=== PATIENT | male | born 1945 | race Caucasian/White ===

== ENCOUNTER 2022-03-27 22:01 | Emergency (ER) | payer OTHER ==
--- NOTE | 2022-03-27 23:10 | EDPHYS ---
Physician Documentation [facility] Name: David Kumar Age: 76 yrs Sex: Male : 1945 Arrival Date: 03/27/2022 Time: 22:06 Bed 3 Private MD: ED Physician Lino Rojas HPI: 03/28 03:29 This 76 yrs old Male presents to ER via Ambulatory with complaints of Urinary Problem. kdr 03:29 The patient presents with urinary symptoms, retention. Onset: The symptoms/episode kdr began/occurred gradually, today. Modifying factors: The symptoms are alleviated by nothing, the symptoms are aggravated by nothing. Associated signs and symptoms: The patient has no apparent associated signs or symptoms. Severity of symptoms: At their worst the symptoms were moderate, severe, in the emergency department the symptoms are unchanged. The patient has not experienced similar symptoms in the past. The patient has been recently seen by a physician: Patient had a bronchoscopy done earlier today and since then has not been able to urinate. He did have general anesthesia for the procedure. Historical: - Allergies: 03/27 22:17 Albuterol; tw5 - PMHx: 22:17 CAD; Ulcers; tw5 - Immunization history:: Flu vaccine is up to date. - Social history:: Smoking status: Patient/guardian denies using tobacco, the patient reports quitting approximately 12 years ago. ROS: 03/28 03:29 Constitutional: Negative for fever, chills, and weight loss, Eyes: Negative for injury, kdr pain, redness, and discharge, ENT: Negative for injury, pain, and discharge, Neck: Negative for injury, pain, and swelling, Cardiovascular: Negative for chest pain, palpitations, and edema, Respiratory: Negative for shortness of breath, cough, wheezing, and pleuritic chest pain, Abdomen/GI: Negative for abdominal pain, nausea, vomiting, diarrhea, and constipation, Back: Negative for injury and pain, MS/Extremity: Negative for injury and deformity, Skin: Negative for injury, rash, and discoloration, Neuro: Negative for headache, weakness, numbness, tingling, and seizure activity. Psych: Negative for depression, anxiety, suicide ideation, homicidal ideation, and hallucinations, Allergy/Immunology: Negative for hives, rash, and allergies, Endocrine: Negative for neck swelling, polydipsia, polyuria, polyphagia, and marked weight changes, Hematologic/Lymphatic: Negative for swollen nodes, abnormal bleeding, and unusual bruising. : Positive for urinary symptoms, difficulty urinating. Exam: 03:29 Constitutional: This is a well developed, well nourished patient who is awake, alert, kdr and in no acute distress. Head/Face: Normocephalic, atraumatic. Eyes: Pupils equal round and reactive to light, extra-ocular motions intact. Lids and lashes normal. Conjunctiva and sclera are non-icteric and not injected. Cornea within normal limits. Periorbital areas with no swelling, redness, or edema. Abdomen/GI: Soft, non-tender, with normal bowel sounds. No distension or tympany. No guarding or rebound. No evidence of tenderness throughout. Back: No spinal tenderness. No costovertebral tenderness. Full range of motion. Vital Signs: 03/27 22:13 BP 129 / 75; Pulse 62; Resp 18; Temp 98.2(O); Pulse Ox 96% on R/A; Weight 72.57 kg; tw5 Height 5 ft. 10 in. (177.80 cm); Pain 2/10; 23:16 BP 116 / 78; Pulse 54; Resp 18; Pulse Ox 97% on R/A; sm5 22:13 Body Mass Index 22.96 (72.57 kg, 177.80 cm) tw5 22:13 "It okeefe if I try and pee." tw5 MDM: 23:09 Patient medically screened. kdr 03/28 03:29 Data reviewed: vital signs, nurses notes, radiologic studies. Counseling: I had a kdr detailed discussion with the patient and/or guardian regarding: the historical points, exam findings, and any diagnostic results supporting the discharge/admit diagnosis, radiology results, the need for outpatient follow up. ED course: Bladder scanner revealed 350 cc of urine. Subsequently the patient was catheterized and returned approximately 850 mL of urine. He felt much better. Hall catheter was removed and the patient was discharged home in good condition. He was happy with the care provided the plan for discharge and follow-up. 03/27 22:47 Order name: Bladder Scanner; Complete Time: 23:05 kdr Administered Medications: No medications were administered Disposition Summary: 03/27/22 23:09 Discharge Ordered Location: Home kdr Problem: new kdr Symptoms: are resolved kdr Condition: Stable kdr Diagnosis - Urinary Retention kdr Followup: kdr - With: Private Physician - When: 1 - 2 days - Reason: If symptoms return, Further diagnostic work-up, Recheck today's complaints, Continuance of care, Re-evaluation by your physician Discharge Instructions: - Discharge Summary Sheet kdr - Acute Urinary Retention, Male, [id number] kdr Forms: - Medication Reconciliation Form kdr - Thank You Letter kdr Signatures: Lino Rojas MD MD kdr Johana Phillips tw5
--- NOTE | 2022-03-27 23:10 | ER ---
Nurse's Notes [facility] Name: David Kumar Age: 76 yrs Sex: Male : 1945 Arrival Date: 03/27/2022 Time: 22:06 Bed 3 Private MD: Diagnosis: Urinary Retention Presentation: 03/27 22:13 Chief complaint: Patient states: "I had a test done today and I have not been able to tw5 pee since." Patient handed nursing staff Pulmonary discharge instructions for bronchocospy. "They recommended taylor with a valve on it.". Coronavirus screen: Vaccine status: Patient reports receiving the 2nd dose of the covid vaccine. Umbrella Here. Ebola Screen: Patient negative for fever greater than or equal to 101.5 degrees Fahrenheit, and additional compatible Ebola Virus Disease symptoms Patient denies exposure to infectious person. Patient denies travel to an Ebola-affected area in the 21 days before illness onset. Initial Sepsis Screen: Does the patient meet any 2 criteria? No. Patient's initial sepsis screen is negative. Does the patient have a suspected source of infection? Yes: Dysuria/Frequency/Urgency/UTI. Risk Assessment: Do you want to hurt yourself or someone else? Patient reports no desire to harm self or others. Onset of symptoms was March 27, 2022. 22:13 Acuity: CHRISTIANO 3 tw5 22:13 Method Of Arrival: Ambulatory tw5 Triage Assessment: 22:17 General: Appears in no apparent distress. Behavior is calm, cooperative, appropriate tw5 for age. Pain: Pain currently is 3 out of 10 on a pain scale. Historical: - Allergies: 22:17 Albuterol; tw5 - PMHx: 22:17 CAD; Ulcers; tw5 - Immunization history:: Flu vaccine is up to date. - Social history:: Smoking status: Patient/guardian denies using tobacco, the patient reports quitting approximately 12 years ago. Screenin:15 Abuse screen: Denies threats or abuse. Denies injuries from another. Nutritional sm5 screening: No deficits noted. Tuberculosis screening: No symptoms or risk factors identified. Fall Risk Ambulatory Aid- Crutches/Cane/Walker (15 pts). Total Norton Fall Scale indicates No Risk (0-24 pts). Assessment: 23:14 General: Appears in no apparent distress. Behavior is cooperative. Pain: Denies pain. sm5 Neuro: No deficits noted. Level of Consciousness is awake, alert, obeys commands, Oriented to person, place, time, situation. Cardiovascular: No deficits noted. Capillary refill < 3 seconds Patient's skin is warm and dry. Respiratory: No deficits noted. Airway is patent Trachea midline Respiratory effort is even, unlabored. GI: No deficits noted. Abdomen is flat, non-distended. : Reports inability to void. Vital Signs: 22:13 BP 129 / 75; Pulse 62; Resp 18; Temp 98.2(O); Pulse Ox 96% on R/A; Weight 72.57 kg; tw5 Height 5 ft. 10 in. (177.80 cm); Pain 2/10; 23:16 BP 116 / 78; Pulse 54; Resp 18; Pulse Ox 97% on R/A; sm5 22:13 Body Mass Index 22.96 (72.57 kg, 177.80 cm) tw5 22:13 "It okeefe if I try and pee." tw5 ED Course: 22:06 Patient arrived in ED. kz 22:15 Lino Rojas MD is Attending Physician. kdr 22:17 Triage completed. tw5 22:17 Arm band placed on right wrist. tw5 22:36 Alyce Shrestha, YUNIER is Primary Nurse. sm5 23:05 Bladder scan completed. 324ml. sm5 23:15 Patient has correct armband on for positive identification. Bed in low position. Call sm5 light in reach. Side rails up X2. 23:15 No provider procedures requiring assistance completed. Patient did not have IV access sm5 during this emergency room visit. 23:15 Straight cath inserted, using sterile technique, 16 Fr. Returned 800ml. sm5 Administered Medications: No medications were administered Medication: 23:15 VIS not applicable for this client. sm5 Outcome: 23:09 Discharge ordered by . kdr 23:24 Discharged to home ambulatory. tw5 23:24 Condition: stable 23:24 Discharge instructions given to patient, Instructed on discharge instructions, follow up and referral plans. Demonstrated understanding of instructions, follow-up care. 23:24 Patient left the ED. tw5 Signatures: Lino Rojas MD MD kdr Wood, Tiffany tw Alyce Shrestha, YUNIER RN sm5 Shaffer, Mally kz
[2022-03-27 23:28] VITALS: TEMP 98.2
[2022-03-27 23:30] VITALS: BP 116/78; O2SAT 97
== END 2022-03-27 23:24 | disposition home or self-care (01) ==
LOC: ER 22:01
DX: R33.9 Retention of urine, unspecified (principal); I25.10 Atherosclerotic heart disease of native coronary artery without angina pectoris; Z88.8 Allergy status to other drugs, medicaments and biological substances
CPT/HCPCS: 51702; 99281

== ENCOUNTER 2022-12-11 08:48 | Inpatient (IN) | payer OTHER ==
[2022-12-11 09:25] LABS: Absolute Lymphocytes (CBC) 0.8 K/uL (0.7-4.9); Hematocrit 47.5 % (39.6-49.0); Lymphocytes % 4.8 % (15.3-44.8); MCV 92.3 fL (80-100); MPV 8.2 fL (7.6-11.3); RBC Red Blood Cell Count 5.15 M/uL (4.33-5.43)
[2022-12-11] MEDS ORDERED: NA CHLORIDE 0.9% 2,000 ML ONE (09:27)
[2022-12-11 09:44] LABS: Albumin 2.6 g/dL (3.4-5.0); Bilirubin Total 2.6 mg/dL (0.2-1.0); Potassium 4.6 mmol/L (3.5-5.1); Protein, Total 6.8 g/dL (6.4-8.2)
[2022-12-11] MEDS ORDERED: CEFEPIME 2 GM VIAL ONE (09:47)
[2022-12-11] MEDS ORDERED: NA CHLORIDE 0.9% 100 ML ONE (09:47)
[2022-12-11 10:10] LABS: Protime INR 1.44
[2022-12-11] MEDS ORDERED: NOREPINEPHRINE BITARTRATE/D5W 4 MG/250 ML BAG IV ONE ×2 (10:49→16:26)
[2022-12-11 10:59] LABS: Blood Morphology Comment NOT SEEN (NOT SEEN); Platelet Estimate ADEQ
--- NOTE | 2022-12-11 11:33 | RAD REPORT ---
EXAM DESCRIPTION: RAD - Chest Single View - 12/11/2022 11:05 am CLINICAL HISTORY: sob, ams Chest pain. COMPARISON: No comparisons FINDINGS: Portable technique limits examination quality. The lungs are emphysematous but grossly clear. The heart is normal in size. No displaced fractures.St ernotomy wires. IMPRESSION: COPD.
[2022-12-11 12:41] LABS: SARS-COV-2 RT PCR NEGATIVE (NEGATIVE)
[2022-12-11] MEDS ORDERED: AMIODARONE HCL 900 MG in Dextrose 5%-Water 482 ML IV SCH (13:00)
[2022-12-11 13:03] LABS: Urine Blood 3+ (Negative); Urine Glucose Negative (Negative); Urine Protein 2+ (Negative); Urine Specific Gravity 1.025 (1.005-1.030)
[2022-12-11 13:23] LABS: Urine Bacteria <20 /HPF (<20); Urine Mucus 2+ /HPF (None Seen); Urine RBC >50 /HPF (None Seen); Urine WBC Clump Moderate /HPF (None Seen)
[2022-12-11] MEDS ORDERED: HEPARIN/D5W 25,000 UNIT/500 ML BAG IV ONE (13:25)
--- NOTE | 2022-12-11 13:46 | RAD REPORT ---
EXAM DESCRIPTION: CT - Head Brain Wo Cont - 12/11/2022 1:33 pm CLINICAL HISTORY: ams Headache, drowsiness COMPARISON: No comparisons TECHNIQUE: All CT scans are performed using dose optimization technique as appropriate and may inclu de automated exposure control or mA/KV adjustment according to patient size. FINDINGS: No intracranial hemorrhage, hydrocephalus or extra-axial fluid collection.Mild generalized brain atrophy is present with mild periventricular and deep white matter chronic microvascular ische jesus changes.No areas of brain edema or evidence of midline shift. Small amount of fluid in both maxillary antra. The calvarium is intact. IMPRESSION: No acute intracranial abnormality.
[2022-12-11] MEDS ORDERED: D5W 100 ML IV ONE (13:47)
[2022-12-11] MEDS ORDERED: AMIODARONE HCL 150 MG/3 ML INJ IV ONE (13:47)
--- NOTE | 2022-12-11 13:52 | RAD REPORT ---
EXAM DESCRIPTION: CT - Chest Abd Pelvis Wo Con - 12/11/2022 1:33 pm CLINICAL HISTORY: Chest and abdomen pain. ams, sob COMPARISON: No comparisons TECHNIQUE: A limited noncontrast study was performed. All CT scans are performed using dose optimization technique as appropriate and may include automated exposure control or mA/KV adjustment according to patient size. FINDINGS: Significant emphysema is present.There is a moderate sized area of consolidation in the me dial left lung base.Trace right pleural effusion.No intrathoracic adenopathy. The liver, spleen, pancreas, adrenal glands and left kidney are within normal limits. 6 cm cyst right kidney. No bowel obstruction, free air, free fluid or abscess. Moderate retained stool in the rectum. No pat hologic lymphadenopathy in the abdomen or pelvis. No worrisome osseous finding. IMPRESSION: Moderate consolidation medial left lung base may represent pneumonia. Recommend follow-u p imaging until clearance. Fecal retention in the rectum.
[2022-12-11] MEDS ORDERED: ACETAMINOPHEN 650MG/RECT SUPP PR ONE (14:18)
--- NOTE | 2022-12-11 14:27 | ER ---
Nurse's Notes [facility] Name: David Kumar Age: 77 yrs Sex: Male : 1945 Arrival Date: 12/11/2022 Time: 08:54 Bed 2 Private MD: Diagnosis: Community-acquired pneumonia;Severe sepsis with septic shock;Atrial fibrillation with RVR Presentation: 12/11 08:37 Chief complaint: EMS states: reports difficulty breathing and altered mental kc6 status. client was in the low 80's o RA and came back up to the low 90's on NRB. client is in afib RVR en route. 5mg of metoprolol IVP given en route. 08:37 Coronavirus screen: At this time, the client does not indicate any symptoms associated kc6 with coronavirus-19. Ebola Screen: No symptoms or risks identified at this time. Initial Sepsis Screen: Does the patient meet any 2 criteria? RR > 20 per min. Temp <36.0*C (96.8*F)) or > 38.3*C (100.9*F). Systolic BP < 90 mmHg. Mean Arterial Pressure (MAP) < 65. Altered Mental Status. HR > 90 bpm. Yes Does the patient have a suspected source of infection? No. Patient's initial sepsis screen is negative. Risk Assessment: Do you want to hurt yourself or someone else? Patient reports no desire to harm self or others. Onset of symptoms was December 11, 2022. 08:37 Method Of Arrival: EMS: [facility] 08:37 Acuity: CHRISTIANO 2 kc6 Triage Assessment: 08:37 General: Appears distressed, uncomfortable, unkempt, Behavior is quiet. Pain: Unable to kc6 use pain scale. Patient is disoriented. EENT: No signs and/or symptoms were reported regarding the EENT system. Neuro: Gamino Agitation-Sedation Scale (RASS): 0 - Alert and Calm Level of Consciousness is awake, alert, Oriented to none. Cardiovascular: Heart tones S1 S2 present Capillary refill < 3 seconds. Respiratory: Airway is patent Trachea midline Respiratory effort is even, with retractions, Respiratory pattern is regular, tachypnea. GI: No signs and/or symptoms were reported involving the gastrointestinal system. : No signs and/or symptoms were reported regarding the genitourinary system. Derm: Skin is intact. Derm: No signs and/or symptoms reported regarding the dermatologic system. Skin with poor turgor Skin is pink, warm \T\ dry. Wound noted sacrum, right buttocks Bruising that is dark purple, on right shoulder. Musculoskeletal: No signs and/or symptoms reported regarding the musculoskeletal system. Circulation, motion, and sensation intact. Capillary refill < 3 seconds, Range of motion: intact in all extremities. Historical: - Allergies: 09:34 Albuterol; kc6 09:34 gabapentin; kc6 - Home Meds: 14:58 aspirin 81 mg oral tab [Active]; atorvastatin 20 mg oral tab [Active]; kc6 carboxymethylcellulose-citric acid oral [Active]; cyanocobalamin (vitamin B-12) oral [Active]; folic acid 1 mg oral tab [Active]; galantamine 16 mg oral C24P [Active]; ketoconazole 2 % topical sham [Active]; montelukast 10 mg oral tab [Active]; nitroglycerin 0.4 mg sublingual subl [Active]; omeprazole 20 mg oral TbEC [Active]; tamsulosin 0.4 mg oral cap [Active]; terbinafine hcl 1% cream [Active]; - PMHx: 09:34 CAD; Ulcers; kc6 13:53 COPD; jl7 14:58 stage 1 lung cancer; kc6 - Immunization history:: Adult Immunizations unknown. - Social history:: Smoking status: unknown. Screenin:49 [facility] ED Fall Risk Assessment (Adult) History of falling in the last 3 months, kc6 including since admission No falls in past 3 months (0 pts) Confusion or Disorientation Yes (5 pts) Intoxicated or Sedated No (0 pts) Impaired Gait No (0 pts) Mobility Assist Device Used No (0 pt) Altered Elimination Yes (1 pt) Score/Fall Risk Level 3 or more points = High Risk Oriented to surroundings, Maintained a safe environment, Educated pt \T\ family on fall prevention, incl call for assistance when getting out of bed, Assessed \T\ reinforced patient's understanding of fall precautions, Hourly rounding (assess needs \T\ fall precautionary measures) done. Abuse screen: Denies threats or abuse. Denies injuries from another. Nutritional screening: No deficits noted. Tuberculosis screening: No symptoms or risk factors identified. Assessment: 08:34 Reassessment: Code sepsis called. jl7 09:30 Reassessment: Attempted to contact phlebotomy for assistance with obtaining blood jl7 cultures, no response. 09:35 Reassessment: Attempted to contact phlebotomy for assistance with obtaining blood jl7 cultures, no response. 09:37 Reassessment: No changes from previously documented assessment. Patient and/or family kc6 updated on plan of care and expected duration. Pain level reassessed. 09:40 Reassessment: Phlebotomy notified via text message on phlebotomy pager of need for jl7 assistance with obtaining blood cultures. 10:10 Reassessment: Multiple attempts to contact phlebotomy for assistance with obtaining jl7 blood cultures, no answer on lab extension [id number]. Phlebotomy notified via text message on phlebotomy pager of need for assistance with obtaining blood cultures. No response from phlebotomy. First set of blood cultures obtained after several missed attempts. HARSHAL Godinez at bedside to place central line. 10:37 Reassessment: No changes from previously documented assessment. Patient and/or family kc6 updated on plan of care and expected duration. Pain level reassessed. 11:37 Reassessment: No changes from previously documented assessment. Patient and/or family kc6 updated on plan of care and expected duration. Pain level reassessed. 11:45 Reassessment: notified HARSHAL Godinez of BP. stated to keep SBP > 90 and MAP 65 or >. no [facility] change to current rate at this time. 12:25 Reassessment: notified HARSHAL Godinez of afib RVR rate 130's-150's. no new orders received at [facility] this time. 12:37 Reassessment: Patient appears in no apparent distress at this time. No changes from [facility] previously documented assessment. Patient and/or family updated on plan of care and expected duration. Pain level reassessed. 13:04 Reassessment: Nikhil Kumar (son) [phone]. [facility] 13:37 Reassessment: Patient appears in no apparent distress at this time. No changes from [facility] previously documented assessment. Patient and/or family updated on plan of care and expected duration. Pain level reassessed. 14:22 Reassessment: Provider notified of urine leaking around Hall catheter, stated d/c vg1 catheter and place condom cath. Pt linen, gown and brief changed. 14:33 Reassessment: Patient appears in no apparent distress at this time. No changes from 6 previously documented assessment. Patient and/or family updated on plan of care and expected duration. Pain level reassessed. 15:17 Reassessment: Laurel Kumar () [phone]. [facility] 15:33 Reassessment: Patient appears in no apparent distress at this time. No changes from kc6 previously documented assessment. Patient and/or family updated on plan of care and expected duration. Pain level reassessed. 16:33 Reassessment: Patient appears in no apparent distress at this time. No changes from 6 previously documented assessment. Patient and/or family updated on plan of care and expected duration. Pain level reassessed. 16:42 Reassessment: please see [facility] for further charting. [facility] Vital Signs: 08:37 BP 85 / 65; Pulse 131; Resp 34 S; Temp 93.3(R); Pulse Ox 94% on Non-rebreather mask; kc6 09:00 BP 95 / 61; Pulse 127; Resp 28 S; Pulse Ox 87% on BiPAP; kc6 09:15 BP 88 / 58; Pulse 131; Resp 39 S; kc6 09:22 Weight 66.5 kg (M); Height 5 ft. 9 in. (175.26 cm) (R); kc6 09:30 BP 98 / 60; Pulse 125; Resp 29 S; Pulse Ox 95% on BiPAP; kc6 09:45 BP 107 / 72; Pulse 120; Pulse Ox 97% on BiPAP; kc6 10:00 BP 88 / 66; Pulse 120; Resp 27 S; Pulse Ox 95% on BiPAP; kc6 10:15 BP 84 / 65; Pulse 117; Resp 32 S; Pulse Ox 94% on BiPAP; kc6 10:30 BP 89 / 59; Pulse 122; Resp 29 S; Pulse Ox 95% on BiPAP; kc6 10:45 BP 73 / 58; Pulse 122; Resp 35 S; Pulse Ox 93% on BiPAP; kc6 10:47 BP 87 / 70; Pulse 123; Resp 33 S; kc6 11:08 BP 91 / 64; Pulse 122; Resp 38 S; Pulse Ox 88% on BiPAP; kc6 11:15 BP 82 / 64; Pulse 126; Resp 37 S; Pulse Ox 88% on BiPAP; kc6 11:30 BP 94 / 71; Pulse 124; Resp 39 S; Pulse Ox 94% on BiPAP; kc6 11:45 BP 103 / 68; Pulse 134; Resp 30 S; Pulse Ox 91% on BiPAP; kc6 12:00 BP 96 / 79; Pulse 141; Resp 39 S; Pulse Ox 94% on BiPAP; kc6 12:15 BP 103 / 80; Pulse 137; Resp 26; Pulse Ox 92% on BiPAP; vg1 12:30 BP 106 / 82; Pulse 147; Resp 34; Pulse Ox 94% on BiPAP; vg1 12:45 BP 107 / 62; Pulse 135; Resp 38; Pulse Ox 94% on BiPAP; vg1 13:00 BP 101 / 76; Pulse 141; Resp 38; Pulse Ox 94% on BiPAP; vg1 13:30 BP 87 / 61; Pulse 127; Resp 38; Pulse Ox 93% on BiPAP; vg1 13:30 BP 87 / 61; jl7 13:35 BP 88 / 60; Pulse 128; Resp 44; Pulse Ox 91% on BiPAP; vg1 13:37 BP 88 / 60; Pulse 128; jl7 13:45 BP 97 / 70; Pulse 126; Resp 33; Pulse Ox 92% on BiPAP; vg1 14:00 BP 103 / 77; Pulse 113; Resp 34; Pulse Ox 92% on BiPAP; vg1 14:12 Temp 100.3(R); vg1 14:30 BP 102 / 68; Pulse 110; Resp 36; Pulse Ox 97% on BiPAP; vg1 14:45 BP 105 / 70; Pulse 115; Resp 37 S; Pulse Ox 99% on BiPAP; kc6 15:00 BP 121 / 76; Pulse 115; Resp 37 S; Pulse Ox 99% on BiPAP; kc6 15:15 BP 92 / 65; Pulse 110; Resp 32 S; Pulse Ox 98% on BiPAP; kc6 15:30 BP 100 / 67; Pulse 112; Resp 30 S; Pulse Ox 100% on BiPAP; kc6 15:45 BP 92 / 65; Pulse 113; Resp 40 S; Pulse Ox 99% on BiPAP; kc6 16:00 BP 102 / 74; Pulse 115; Resp 38 S; Pulse Ox 100% on BiPAP; kc6 16:15 BP 90 / 73; Pulse 109; Resp 33 S; Pulse Ox 99% on BiPAP; kc6 16:15 BP 108 / 86; Pulse 112; Resp 32 S; Pulse Ox 96% on BiPAP; kc6 12/12 23:00 Temp 97.6(O); mw1 12/11 09:22 Body Mass Index 21.65 (66.50 kg, 175.26 cm) kc6 ED Course: 12/11 08:37 Arm band placed on. kc6 08:54 Patient arrived in ED. kc6 08:54 Hossein Rowe DO is Attending Physician. ms3 08:54 Missed attempt(s): 22 gauge in left forearm. unable to obain. vg1 08:55 [facility] 08:58 Missed attempt(s): 22 gauge in left forearm. unable to obtain . vg1 09:00 First set of blood cultures drawn missed attempt, unable to obtain. jl7 09:10 First set of blood cultures drawn Missed attempt, unable to obtain. jl7 09:15 Farida Griffin, RN is Primary Nurse. kc6 09:25 First set of blood cultures drawn missed attempt, unable to obtain. jl7 09:34 Triage completed. kc6 09:36 Patient has correct armband on for positive identification. Placed in gown. Bed in low kc6 position. Call light in reach. Side rails up X2. 09:36 Maintain EMS IV. Dressing intact. Good blood return noted. Site clean \T\ dry. Gauge \T\ terence 6 site: 18G RFA. 09:57 First set of blood cultures drawn by me. jl7 10:25 Assisted provider with central line placement. Set up central line tray. Triple lumen kc6 line placed in right femoral. Line placed by Herbert CAPUTO Placement verified by blood return, Dressed with Tegaderm, Blood was collected. Patient tolerated well. Patient \T\ family education about procedure, CLABSI prevention and S/S of infection? Yes. Was handwashing/sanitizing done immediately prior to procedure? Yes. Was patient positioned to in a way to prevent air embolism? Yes. Was procedure site sterilized? Yes, with chlorhexidine. Was the site allowed to dry? Yes. Was local anesthetic and/or sedation utilized? Yes. During the procedure, did the Practitioner(s) maintain a sterile field? Yes. Was blood aspirated from each lumen? Yes. After the procedure, did the Practitioner(s) clean the site and apply a sterile dressing? Yes. 11:07 Chest Single View XRAY In Process Unspecified. EDMS 11:56 COVID-19/FLU A+B Sent. kc6 13:07 Urine Microscopic Only Sent. kc6 13:07 Urine Culture Sent. kc6 13:35 CT Head Brain wo Cont In Process Unspecified. EDMS 13:35 CT Chest Abdomen Pelvis W/O Contrast In Process Unspecified. EDMS 14:26 Anselmo Caldwell is Hospitalizing Provider. jmm 16:44 Patient admitted, IV remains in place. [facility] Administered Medications: 09:30 Drug: NS 0.9% (30 ml/kg) 30 ml/kg Route: IV; Rate: bolus; Site: right forearm; [facility] 10:30 Follow up: Response: No adverse reaction; IV Status: Completed infusion; IV Intake: kc6 2000ml 10:45 Drug: Cefepime 2 grams Route: IVPB; Rate: 200 ml/hr; Infused Over: 30 mins; Site: right kc6 femoral; 11:45 Follow up: Response: No adverse reaction; IV Status: Completed infusion; IV Intake: kc6 100ml 10:54 Drug: Norepinephrine 0.1 mcg/kg/min Route: IV; Rate: calculated rate; Site: right kc6 femoral; 11:27 Follow up: Rate change 0.15 mcg/kg/min [facility] 13:30 Follow up: BP 87 / 61; Rate change 0.2 mcg/kg/min [facility] 13:37 Follow up: BP 88 / 60; Pulse 128 bpm; Rate change 0.25 mcg/kg/min [facility] 18:17 Follow up: Response: No adverse reaction; IV Status: Infusion continued upon admission [facility] 13:50 Drug: amiodarone 150 mg Volume: 100 ml; Route: IVPB; Infused Over: 10 mins; Site: right jl7 femoral; 14:53 Follow up: Response: No adverse reaction; IV Status: Completed infusion; IV Intake: kc6 100ml 14:04 Drug: amiodarone 900 mg, D5W 500 ml Route: IVPB; Rate: 1 mg/min; Site: right femoral; [facility] 18:17 Follow up: Response: No adverse reaction; IV Status: Infusion continued upon admission; kc6 IV Intake: 500ml 14:04 Drug: Heparin (GA Drip) 12 units/kg/hr - (HEParin 60138 units, D5W 500 ml) kc6 {Co-Signature: vg1 (Tessy Kiran RN).} Route: IV; Rate: calculated rate; Site: right femoral; 18:16 Follow up: Response: No adverse reaction; IV Status: Infusion continued upon admission; kc6 IV Intake: 500ml 14:30 Drug: Acetaminophen Suppository 650 mg Route: MS; kc6 15:30 Follow up: Response: No adverse reaction; Temperature is decreased kc6 Medication: 16:44 VIS not applicable for this client. kc6 Intake: 10:30 IV: 2000ml; Total: 2000ml. kc6 11:45 IV: 100ml; Total: 2100ml. kc6 14:53 IV: 100ml; Total: 2200ml. kc6 18:16 IV: 500ml; Total: 2700ml. kc6 18:17 IV: 500ml; Total: 3200ml. kc6 Outcome: 14:27 Decision to Hospitalize by Provider. [facility] 16:43 Admitted to ER Hold. Please see [facility] for further documentation. kc6 16:43 Condition: stable 16:43 Instructed on the need for admit. 12/13 00:16 Patient left the ED. vc1 Signatures: Dispatcher [employer] EDMS Herbert Gross PA PA jmm Leal, Jahala, RN RN jl7 Paresh Baker mw1 Tessy Kiran RN RN vg1 Hossein Rowe DO DO ms3 Deanna Correa RN RN vc1 Farida Griffin RN RN kc6 Tessy Kiran RN vg1 Corrections: (The following items were deleted from the chart) 12/11 11:03 09:37 Reassessment: Patient appears in no apparent distress at this time. No changes kc6 from previously documented assessment. Patient and/or family updated on plan of care and expected duration. Pain level reassessed. kc6 11: 09:22 66.5 kg Measured; kc6 kc6 11:22 09:36 Maintain EMS IV. Dressing intact. Good blood return noted. Site clean \T\ dry. kc6 Gauge \T\ site: 18G RFA. kc6 12:01 08:54 Missed attempt(s): 22 gauge in left forearm. vg1 vg1 12: 08:58 Missed attempt(s): 22 gauge in left forearm. vg1 vg1 12:09 11:45 Reassessment: spoke with HARSHAL Godinez. stated to keep SBP > 90 and MAP 65 or >. kc6 kc6 14:52 08:37 Derm: No signs and/or symptoms reported regarding the dermatologic system. Skin kc6 is pink, warm \T\ dry. kc6 15:45 12:37 Reassessment: Patient appears in no apparent distress at this time. No changes kc6 from previously documented assessment. Patient and/or family updated on plan of care and expected duration. Pain level reassessed. Patient is alert, oriented x 3, equal unlabored respirations, skin warm/dry/pink. kc6 15:45 13:37 Reassessment: Patient appears in no apparent distress at this time. No changes kc6 from previously documented assessment. Patient and/or family updated on plan of care and expected duration. Pain level reassessed. Patient is alert, oriented x 3, equal unlabored respirations, skin warm/dry/pink. kc6 15:45 14:33 Reassessment: Patient appears in no apparent distress at this time. No changes kc6 from previously documented assessment. Patient and/or family updated on plan of care and expected duration. Pain level reassessed. Patient is alert, oriented x 3, equal unlabored respirations, skin warm/dry/pink. kc6
--- NOTE | 2022-12-11 14:28 | EDPHYS ---
Physician Documentation [facility] Name: David Kumar Age: 77 yrs Sex: Male : 1945 Arrival Date: 12/11/2022 Time: 08:54 Bed 2 Private MD: ED Physician Hossein Rowe HPI: 12/11 09:20 This 77 yrs old Male presents to ER via Unassigned with complaints of sob, ams. [facility] 09:20 The patient has shortness of breath at rest. Onset: The symptoms/episode began/occurred jmm gradually, 2 day(s) ago. This is a 77 year old male with a history of stage I lung cancer that presents to the ED with complaints of ams and shortness of breath per ems. EMS states the family noticed the patient was altered 2 days ago. . Historical: - Allergies: 09:34 Albuterol; kc6 09:34 gabapentin; kc6 - Home Meds: 14:58 aspirin 81 mg oral tab [Active]; atorvastatin 20 mg oral tab [Active]; kc6 carboxymethylcellulose-citric acid oral [Active]; cyanocobalamin (vitamin B-12) oral [Active]; folic acid 1 mg oral tab [Active]; galantamine 16 mg oral C24P [Active]; ketoconazole 2 % topical sham [Active]; montelukast 10 mg oral tab [Active]; nitroglycerin 0.4 mg sublingual subl [Active]; omeprazole 20 mg oral TbEC [Active]; tamsulosin 0.4 mg oral cap [Active]; terbinafine hcl 1% cream [Active]; - PMHx: 09:34 CAD; Ulcers; kc6 13:53 COPD; jl7 14:58 stage 1 lung cancer; kc6 - Immunization history:: Adult Immunizations unknown. - Social history:: Smoking status: unknown. ROS: 09:20 Unable to obtain ROS due to altered mental status. [facility] Exam: 09:20 Head/Face: atraumatic. Eyes: EOMI, no conjunctival erythema appreciated [facility] 09:20 Neck: Trachea midline, Supple Chest/axilla: Normal chest wall appearance and motion. 09:20 Abdomen/GI: Non distended Back: Normal ROM Skin: General appearance color normal MS/ Extremity: Moves all extremities, no obvious deformities appreciated, no edema noted to the lower extremities Neuro: Awake and alert Psych: Behavior is normal, Mood is normal, Patient is cooperative and pleasant 09:20 Constitutional: The patient appears in obvious distress. 09:20 ENT: Mouth: Oral mucosa: dry. 09:20 Cardiovascular: Rate: tachycardic. 09:20 Respiratory: moderate respiratory distress is noted, Respirations: labored breathing, that is moderate, Breath sounds: are clear throughout, Respiratory rate: 40 Vital Signs: 08:37 BP 85 / 65; Pulse 131; Resp 34 S; Temp 93.3(R); Pulse Ox 94% on Non-rebreather mask; kc6 09:00 BP 95 / 61; Pulse 127; Resp 28 S; Pulse Ox 87% on BiPAP; kc6 09:15 BP 88 / 58; Pulse 131; Resp 39 S; kc6 09:22 Weight 66.5 kg (M); Height 5 ft. 9 in. (175.26 cm) (R); kc6 09:30 BP 98 / 60; Pulse 125; Resp 29 S; Pulse Ox 95% on BiPAP; kc6 09:45 BP 107 / 72; Pulse 120; Pulse Ox 97% on BiPAP; kc6 10:00 BP 88 / 66; Pulse 120; Resp 27 S; Pulse Ox 95% on BiPAP; kc6 10:15 BP 84 / 65; Pulse 117; Resp 32 S; Pulse Ox 94% on BiPAP; kc6 10:30 BP 89 / 59; Pulse 122; Resp 29 S; Pulse Ox 95% on BiPAP; kc6 10:45 BP 73 / 58; Pulse 122; Resp 35 S; Pulse Ox 93% on BiPAP; kc6 10:47 BP 87 / 70; Pulse 123; Resp 33 S; kc6 11:08 BP 91 / 64; Pulse 122; Resp 38 S; Pulse Ox 88% on BiPAP; kc6 11:15 BP 82 / 64; Pulse 126; Resp 37 S; Pulse Ox 88% on BiPAP; kc6 11:30 BP 94 / 71; Pulse 124; Resp 39 S; Pulse Ox 94% on BiPAP; kc6 11:45 BP 103 / 68; Pulse 134; Resp 30 S; Pulse Ox 91% on BiPAP; kc6 12:00 BP 96 / 79; Pulse 141; Resp 39 S; Pulse Ox 94% on BiPAP; kc6 12:15 BP 103 / 80; Pulse 137; Resp 26; Pulse Ox 92% on BiPAP; vg1 12:30 BP 106 / 82; Pulse 147; Resp 34; Pulse Ox 94% on BiPAP; vg1 12:45 BP 107 / 62; Pulse 135; Resp 38; Pulse Ox 94% on BiPAP; vg1 13:00 BP 101 / 76; Pulse 141; Resp 38; Pulse Ox 94% on BiPAP; vg1 13:30 BP 87 / 61; Pulse 127; Resp 38; Pulse Ox 93% on BiPAP; vg1 13:30 BP 87 / 61; jl7 13:35 BP 88 / 60; Pulse 128; Resp 44; Pulse Ox 91% on BiPAP; vg1 13:37 BP 88 / 60; Pulse 128; jl7 13:45 BP 97 / 70; Pulse 126; Resp 33; Pulse Ox 92% on BiPAP; vg1 14:00 BP 103 / 77; Pulse 113; Resp 34; Pulse Ox 92% on BiPAP; vg1 14:12 Temp 100.3(R); vg1 14:30 BP 102 / 68; Pulse 110; Resp 36; Pulse Ox 97% on BiPAP; vg1 14:45 BP 105 / 70; Pulse 115; Resp 37 S; Pulse Ox 99% on BiPAP; kc6 15:00 BP 121 / 76; Pulse 115; Resp 37 S; Pulse Ox 99% on BiPAP; kc6 15:15 BP 92 / 65; Pulse 110; Resp 32 S; Pulse Ox 98% on BiPAP; kc6 15:30 BP 100 / 67; Pulse 112; Resp 30 S; Pulse Ox 100% on BiPAP; kc6 15:45 BP 92 / 65; Pulse 113; Resp 40 S; Pulse Ox 99% on BiPAP; kc6 16:00 BP 102 / 74; Pulse 115; Resp 38 S; Pulse Ox 100% on BiPAP; kc6 16:15 BP 90 / 73; Pulse 109; Resp 33 S; Pulse Ox 99% on BiPAP; kc6 16:15 BP 108 / 86; Pulse 112; Resp 32 S; Pulse Ox 96% on BiPAP; 6 12/12 23:00 Temp 97.6(O); mw1 12/11 09:22 Body Mass Index 21.65 (66.50 kg, 175.26 cm) 6 Procedures: 12/11 10:31 Central Line: the site was prepped with Betadine, in sterile fashion, a triple lumen [facility] catheter was inserted, in the right femoral vein, in 3 attempts. placement was verified, by blood return, the site was dressed with using sterile technique, the patient tolerated the procedure, well. MDM: 08:[address] [facility] 09:47 ED course: Sepsis Reevaluation Complete. [facility] 13:58 ED course: Patient now meets criteria for severe sepsis with septic shock. a) Source jmm pneumonia (Identified on CT imaging) b) sirs criteria met c) lactate > 2. Systolic bp < 90 and lactate greater than 4.. 14:23 Data reviewed: vital signs, nurses notes, lab test result(s), radiologic studies. [facility] Counseling: I had a detailed discussion with the patient and/or guardian regarding: the historical points, exam findings, and any diagnostic results supporting the discharge/admit diagnosis, lab results, radiology results, the need for further work-up and treatment in the hospital. 12/11 08:55 Order name: Blood Culture Adult (2) [facility] 12/11 08:55 Order name: CBC with Diff; Complete Time: 11:43 [facility] 12/11 08:55 Order name: CMP; Complete Time: 10:03 [facility] 12/11 08:55 Order name: Lactate w/ 2H reflex if indic.; Complete Time: 10:03 [facility] 12/11 08:55 Order name: Protime (+inr); Complete Time: 10:40 [facility] 12/11 08:55 Order name: Ptt, Activated; Complete Time: 10:40 [facility] 12/11 08:58 Order name: Troponin High Sensitivity; Complete Time: 10:03 [facility] 12/11 09:30 Order name: Glucose, Ancillary Testing; Complete Time: 09:44 [facility] 12/11 09:31 Order name: Manual Differential; Complete Time: 11:43 [facility] 12/11 10:42 Order name: COVID-19/FLU A+B; Complete Time: 12:42 [facility] 12/11 13:03 Order name: Urine Culture [facility] 12/11 13:03 Order name: Urine Microscopic Only; Complete Time: 13:25 [facility] 12/11 13:03 Order name: Urine Dipstick-Ancillary; Complete Time: 13:09 [facility] 12/11 13:11 Order name: Lactate Sepsis 2 HR Follow-up; Complete Time: 13:16 EDMS 12/11 16:31 Order name: NT PRO-BNP; Complete Time: 17:22 EDMS 12/11 16:33 Order name: Troponin High Sensitivity; Complete Time: 17:22 EDMS 12/11 16:47 Order name: Phosphorus; Complete Time: 17:22 EDMS 12/11 16:47 Order name: T4 Free; Complete Time: 17:22 EDMS 12/11 16:47 Order name: Magnesium; Complete Time: 17:22 EDMS 12/11 16:47 Order name: Thyroid Stimulating Hormone; Complete Time: 17:22 EDMS 12/11 19:31 Order name: ABG Arterial Blood Gas; Complete Time: 19:35 EDMS 12/11 19:50 Order name: PTT, Activated Partial Thromb; Complete Time: 20:17 EDMS 12/11 21:41 Order name: Troponin High Sensitivity; Complete Time: 02:42 EDMS 12/12 01:14 Order name: PTT, Activated Partial Thromb; Complete Time: 02:42 EDMS 12/12 04:40 Order name: CBC with Automated Diff EDMS 12/12 04:43 Order name: PTT, Activated Partial Thromb EDMS 12/12 04:58 Order name: Basic Metabolic Panel EDMS 12/12 11:43 Order name: PTT, Activated Partial Thromb EDMS 12/12 15:44 Order name: Gram Stain--Anaerobic Bottle EDMS 12/12 16:08 Order name: PTT, Activated Partial Thromb EDMS 12/11 08:55 Order name: EKG; Complete Time: 08:56 m 12/11 08:55 Order name: Accucheck; Complete Time: 09:22 m 12/11 08:55 Order name: Cardiac monitoring; Complete Time: 09:22 m 12/11 08:55 Order name: EKG - Nurse/Tech; Complete Time: 09:22 m 12/11 08:55 Order name: IV Saline Lock - Large Bore; Complete Time: 09:37 jmm 12/11 08:55 Order name: Labs collected and sent; Complete Time: 09:41 jmm 12/11 08:55 Order name: O2 Per Protocol; Complete Time: 09:23 jmm 12/11 08:55 Order name: O2 Sat Monitoring; Complete Time: 09:23 jmm 12/11 08:55 Order name: Urine Dipstick-Ancillary (obtain specimen); Complete Time: 13:03 [facility] 12/11 08:55 Order name: Vital Signs; Complete Time: 09:37 [facility] 12/11 08:56 Order name: BIPAP [facility] 12/11 08:57 Order name: Hall; Complete Time: 09:37 [facility] 12/11 08:58 Order name: Chest Single View XRAY; Complete Time: 11:43 [facility] 12/11 08:58 Order name: CT Head Brain wo Cont; Complete Time: 13:48 [facility] 12/11 09:30 Order name: Labs - recollect needed: recollect light blue top; Complete Time: 10:42 bd 12/11 09:45 Order name: Misc. Order: bear hugger; Complete Time: 10:03 [facility] 12/11 09:56 Order name: Central Line Kit; Complete Time: 10:08 [facility] 12/11 11:45 Order name: CT Chest Abdomen Pelvis W/O Contrast; Complete Time: 13:52 [facility] 12/12 19:56 Order name: Ptt, Activated jb4 12/12 20:27 Order name: PTT, Activated Partial Thromb EDMS 12/12 23:51 Order name: PTT, Activated Partial Thromb EDMS Administered Medications: 09:30 Drug: NS 0.9% (30 ml/kg) 30 ml/kg Route: IV; Rate: bolus; Site: right forearm; [facility] 10:30 Follow up: Response: No adverse reaction; IV Status: Completed infusion; IV Intake: kc6 2000ml 10:45 Drug: Cefepime 2 grams Route: IVPB; Rate: 200 ml/hr; Infused Over: 30 mins; Site: right kc femoral; 11:45 Follow up: Response: No adverse reaction; IV Status: Completed infusion; IV Intake: kc6 100ml 10:54 Drug: Norepinephrine 0.1 mcg/kg/min Route: IV; Rate: calculated rate; Site: right kc6 femoral; 11:27 Follow up: Rate change 0.15 mcg/kg/min [facility] 13:30 Follow up: BP 87 / 61; Rate change 0.2 mcg/kg/min 7 13:37 Follow up: BP 88 / 60; Pulse 128 bpm; Rate change 0.25 mcg/kg/min 7 18:17 Follow up: Response: No adverse reaction; IV Status: Infusion continued upon admission kc6 13:50 Drug: amiodarone 150 mg Volume: 100 ml; Route: IVPB; Infused Over: 10 mins; Site: right jl7 femoral; 14:53 Follow up: Response: No adverse reaction; IV Status: Completed infusion; IV Intake: kc6 100ml 14:04 Drug: amiodarone 900 mg, D5W 500 ml Route: IVPB; Rate: 1 mg/min; Site: right femoral; kc6 18:17 Follow up: Response: No adverse reaction; IV Status: Infusion continued upon admission; kc6 IV Intake: 500ml 14:04 Drug: Heparin (NM Drip) 12 units/kg/hr - (HEParin 54720 units, D5W 500 ml) kc6 {Co-Signature: vg1 (Tessy Kiran RN).} Route: IV; Rate: calculated rate; Site: right femoral; 18:16 Follow up: Response: No adverse reaction; IV Status: Infusion continued upon admission; kc6 IV Intake: 500ml 14:30 Drug: Acetaminophen Suppository 650 mg Route: ND; kc6 15:30 Follow up: Response: No adverse reaction; Temperature is decreased kc6 Disposition: 10:41 PA/COLOR CHECKER ROVING OR YARN's history reviewed, patient interviewed, and examined. HPI: 77-year-old male with ms3 past medical history of coronary artery disease presents via [facility] for shortness of breath. On EMS arrival patient was found to be in A-fib with RVR and hypotensive. Patient was also noted to be hypoxic. Patient was given 400 mL of lactated Ringer's in route to the hospital with improvement in vital signs. Patient was also administered metoprolol with improvement of heart rate. My personal exam of patient reveals: On exam patient appears ill, in mild distress, cachectic. Heart rate is tachycardic and regular. Lungs clear to auscultation bilaterally. Abdomen nontender to palpation with bowel sounds present. I agree with assessment and care plan and confirm the diagnosis (es) above. Disposition Summary: 12/11/22 14:27 Hospitalization Ordered Hospitalization Status: Inpatient Admission jm Provider: Anselmo Caldwell Condition: Critical jmm Problem: new jmm Symptoms: have improved jm Bed/Room Type: Standard [facility] Location: Intensive Care Unit(12/12/22 22:19) Room Assignment: 1-(12/12/22 22:19) Diagnosis - Community-acquired pneumonia jmm - Severe sepsis with septic shock jmm - Atrial fibrillation with RVR ashley Forms: - Medication Reconciliation Form jmm - SBAR form jm Signatures: Dispatcher [employer] EDLilian Ignacio Martha, RN RN Herbert Gross PA PA jmm Garcia, Cindy, RN RN Wero Flores RN RN jl7 Hossein Rowe DO DO ms3 Farida Griffin RN RN kc6 Keren Michelle PAJeri PAJeri doe4 Tessy Kiran RN vg1 Corrections: (The following items were deleted from the chart) 16:41 14:[address] [facility] jl7 16:41 14:27 [facility] jl7 21:19 16:41 RUST ER HOLD jl7 cg 21:19 16:41 ERHOLD- jl7 22:38 21:19 Intensive Care Unit [facility] 22:38 21:19 7- cg 12/12 22:19 0208 22:38 RUST ER HOLD [facility] 12/12 22:19 12/11 22:38 ERHOLD- cg
[2022-12-11] MEDS ORDERED: ACETAMINOPHEN 325 MG TABLET PO PRN (14:55)
[2022-12-11] MEDS ORDERED: ONDANSETRON 4 MG/2 ML VIAL IV PRN (15:09)
[2022-12-11] MEDS ORDERED: ACETAMINOPHEN 650MG/RECT SUPP PR PRN (15:35)
--- NOTE | 2022-12-11 15:37 | P.HP ---
Certification for Inpatient Patient admitted to: Inpatient With expected LOS: >2 Midnights Patient will require the following post-hospital care: None Practitioner: I am a practitioner with admitting privileges, knowledge of patient current condition, hospital course, and medical plan of care. Services: Services provided to patient in accordance with Admission requirements found in Title 42 Section 412.3 of the Code of Federal Regulations Patient History Date of Service: 12/11/22 Reason for admission: Shortness of breath, altered mental status. History of Present Illness: Patient is a 77-year-old male with a past medical history significant for COPD, CAD, CABG, gastric ulcer, stage I lung cancer who presents with complaint of altered mental status and SOB. Patient alert and oriented x1, confused and unable to provide any history. Patient's son reported that his mother called him that patient has been sitting up in the chair for the past 4 days, has not been responding to verbal commands and has not been moving around. Patient also noted to be having difficulty breathing. Family also reported that patient has not been eating much. Patient's legs were noted to be edematous. Patient noted to be weak and fatigued on examination. No other signs and symptoms reported. Symptoms are aggravated or relieved by nothing. Family called EMS who brought patient to the hospital for medical evaluation Allergies albuterol Allergy (Verified 12/11/22 11:47) Anaphylaxis gabapentin Allergy (Verified 12/11/22 11:47) Itching - Past Medical/Surgical History -: COPD -: CAD -: Lung Cancer -: CABG - Family History Family History: Reviewed- Non-Contributory - Social History Smoking Status: Former smoker Alcohol use: No CD- Drugs: No Caffeine use: Yes Place of Residence: Home Review of Systems is unable to be obtained (Unable to assess. Patient confused.) Physical Examination - Physical Exam General: Alert, Oriented x1, Mild distress, Confused HEENT: Atraumatic, PERRLA, EOMI, Sclerae nonicteric Neck: Supple, 2+ carotid pulse no bruit, No LAD, Without JVD or thyroid abnormality Respiratory: Diminished Cardiovascular: Edema, Irregular heart rate/rhythm Capillary refill: <2 Seconds Gastrointestinal: Normal bowel sounds, Soft and benign, No tenderness Musculoskeletal: No clubbing, No tenderness Integumentary: No rashes, No breakdown, No significant lesion Neurological: Normal tone, Normal affect Lymphatics: No axilla or inguinal lymphadenopathy - Studies Laboratory Data (last 24 hrs) 12/11/22 09:57: PT 15.8 H, INR 1.44, APTT 28.1 12/11/22 09:04: Sodium 140, Potassium 4.6, BUN 139 H, Creatinine 4.36 H, Glucose 143 H, Total Bilirubin 2.6 H, AST 89 H, ALT 37, Alkaline Phosphatase 53 12/11/22 09:04: WBC 16.20 H, Hgb 15.8, Hct 47.5, Plt Count 151 L Assessment and Plan - Plan --Acute respiratory failure with hypoxia. Likely secondary to COPD exacerbation and pneumonia. Blood cultures pending. Pulmonology consulted. Patient on BiPAP therapy. Patient placed on antibiotics and steroids. Will await further recommendation from construction manager. --Severe sepsis with septic shock. Likely secondary to pneumonia/UTI. Sepsis protocol implemented in the ER. Patient placed on antibiotics and Levophed in the ER. Continue supportive care. --UTI POA. Continue antibiotics. Urine cultures pending. -- Atrial fibrillation with RVR. Cardiology consulted. Continue amiodarone and heparin drip. Telemetry to monitor for any significant arrhythmia. Echocardiogram pending. Further management per maintenance team leader. --Acute on chronic COPD exacerbation. Continue current treatment regimen. --Lung cancer. Family reported the patient on chemotherapy with outpatient oncologist. Continue supportive care. --History of CAD with CABG. Continue aspirin when appropriate. --History of gastric ulcer. Patient placed on Protonix. --Leukocytosis. Likely secondary to pneumonia\UTI. Blood and urine cultures pending. Continue antibiotics. --Elevated troponin. Serial troponins trending down. Echocardiogram pending to assess cardiac structures and functions. Telemetry to monitor for any significa nt arrhythmia. Further management per maintenance team leader --Elevated BNP. Echocardiogram pending. Continue supportive care. --DVT prophylaxis with heparin subQ Discharge Plan: Home Plan to discharge in: Greater than 2 days - Advance Directives Does patient have a Living Will: No Does patient have a Durable POA for Healthcare: No - Code Status/Comfort Care Code Status Assessed: Yes Physician Review: Patient Assessed, Agree with Above Assessment and Plan Critical Care: Yes
[2022-12-11] MEDS: AZITHROMYCIN IV 500 MG in NA CHLORIDE 0.9% 250 ML IVPB SCH (16:00)
[2022-12-11] MEDS ORDERED: IPRATROPIUM BROM 0.5MG/2.5ML NEB SCH (16:00)
[2022-12-11] MEDS ORDERED: ENOXAPARIN 30 MG/0.3 ML SQ SCH (16:00)
[2022-12-11] MEDS ORDERED: IPRATROPIUM BROM 0.5MG/2.5ML ONE (16:16)
[2022-12-11] MEDS ORDERED: AZITHROMYCIN 500 MG INJ IVPB ONE (16:26)
[2022-12-11] MEDS ORDERED: NA CHLORIDE 0.9% 250 ML ONE (16:26)
[2022-12-11] MEDS ORDERED: D5W IV SCH (16:30)
[2022-12-11] MEDS ORDERED: NOREPINEPHRINE BITARTRATE IV SCH (16:30)
[2022-12-11 16:47] LABS: Magnesium 2.5 mg/dL (1.6-2.4); Phosphorus 5.2 mg/dL (2.5-4.9); Thyroid Stimulating Hormone 1.48 uIU/mL (0.358-3.740)
[2022-12-11] MEDS ORDERED: SODIUM CHLORIDE 0.9% 10ML INJ IV PRN (16:57)
[2022-12-11] MEDS: D5 0.9 NS 1,000 ML IV SCH (17:00)
[2022-12-11] MEDS ORDERED: NA CHLORIDE 0.9% 1,000 ML IV ONE (17:51)
[2022-12-11] MEDS ORDERED: D5 0.9 NS 0 ML IV ONE (17:54)
[2022-12-11] MEDS ORDERED: NA CHLORIDE 0.9% 1,000 ML ONE (17:54)
[2022-12-11] MEDS ORDERED: D5 0.9 NS 1,000 ML IV ONE (17:58)
[2022-12-11] MEDS: PANTOPRAZOLE 40 MG INJ IVP SCH (18:00)
[2022-12-11] MEDS ORDERED: PANTOPRAZOLE 40 MG INJ ONE (18:44)
[2022-12-11 19:30] LABS: Arterial Blood Carboxyhemoglob 0.4 % (0-1.5); Blood Gas Oxyhemoglobin 84.9 % (94-97); Blood O2 Saturation 86.6 % (92-98.5)
[2022-12-11] MEDS ORDERED: ALBUTEROL 2.5 MG/3 ML NEB SOL NEB SCH (20:00)
[2022-12-11] MEDS: HEPARIN/D5W 25,000 UNIT/500 ML BAG IV PRN (20:17)
[2022-12-12] MEDS: D5 0.9 NS 1,000 ML IV SCH ×3 (02:15→17:00)
[2022-12-12] MEDS ORDERED: D5 0.9 NS 1,000 ML IV ONE ×2 (02:20→12:42)
[2022-12-12 04:35] LABS: Absolute Lymphocytes (CBC) 0.7 K/uL (0.7-4.9); Hematocrit 41.2 % (39.6-49.0); Lymphocytes % 7.9 % (15.3-44.8); MCV 92.6 fL (80-100); MPV 8.7 fL (7.6-11.3); RBC Red Blood Cell Count 4.45 M/uL (4.33-5.43)
--- NOTE | 2022-12-12 07:57 | EKG ---
Test Date: 2022-12-11 Test Time: 08:53:07 Ic Design Engineer: PREMA MEASUREMENT RESULTS: Intervals: Rate: 130 OK: QRSD: 110 QT: 306 QTc: 450 [place]: P: OK: QRS: -64 T: 85 INTERPRETIVE STATEMENTS: Atrial fibrillation with rapid ventricular response Left axis deviation Low voltage QRS Incomplete right bundle branch block Possible Inferior infarct, age undetermined Cannot rule out Anterior infarct, age undetermined Abnormal ECG No previous ECG available for comparison Electronically Signed On 12-12-22 07:54:48 FIRE PROTECTION DESIGNER by Rafiq Jean Baptiste
[2022-12-12] MEDS: PANTOPRAZOLE 40 MG INJ IVP SCH (09:00)
[2022-12-12] MEDS: AZITHROMYCIN IV 500 MG in NA CHLORIDE 0.9% 250 ML IVPB SCH (09:00)
[2022-12-12] MEDS: ASPIRIN 81 MG CHEWABLE TABLET PO SCH (09:00)
[2022-12-12] MEDS: CEFTRIAXONE 1,000 MG in NA CHLORIDE 0.9% 50 ML IVPB SCH (09:00)
[2022-12-12] MEDS ORDERED: NA CHLORIDE 0.9% 1,000 ML IV ONE ×2 (10:10→13:17)
[2022-12-12] MEDS ORDERED: PANTOPRAZOLE 40 MG INJ ONE (10:17)
[2022-12-12] MEDS ORDERED: AZITHROMYCIN 500 MG INJ IVPB ONE (10:17)
[2022-12-12] MEDS ORDERED: NA CHLORIDE 0.9% 50 ML ONE (10:17)
[2022-12-12] MEDS ORDERED: NA CHLORIDE 0.9% 0 ML ONE (10:17)
[2022-12-12] MEDS ORDERED: CEFTRIAXONE 1000 MG/VIAL ONE (10:17)
[2022-12-12] MEDS ORDERED: NA CHLORIDE 0.9% 1,000 ML ONE (13:19)
[2022-12-12] MEDS ORDERED: HEPARIN/D5W 25,000 UNIT/500 ML BAG IV ONE (13:52)
--- NOTE | 2022-12-12 15:58 | P.PN ---
Subjective Date of Service: 12/12/22 Chief Complaint: Shortness of breath, altered mental status. Patient is more awake and interactive today. He is still hypotensive requiring pressors. Heart rate is controlled on amiodarone drip. No recorded fever. Patient was on BiPAP yesterday, transition to high flow oxygen today. Physical Examination - Vital Signs Temperature: 97.5 F Blood Pressure: 103/63 Pulse: 92 Respirations: 31 Pulse Ox (%): 100 Assessment And Plan - Current Problems (Diagnosis) (1) Metabolic encephalopathy Current Visit: Yes Status: Acute (2) Septic shock Current Visit: Yes Status: Acute (3) Acute renal failure Current Visit: Yes Status: Acute (4) Atrial fibrillation Current Visit: Yes Status: Acute (5) Elevated troponin Current Visit: Yes Status: Acute (6) UTI (urinary tract infection) Current Visit: Yes Status: Acute - Plan Physical Exam General: Alert, Oriented x2, NAD HEENT: Atraumatic, PERRLA, EOMI, Sclerae nonicteric Neck: Supple, no elevated JVD. Respiratory: Clear to auscultation bilaterally, diminished breath sounds bilaterally. Cardiovascular: Edema, Irregular heart rate/rhythm Capillary refill: <2 Seconds Gastrointestinal: Normal bowel sounds, Soft and benign, No tenderness Musculoskeletal: No clubbing, No tenderness Integumentary: Stage I decubitus ulcer-b/l gluteal area Neurological: No focal motor deficit. Plan: Septic shock/UTI/pneumonia/metabolic encephalopathy Patient failed bedside swallow evaluation. Aspiration pneumonia is possible. Change IV antibiotics to IV Zosyn and Levaquin to cover anaerobes. Blood cultures-no growth to date. Follow urine culture. Leukocytosis resolved. Normal saline boluses as needed. Aggressive IV hydration, albumin IV infusion prn for persistent hypotension. Currently on vasopressin-phenylephrine. Echocardiogram Acute renal failure Likely prerenal BUN is markedly elevated. Serum creatinine is trending down with IV hydration. Monitor urine output. Nephrology consult. CT abdomen and pelvis reviewed-no hydronephrosis. Atrial fibrillation/elevated troponin Elevated troponin likely due to demand ischemia. Troponin trended flat. New onset atrial fibrillation. Patient started on amiodarone drip in the ED. continue amiodarone drip Continue heparin drip Echocardiogram Cardiology consulted. Dysphagia Suspect secondary to dementia. Speech therapy consult. Acute respiratory failure with hypoxia Patient weaned off BiPAP yesterday. Patient now on 10 L oxygen by nasal cannula. Continue to wean oxygen as tolerated.
[2022-12-12] MEDS ORDERED: D5W 1,000 ML IV ONE (21:14)
[2022-12-13] MEDS ORDERED: Phenylephrine HCl 10 MG/ML 1 ML VIAL ONE ×2 (01:07→01:43)
[2022-12-13] MEDS ORDERED: NA CHLORIDE 0.9% 0 ML ONE (01:44)
[2022-12-13] MEDS ORDERED: D5W 250 ML IV ONE (01:46)
[2022-12-13 04:42] LABS: Absolute Lymphocytes (CBC) 0.6 K/uL (0.7-4.9); Hematocrit 38.1 % (39.6-49.0); Lymphocytes % 6.9 % (15.3-44.8); MPV 8.6 fL (7.6-11.3); RBC Red Blood Cell Count 4.15 M/uL (4.33-5.43)
[2022-12-13 05:11] LABS: Albumin 1.8 g/dL (3.4-5.0); Bilirubin Total 1.2 mg/dL (0.2-1.0); Potassium 3.7 mmol/L (3.5-5.1)
--- NOTE | 2022-12-13 06:31 | ECHO ---
HEIGHT: 5 ft 10 in WEIGHT: 157 lb 10.088 oz DATE OF STUDY: 12/12/[address]: Juanita Barger 2-DIMENSIONAL: YES M.MODE: YES DOPPLER: YES COLOR FLOW: YES TDS: PORTABLE: YES DEFINITY: BUBBLE STUDY: DIAGNOSIS: ATRIAL FIBRILLATION, ELEVATED BMP, RULE OUT CONGESTIVE HEART FAILURE CARDIAC HISTORY: CATHERIZATION: YES SURGERY: YES PROSTHETIC VALVE: NO PACEMAKER: NO MEASUREMENTS (cm) DIASTOLIC (NORMALS) SYSTOLIC (NORMALS) IVSd 1.2 (0.6-1.2) LA Diam 3.5 (1.9-4.0) LVEF 55-60% LVIDd 4.6 (3.5-5.7) LVIDs 3.7 (2.0-3.5) %FS 19% LVPWd 1.2 (0.6-1.2) Ao Diam 2.9 (2.0-3.7) 2 DIMENSIONAL ASSESSMENT: RIGHT ATRIUM: NORMAL LEFT ATRIUM: NORMAL RIGHT VENTRICLE: NORMAL LEFT VENTRICLE: NORMAL TRICUSPID VALVE: MILD TRICUSPID REGURGITATION MITRAL VALVE: MILD MITRAL REGURGITATION PULMONIC VALVE: MILD PULMONIC INSUFFICIENCY AORTIC VALVE: NORMAL PERICARDIAL EFFUSION: NONE AORTIC ROOT: NORMAL LEFT VENTRICULAR WALL MOTION: ATRIAL FIBRILLATION (NORMAL WALL MOTION) DOPPLER/COLOR FLOW: SEE BELOW COMMENTS: 1. NORMAL LEFT VENTRICULAR EJECTION FRACTION 50-60% WITH ATRIAL FIBRILLATION 2. NORMAL WALL MOTION 3. MILD MITRAL REGURGITATION, TRICUSPID REGURGITATION, PULMONIC INSUFFICIENCY TECHNOLOGIST: DEANNA LANDON
[2022-12-13] MEDS ORDERED: Ringers Lactate 1,000 ML IV SCH (07:00)
[2022-12-13] MEDS: ASPIRIN 81 MG CHEWABLE TABLET PO SCH (07:11)
[2022-12-13] MEDS: CEFTRIAXONE 1,000 MG in NA CHLORIDE 0.9% 50 ML IVPB SCH (07:22)
[2022-12-13] MEDS: AZITHROMYCIN IV 500 MG in NA CHLORIDE 0.9% 250 ML IVPB SCH (07:24)
[2022-12-13] MEDS: PANTOPRAZOLE 40 MG INJ IVP SCH (07:24)
--- NOTE | 2022-12-13 07:37 | RAD REPORT ---
EXAM DESCRIPTION: Bisi Single View12/13/2022 6:57 am CLINICAL HISTORY: Chest pain COMPARISON: December 11, 2022 FINDINGS: Small left pleural effusion with left basilar opacity which may represent pneumonia or ate lectasis unchanged Right lung appears clear. Heart is mildly enlarged. Postsurgical changes involve the chest. Aorta is tortuous/ectatic IMPRESSION: No significant change since the prior exam
[2022-12-13] MEDS: Ringers Lactate 1,000 ML IV SCH ×2 (10:16→19:41)
--- NOTE | 2022-12-13 10:45 | P.PN ---
Subjective Date of Service: 12/13/22 Chief Complaint: Shortness of breath, altered mental status. Patient is awake, slightly confused, oriented times He is still hypotensive requiring pressors. Heart rate is controlled on amiodarone drip. No recorded fever. He is now tolerating 2.5 L oxygen by nasal cannula. Physical Examination - Vital Signs Temperature: 97.4 F Blood Pressure: 100/63 Pulse: 89 Respirations: 31 Pulse Ox (%): 98 - Studies Microbiology Data (last 24 hrs): 12/11/22 13:06 Catheterized Urine [place] Count - Final No growth. 12/11/22 13:06 Catheterized Urine - Final No growth. 12/11/22 09:57 Blood - Blood Gram Stain - Final Assessment And Plan - Current Problems (Diagnosis) (1) Metabolic encephalopathy Current Visit: Yes Status: Acute (2) Septic shock Current Visit: Yes Status: Acute (3) Acute renal failure Current Visit: Yes Status: Acute (4) Atrial fibrillation Current Visit: Yes Status: Acute (5) Elevated troponin Current Visit: Yes Status: Acute (6) UTI (urinary tract infection) Current Visit: Yes Status: Acute - Plan Physical Exam General: Alert, Oriented x2, NAD HEENT: Atraumatic, PERRLA, EOMI, Sclerae nonicteric Neck: Supple, no elevated JVD. Respiratory: Clear to auscultation bilaterally, diminished breath sounds bilaterally. Cardiovascular: Edema, Irregular heart rate/rhythm Capillary refill: <2 Seconds Gastrointestinal: Normal bowel sounds, Soft and benign, No tenderness Musculoskeletal: No clubbing, No tenderness Integumentary: Stage I decubitus ulcer-b/l gluteal area Neurological: No focal motor deficit. Plan: Septic shock/UTI/pneumonia/metabolic encephalopathy Patient failed bedside swallow evaluation. Aspiration pneumonia is possible. Continue IV Zosyn and Levaquin. 1 out of 4 blood culture bottles growing gram-positive cocci in clusters. Urine culture: No growth Leukocytosis resolved. Repeat blood cultures. Continue IV hydration and wean off vasopressors as needed Echocardiogram shows normal EF. Acute renal failure Likely prerenal BUN and serum creatinine trended down significantly and responding well to IV hy dration Monitor urine output. Nephrology consulted CT abdomen and pelvis reviewed-no hydronephrosis. Atrial fibrillation/elevated troponin Elevated troponin likely due to demand ischemia. Troponin trended flat. New onset atrial fibrillation. Patient started on amiodarone drip in the ED. continue amiodarone drip Continue heparin drip Echocardiogram unremarkable Cardiology consulted. Dysphagia Suspect secondary to dementia. Speech therapy consult. Acute respiratory failure with hypoxia Patient weaned off BiPAP yesterday. Patient now on 2.5 L oxygen by nasal cannula Continue to wean oxygen as tolerated. Increase activity as tolerated. PT and OT consult. Patient may be a candidate for acute rehab.
--- NOTE | 2022-12-13 13:17 | P.CNS ---
Date of Consult: 12/13/22 Reason for Consult: Abnormal chest x-ray Chief Complaint: Shortness of breath, altered mental status. History of Present Illness: Patient is 77 years of age at the bedside very poor historian apparently he is declined in the past 4 days not eating and drinking came in with altered mental status/history of lung cancer COPD coronary artery disease patient's been complaining of discomfort in his left arm he is alert and cooperative CT scan was abnormal Allergies albuterol Allergy (Verified 12/11/22 11:47) Anaphylaxis barium sulfate Allergy (Verified 12/13/22 10:57) Anaphylaxis gabapentin Allergy (Verified 12/11/22 11:47) Itching - Past Medical/Surgical History -: COPD -: CAD -: Lung Cancer Past Surgical History: Unable to obtain -: CABG - Social History Smoking Status: Unknown if ever smoked Alcohol use: No CD- Drugs: No Caffeine use: Yes Place of Residence: Home Review of Systems General: Weakness Respiratory: Shortness of Breath Musculoskeletal: Arm Pain Physical Examination Temp Pulse Resp BP Pulse Ox 97.4 F 89 31 H 100/63 98 12/13/22 10:47 12/13/22 10:47 12/13/22 10:47 12/13/22 10:47 12/13/22 10:47 General: Alert, Oriented x1, Cooperative Respiratory: Clear to auscultation bilaterally, Diminished Cardiovascular: No edema, Regular rate/rhythm, Normal S1 S2 Gastrointestinal: Normal bowel sounds, Soft and benign Musculoskeletal: No clubbing, No contractures - Problems (1) Altered mental status Current Visit: Yes Status: Acute Plan: Patient is 77 years of age has multiple medical problems declined in the past 4 days not eating and drinking came in with renal failure appears to be acute most likely prerenal appears to have patient was also hypoxic had some acidosis White count mildly elevated CT scan shows left lower lobe consolidation or atelectasis he has some radiation therapy for lung cancer also has atrial fibrillation and atrial flutter blood cultures are so far negative DC IV levofloxacin patient is also on Levophed bolus Qualifiers: Altered mental status type: unspecified Qualified Code(s): R41.82 - Altered mental status, unspecified (2) Hypotension Current Visit: Yes Status: Acute Plan: Patient has renal failure I suspect volume depletion fluid boluses wean off vasopressors CT of the abdomen did not show any urinary tract obstruction is probably volume depleted wean off vasopressors possible non-STEMI
[2022-12-13] MEDS ORDERED: Levofloxacin 750mg IV 750 MG/150 ML BAG IV SCH (14:00)
--- NOTE | 2022-12-13 14:04 | P.CNS ---
Date of Consult: 12/13/22 Reason for Consult: Hypernatremia Requesting Physician: lucrecia zeng Chief Complaint: Shortness of breath, altered mental status. History of Present Illness: 77M w/ PMHx of with a past medical history of CKD2, COPD, CAD, CABG, gastric ulcer, & stage I lung cancer who p/w AMS & SOB found to have septic shock, UTI, acute respiratory failure, pneumonia, new onset atrial fibrillation, RADHA, and hypernatremia. He has dysphagia. He is currently receiving IV fluids, antibiotics, heparin drip, amiodarone, LR drip, and phenylephrine drip. Serum Na is 150 currently. Allergies albuterol Allergy (Verified 12/11/22 11:47) Anaphylaxis barium sulfate Allergy (Verified 12/13/22 10:57) Anaphylaxis gabapentin Allergy (Verified 12/11/22 11:47) Itching Home Medications: Aspirin Chewable [Aspirin Chewable*] 1 tab PO DAILY 12/13/22 Atorvastatin Calcium 40 mg PO BEDTIME 12/13/22 Carboxymethylcellulose Sodium [Artificial Tears] 15 ml OP QID 12/13/22 Cyanocobalamin (Vitamin B-12) [Cyanocobalamin Injection] 1 ml IM SEECOM 12/13/22 Folic Acid 1 mg PO DAILY 12/13/22 Galantamine HBr [Galantamine ER] 16 mg PO DAILY 12/13/22 Montelukast Sodium 10 mg PO BEDTIME 12/13/22 Nitroglycerin 0.4 mg SL PRN 12/13/22 Omeprazole 20 mg PO DAILY 12/13/22 Tamsulosin [Flomax] 0.4 mg PO BEDTIME 12/13/22 - Past Medical/Surgical History -: COPD -: CAD -: Lung Cancer -: CABG - Social History Smoking Status: Unknown if ever smoked Alcohol use: No CD- Drugs: No Caffeine use: Yes Place of Residence: Home Review of Systems is unable to be obtained (d/t AMS) Physical Examination Temp Pulse Resp BP Pulse Ox 97.4 F 85 27 H 93/67 95 12/13/22 10:47 12/13/22 13:00 12/13/22 13:00 12/13/22 13:00 12/13/22 13:00 General: Other (chronically ill-appearing) HEENT: Atraumatic, Normocephalic Neck: Supple, JVD not distended Respiratory: Other (symmetric chest expansion) Cardiovascular: No rubs, No murmurs Gastrointestinal: Soft and benign, No guarding Musculoskeletal: No clubbing Integumentary: No warmth Neurological: Other (no focal deficits) Lymphatics: No axilla or inguinal lymphadenopathy Urinary: Other (no bladder distention) External genitalia: Deferred Rectal: Deferred Conclusions/Impression: # Hypernatremia Serum sodium 143 yesterday, increased to 150 today Weight 71.3 kg, total body water 35.6 L Free water deficit 2.5 L plus ongoing losses Continue LR gtt at 100 cc/hr. Recheck lytes now. If serum sodium continues to rise, switch IV fluid to D5W at 100 cc/hr x 24 hours. Give high-dose IV thiamine 500 mg IV 1 now Keep IV carrier fluids via D5W, not NS # RADHA 2/2 prerenal state + ATN/sepsis SCr improved to 1.7 Urinalysis showed proetinuria, hematuria, pyuria KUB on CT showed no obstrxn Cont IV hydration, abx # R renal cyst CT showed a 6 cm R renal cyst Recheck via a renal US in 6 mos # Septic shock 2/2 UTI/pneumonia On phenylephrine gtt, titrate to MAP > 65 On abx UCx no growth TTE w/ normal LVEF F/u repeat BCx # Acute respi failure 2/2 pneumonia On O2 support via NC On abx # Metabolic encephalopathy ? Underlying dementia Per other services # Dysphagia Cont IV fluids Per other services # Atrial fibrillation, new onset +Trop On amio gtt + heparin gtt TTE unremarkable Per Cardiology
[2022-12-13] MEDS: HEPARIN/D5W 25,000 UNIT/500 ML BAG IV PRN (14:49)
[2022-12-13] MEDS ORDERED: Ringers Lactate 500 ML IV ONE (15:12)
[2022-12-13] MEDS ORDERED: THIAMINE 200 MG/2 ML INJ IVP ONE (16:10)
[2022-12-13] MEDS: PIPER TAZO 3.375 GM in NA CHLORIDE 0.9% 100 ML IV SCH (16:35)
[2022-12-13 17:31] LABS: Magnesium 2.4 mg/dL (1.6-2.4); Phosphorus 1.8 mg/dL (2.5-4.9); Potassium 3.7 mmol/L (3.5-5.1)
[2022-12-13] MEDS: AMIODARONE HCL 200 MG TAB PO SCH ×2 (20:37→21:00)
[2022-12-13] MEDS ORDERED: HALOPERIDOL LACT 5 MG/ML INJ IV PRN (21:38)
[2022-12-14] MEDS: PIPER TAZO 3.375 GM in NA CHLORIDE 0.9% 100 ML IV SCH ×3 (00:33→17:20)
[2022-12-14] MEDS: Ringers Lactate 1,000 ML IV SCH (03:54)
[2022-12-14 05:21] LABS: Absolute Lymphocytes (CBC) 0.6 K/uL (0.7-4.9); Hematocrit 39.8 % (39.6-49.0); Lymphocytes % 5.9 % (15.3-44.8); MCV 92.8 fL (80-100); MPV 8.2 fL (7.6-11.3); RBC Red Blood Cell Count 4.29 M/uL (4.33-5.43)
[2022-12-14 05:55] VITALS: BMI 22.5
[2022-12-14 05:55] LABS: Albumin 1.7 g/dL (3.4-5.0); Bilirubin Total 1.5 mg/dL (0.2-1.0); Potassium 3.7 mmol/L (3.5-5.1); Protein, Total 4.9 g/dL (6.4-8.2)
[2022-12-14] MEDS: D5W 1,000 ML IV SCH ×2 (07:34→17:40)
[2022-12-14 07:35] LABS: Magnesium 2.4 mg/dL (1.6-2.4); Phosphorus 1.9 mg/dL (2.5-4.9)
[2022-12-14 07:46] LABS: Blood Morphology Comment NOT SEEN (NOT SEEN); Platelet Estimate ADEQ
[2022-12-14] MEDS: ASPIRIN 81 MG CHEWABLE TABLET PO SCH (08:23)
[2022-12-14] MEDS: AMIODARONE HCL 200 MG TAB PO SCH ×2 (08:23→20:15)
[2022-12-14] MEDS: PANTOPRAZOLE 40 MG INJ IVP SCH (08:23)
[2022-12-14] MEDS ORDERED: POTASSIUM 25 MEQ EFFERV TAB PO ONE (09:00)
[2022-12-14] MEDS ORDERED: dexAMETHasone 4 MG/ML VIAL IV ONE (11:02)
--- NOTE | 2022-12-14 11:05 | P.PN ---
Subjective Date of Service: 12/14/22 Chief Complaint: Shortness of breath, altered mental status. Subjective: Improving (Improving doing well still hypotensive) Review of Systems General: Weakness Respiratory: Shortness of Breath Physical Examination - Vital Signs Temperature: 96.9 F Blood Pressure: 98/58 Pulse: 85 Respirations: 19 Pulse Ox (%): 90 - Physical Exam General: Alert, Cooperative Respiratory: Clear to auscultation bilaterally, Diminished Cardiovascular: No edema, Regular rate/rhythm - Studies Microbiology Data (last 24 hrs): 12/11/22 09:57 Blood - Blood Gram Stain - Final 12/11/22 13:06 Catheterized Urine [place] Count - Final No growth. 12/11/22 13:06 Catheterized Urine - Final No growth. Assessment And Plan - Current Problems (Diagnosis) (1) Altered mental status Current Visit: Yes Status: Acute Plan: Patient admitted with altered mental status has baseline dementia features are so far negative renal function is improving still hyponatremic hypochloremic D5 water Qualifiers: Altered mental status type: unspecified Qualified Code(s): R41.82 - Altered mental status, unspecified (2) Hypotension Current Visit: Yes Status: Acute Plan: Hypotensive trial of Decadron x1 serum cortisol level fluid bolus patient is still on vasopressors coagulase-negative isolated the blood per most likely contaminant Qualifiers: Hypotension type: unspecified hypotension type Qualified Code(s): I95.9 - Hypotension, unspecified Physician Review: Patient Assessed, Agree with Above Assessment and Plan
[2022-12-14] MEDS ORDERED: Ringers Lactate 500 ML IV ONE (12:04)
--- NOTE | 2022-12-14 12:51 | P.PN ---
Subjective Date of Service: 12/14/22 Chief Complaint: Shortness of breath, altered mental status. Patient is awake and doing much better He is still hypotensive on pressors. Heart rate is controlled on amiodarone drip. No recorded fever. He was seen eating by himself. Physical Examination - Vital Signs Temperature: 96.9 F Blood Pressure: 98/58 Pulse: 85 Respirations: 19 Pulse Ox (%): 90 - Studies Microbiology Data (last 24 hrs): 12/11/22 09:57 Blood - Blood Gram Stain - Final 12/11/22 13:06 Catheterized Urine [place] Count - Final No growth. 12/11/22 13:06 Catheterized Urine - Final No growth. Assessment And Plan - Current Problems (Diagnosis) (1) Metabolic encephalopathy Current Visit: Yes Status: Acute (2) Septic shock Current Visit: Yes Status: Acute (3) Acute renal failure Current Visit: Yes Status: Acute (4) Atrial fibrillation Current Visit: Yes Status: Acute (5) Elevated troponin Current Visit: Yes Status: Acute (6) UTI (urinary tract infection) Current Visit: Yes Status: Acute - Plan Physical Exam General: Alert, Oriented x2, NAD HEENT: Atraumatic, PERRLA, EOMI, Sclerae nonicteric Neck: Supple, no elevated JVD. Respiratory: Clear to auscultation bilaterally, diminished breath sounds bilaterally. Cardiovascular: Edema, Irregular heart rate/rhythm Capillary refill: <2 Seconds Gastrointestinal: Normal bowel sounds, Soft and benign, No tenderness Musculoskeletal: No clubbing, No tenderness Integumentary: Stage I decubitus ulcer-b/l gluteal area Neurological: No focal motor deficit. Plan: Septic shock/UTI/pneumonia/metabolic encephalopathy Patient failed bedside swallow evaluation. Aspiration pneumonia is possible. Continue IV Zosyn and Levaquin. 1 out of 4 blood culture bottles growing coagulase-negative staph. This is likely a skin contaminant. Urine culture: No growth Leukocytosis resolved. Follow repeat blood cultures. Continue IV hydration and wean off vasopressors as needed Echocardiogram shows normal EF. Acute renal failure/hypernatremia Likely prerenal BUN and serum creatinine continue to trend down with hydration. Monitor urine output. Nephrology input appreciated. Continue Ringer's lactate Atrial fibrillation/elevated troponin Elevated troponin likely due to demand ischemia. Troponin trended flat. New onset atrial fibrillation. Patient started on amiodarone drip in the ED. continue amiodarone drip Continue heparin drip Echocardiogram unremarkable Cardiology consulted. Dysphagia Suspect secondary to dementia. Speech therapy seen patient and placed on pureed diet Acute respiratory failure with hypoxia Patient weaned off BiPAP yesterday. Patient now on 2.5 L oxygen by nasal cannula Continue to wean oxygen as tolerated. Increase activity as tolerated. PT and OT consult. Patient is being evaluated for acute rehab. Physician Review: Patient Assessed, Agree with Above Assessment and Plan
--- NOTE | 2022-12-14 17:23 | P.PN ---
Subjective Date of Service: 12/14/22 Chief Complaint: Shortness of breath, altered mental status. Today Pt with septic shock , DM , CAD , admitted for septic shock today NA 151, fluid changed to D5w cont to require levophed , will add midodrine Physical exam General: awake, looks chronically ill HEENT PERRLA, moist mucose membrane neck: supple, no elevated JVD CHEST; CTAB, no wheezes or rales HEART : RRR. Normal S1,2 no murmur or rub Abd: soft, Nt, taylor catheter Ext: no edema Skin : No rash # Hypernatremia Cont D5w avoid NS based fluid # RADHA 2/2 prerenal state + ATN/sepsis SCr improved to 1.4 Urinalysis showed proetinuria, hematuria, pyuria KUB on CT showed no obstrxn Cont IV hydration, abx # R renal cyst CT showed a 6 cm R renal cyst Recheck via a renal US in 6 mos # Septic shock 2/2 UTI/pneumonia On phenylephrine gtt, titrate to MAP > 65 On abx UCx no growth TTE w/ normal LVEF on levophed , will add midodrine # Acute respi failure 2/2 pneumonia On O2 support via NC On abx # Dysphagia Cont IV fluids Per other services # Atrial fibrillation, new onset +Trop rate controlled TTE unremarkable Per Cardiology Physical Examination - Vital Signs Temperature: 97.3 F Blood Pressure: 129/76 Pulse: 79 Respirations: 20 Pulse Ox (%): 98 - Studies Microbiology Data (last 24 hrs): 12/11/22 09:57 Blood - Blood Gram Stain - Final Assessment And Plan Physician Review: Patient Assessed, Agree with Above Assessment and Plan
[2022-12-14] MEDS: MIDODRINE HCL 5 MG TABLET PO SCH (20:15)
[2022-12-15] MEDS: PIPER TAZO 3.375 GM in NA CHLORIDE 0.9% 100 ML IV SCH ×3 (00:16→16:24)
[2022-12-15] MEDS: D5W 1,000 ML IV SCH (03:35)
[2022-12-15 05:22] LABS: Absolute Lymphocytes (CBC) 0.6 K/uL (0.7-4.9); Hematocrit 37.5 % (39.6-49.0); Lymphocytes % 5.4 % (15.3-44.8); MCV 92.3 fL (80-100); MPV 8.3 fL (7.6-11.3); RBC Red Blood Cell Count 4.06 M/uL (4.33-5.43)
[2022-12-15 05:31] LABS: Albumin 1.8 g/dL (3.4-5.0)
[2022-12-15] MEDS: MIDODRINE HCL 5 MG TABLET PO SCH ×3 (08:17→21:38)
[2022-12-15] MEDS: AMIODARONE HCL 200 MG TAB PO SCH ×2 (08:17→21:39)
[2022-12-15] MEDS: PANTOPRAZOLE 40 MG INJ IVP SCH (08:17)
[2022-12-15] MEDS: ASPIRIN 81 MG CHEWABLE TABLET PO SCH (08:17)
--- NOTE | 2022-12-15 11:37 | P.PN ---
Subjective Date of Service: 12/15/22 Chief Complaint: Shortness of breath, altered mental status. Patient much more awake and alert. He denies any complaint. He is off pressors. No recorded fever. He was seen eating by himself. Physical Examination - Vital Signs Temperature: 97.2 F Blood Pressure: 105/59 Pulse: 101 Respirations: 26 Pulse Ox (%): 93 - Studies Microbiology Data (last 24 hrs): 12/11/22 09:57 Blood - Blood Gram Stain - Final Assessment And Plan - Current Problems (Diagnosis) (1) Metabolic encephalopathy Current Visit: Yes Status: Acute (2) Septic shock Current Visit: Yes Status: Acute (3) Acute renal failure Current Visit: Yes Status: Acute (4) Atrial fibrillation Current Visit: Yes Status: Acute (5) Elevated troponin Current Visit: Yes Status: Acute (6) UTI (urinary tract infection) Current Visit: Yes Status: Acute - Plan Physical Exam General: Alert, Oriented x3, NAD Neck: Supple, no elevated JVD. Respiratory: Clear to auscultation bilaterally, diminished breath sounds bilaterally. Cardiovascular: Edema, Irregular heart rate/rhythm Capillary refill: <2 Seconds Gastrointestinal: Normal bowel sounds, Soft and benign, No tenderness Musculoskeletal: No clubbing, No tenderness Integumentary: Stage I decubitus ulcer-b/l gluteal area Neurological: No focal motor deficit. Plan: Septic shock/UTI/pneumonia/metabolic encephalopathy Patient failed bedside swallow evaluation. Aspiration pneumonia is possible. Continue IV Zosyn and Levaquin. 1 out of 4 blood culture bottles growing coagulase-negative staph. This is likely a skin contaminant. Urine culture: No growth Leukocytosis resolved. Continue IV hydration. Patient is off pressors. Blood pressure readings are stable. Echocardiogram shows normal EF. Acute renal failure/hypernatremia Likely prerenal RADHA resolved Nephrology is following. Continue Ringer's lactate Atrial fibrillation/elevated troponin Elevated troponin likely due to demand ischemia. Troponin trended flat. New onset atrial fibrillation. Transition to oral amiodarone. Change heparin drip to Lovenox. Echocardiogram unremarkable Cardiology consulted. Dysphagia Suspect secondary to dementia. Speech therapy seen patient and placed on pureed diet Acute respiratory failure with hypoxia Patient weaned off BiPAP yesterday. Oxygen weaned down to 1 L by nasal cannula. Continue to wean oxygen as tolerated. Increase activity as tolerated. PT and OT consult. Patient is being evaluated for acute rehab.
--- NOTE | 2022-12-15 12:51 | P.PN ---
Subjective Date of Service: 12/15/22 Chief Complaint: Shortness of breath, altered mental status. Today Pt with septic shock , DM , CAD , admitted for septic shock today no nausea, vomiting or diarrhea NA improved to 145 Off passers, cont midodrine for now Physical exam General: awake, looks chronically ill HEENT PERRLA, moist mucose membrane neck: supple, no elevated JVD CHEST; CTAB, no wheezes or rales HEART : RRR. Normal S1,2 no murmur or rub Abd: soft, Nt, taylor catheter Ext: no edema Skin : No rash # Hypernatremia Cont D5w avoid NS based fluid # RADHA 2/2 prerenal state + ATN/sepsis SCr improved to 1.4 Urinalysis showed proetinuria, hematuria, pyuria KUB on CT showed no obstrxn Cont IV hydration, abx # R renal cyst CT showed a 6 cm R renal cyst Recheck via a renal US in 6 mos # Septic shock 2/2 UTI/pneumonia On phenylephrine gtt, titrate to MAP > 65 On abx UCx no growth TTE w/ normal LVEF off levophed , Cont midodrine # Gram positive bacteremia F/U repeated cultures # Acute respi failure 2/2 pneumonia On O2 support via NC On abx # Dysphagia Cont IV fluids Per other services # Atrial fibrillation, new onset +Trop rate controlled TTE unremarkable Per Cardiology Physical Examination - Vital Signs Temperature: 97.2 F Blood Pressure: 105/59 Pulse: 101 Respirations: 26 Pulse Ox (%): 93 - Studies Microbiology Data (last 24 hrs): 12/11/22 09:57 Blood - Blood Gram Stain - Final Assessment And Plan Physician Review: Patient Assessed, Agree with Above Assessment and Plan
[2022-12-15] MEDS: ENOXAPARIN 80 MG/0.8 ML SQ SCH (21:39)
[2022-12-16] MEDS: PIPER TAZO 3.375 GM in NA CHLORIDE 0.9% 100 ML IV SCH ×3 (00:29→16:21)
[2022-12-16 06:19] LABS: Albumin 1.8 g/dL (3.4-5.0); Phosphorus 2.6 mg/dL (2.5-4.9)
[2022-12-16 06:25] LABS: Potassium 4.3 mmol/L (3.5-5.1)
[2022-12-16] MEDS: ENOXAPARIN 80 MG/0.8 ML SQ SCH (08:40)
[2022-12-16] MEDS: ASPIRIN 81 MG CHEWABLE TABLET PO SCH (08:41)
[2022-12-16] MEDS: AMIODARONE HCL 200 MG TAB PO SCH ×2 (08:41→21:05)
[2022-12-16] MEDS: MIDODRINE HCL 5 MG TABLET PO SCH ×3 (08:41→21:05)
[2022-12-16] MEDS: PANTOPRAZOLE 40 MG INJ IVP SCH (08:42)
--- NOTE | 2022-12-16 16:22 | P.PN ---
Subjective Date of Service: 12/16/22 Chief Complaint: Shortness of breath, altered mental status. Patient is awake and alert. He was telling me he refused Lovenox subcutaneous injections because he does not want to get bruised. He denies any complaint. He is off pressors. He is able to feed himself. Physical Examination - Vital Signs Temperature: 97.2 F Blood Pressure: 106/62 Pulse: 85 Respirations: 18 Pulse Ox (%): 93 - Studies Microbiology Data (last 24 hrs): 12/11/22 10:30 Blood - Blood Aerobic Blood Culture - Final No growth in 5 days. 12/11/22 10:30 Blood - Blood Anaerobic Blood Culture - Final No growth in 5 days. 12/11/22 09:57 Blood - Blood Aerobic Blood Culture - Final Staph Epidermidis 12/11/22 09:57 Blood - Blood Anaerobic Blood Culture - Final Staph Epidermidis 12/11/22 09:57 Blood - Blood Gram Stain - Final Assessment And Plan - Current Problems (Diagnosis) (1) Metabolic encephalopathy Current Visit: Yes Status: Acute (2) Septic shock Current Visit: Yes Status: Acute (3) Acute renal failure Current Visit: Yes Status: Acute (4) Atrial fibrillation Current Visit: Yes Status: Acute (5) Elevated troponin Current Visit: Yes Status: Acute (6) UTI (urinary tract infection) Current Visit: Yes Status: Acute - Plan Physical Exam General: Alert, Oriented x3, NAD Neck: Supple, no elevated JVD. Respiratory: Clear to auscultation bilaterally, diminished breath sounds bilaterally. Cardiovascular: Edema, Irregular heart rate/rhythm Capillary refill: <2 Seconds Gastrointestinal: Normal bowel sounds, Soft and benign, No tenderness Musculoskeletal: No clubbing, No tenderness Integumentary: Stage I decubitus ulcer-b/l gluteal area Neurological: No focal motor deficit. Plan: Septic shock/UTI/pneumonia/metabolic encephalopathy Patient failed bedside swallow evaluation. Aspiration pneumonia is possible. Continue IV Zosyn and Levaquin. 2 out of 4 blood culture bottles growing Staph epidermidis. This is likely a skin contaminant. We will seek infectious disease opinion. UA suggested UTI, urine culture: No growth. Chest x-ray suggested atelectasis versus pneumonia Leukocytosis resolved. Patient is eating well. IV fluid discontinued. Patient is off pressors. Blood pressure readings are stable. Echocardiogram shows normal EF. Currently on IV Zosyn. Acute renal failure/hypernatremia Likely prerenal Nephrology followed patient. RADHA and hypernatremia resolved. IV fluid discontinued. Atrial fibrillation/elevated troponin Elevated troponin likely due to demand ischemia. Troponin trended flat. New onset atrial fibrillation. Patient was initiated on amiodarone drip which w as later transitioned to oral amiodarone per cardiology recommendation. Initially on heparin drip, then changed to Lovenox. Patient is now refusing subcutaneous Lovenox shots. Lovenox changed to Eliquis today. Echocardiogram unremarkable Dysphagia Suspect secondary to dementia. Speech therapy seen patient and placed on pureed diet Acute respiratory failure with hypoxia Status post BiPAP and then weaned to oxygen by nasal cannula. Patient now tolerating room air with good oxygen saturation. Increase activity as tolerated. PT and OT consult. Patient accepted to inpatient rehab.
--- NOTE | 2022-12-16 16:31 | P.DS ---
Admission Date: 12/11/22 Discharge Date: 12/16/22 Disposition: TRANSFER TO INPATIENT REHAB Discharge Condition: FAIR Reason for Admission: Shortness of breath, altered mental status. - Problems (1) Metabolic encephalopathy Current Visit: Yes Status: Acute (2) Septic shock Current Visit: Yes Status: Acute (3) Acute renal failure Current Visit: Yes Status: Acute (4) Atrial fibrillation Current Visit: Yes Status: Acute (5) Elevated troponin Current Visit: Yes Status: Acute (6) UTI (urinary tract infection) Current Visit: Yes Status: Acute Brief History of Present Illness: Patient is a 77-year-old male with a past medical history significant for COPD, CAD, CABG, gastric ulcer, stage I lung cancer who presented with complaint of altered mental status and SOB. Patient alert and oriented x1, confused and unable to provide any history. Patient's son reported that his mother called him that patient has been sitting up in the chair for 4 days, has not been responding to verbal commands and has not been moving around. Patient also noted to be having difficulty breathing. Family also reported that patient was not been eating much. Patient's legs were noted to be edematous. Patient noted to be weak and fatigued on examination. He was unresponsive during examination in the ED. He developed hypotension. Blood work showed leukocytosis and significant bands. Sepsis protocol was initiated and patient treated with IV fluid resuscitation and placed on pressors. Patient was admitted for further management. Hospital Course: Patient admitted to the ICU and the following medical problems addressed: Septic shock/UTI/pneumonia/metabolic encephalopathy Patient failed bedside swallow evaluation. Aspiration pneumonia is possible. He was treated with IV Zosyn and Levaquin. 2 out of 4 blood culture bottles growing Staph epidermidis. These are likely a skin contaminant. UA suggested UTI, urine culture: No growth. Chest x-ray suggested atelectasis versus pneumonia Leukocytosis resolved with antibiotic treatment. Blood pressure improved patient was weaned off pressors. He was later put on midodrine per nephrology. Patient is eating well. IV fluid discontinued. Blood pressure readings are stable. Echocardiogram shows normal EF. Discharged with Augmentin to continue treatment for possible aspiration pneumonia. Acute renal failure/hypernatremia Likely prerenal Nephrology followed patient. RADHA and hypernatremia resolved with IV fluid. Atrial fibrillation/elevated troponin Elevated troponin likely due to demand ischemia. Troponin trended flat. New onset atrial fibrillation. Patient was started on amiodarone drip which was later transitioned to oral amiodarone per cardiology recommendation. Initially on heparin drip, then changed to Lovenox. Patient refused subcutaneous Lovenox shots. Lovenox changed to Eliquis. Echocardiogram unremarkable Dysphagia Suspect secondary to dementia. Speech therapy saw patient and placed him on pureed diet Acute respiratory failure with hypoxia Status post BiPAP and then weaned to oxygen by nasal cannula. Patient now tolerating room air with good oxygen saturation. PT and OT evaluated patient. Patient accepted to inpatient rehab. Vitals are stable for transfer. Vital Signs/Physical Exam: Temp Pulse Resp BP Pulse Ox 97.2 F 85 18 106/62 93 12/16/22 16:23 12/16/22 16:23 12/16/22 16:23 12/16/22 16:23 12/16/22 16:23 General: Alert, In no apparent distress HEENT: Mucous membr. moist/pink Neck: JVD not distended Respiratory: Clear to auscultation bilaterally, Normal air movement Cardiovascular: No edema, Normal S1 S2, Irregular heart rate/rhythm Gastrointestinal: Normal bowel sounds, Soft and benign, Non-distended, No tenderness Musculoskeletal: No swelling Integumentary: No cyanosis Neurological: Other (No focal motor deficit) Laboratory Data at Discharge: WBC 10.70 K/uL (4.3-10.9) 12/15/22 05:05 Hgb 12.6 g/dL (13.6-17.9) L 12/15/22 05:05 Hct 37.5 % (39.6-49.0) L 12/15/22 05:05 Plt Count 170 K/uL (152-406) 12/15/22 05:05 PT 15.8 SECONDS (9.5-12.5) H 12/11/22 09:57 INR 1.44 12/11/22 09:57 APTT 42.2 SECONDS (24.3-36.9) H 12/13/22 15:02 Sodium 144 mmol/L (136-145) 12/16/22 05:35 Potassium 4.3 mmol/L (3.5-5.1) 12/16/22 05:35 BUN 35 mg/dL (7-18) H 12/16/22 05:35 Creatinine 0.97 mg/dL (0.70-1.30) 12/16/22 05:35 Glucose 91 mg/dL (74-106) 12/16/22 05:35 Phosphorus 2.6 mg/dL (2.5-4.9) 12/16/22 05:35 Magnesium 2.4 mg/dL (1.6-2.4) 12/14/22 04:45 Total Bilirubin Cancelled 12/14/22 Unknown AST Cancelled 12/14/22 Unknown ALT Cancelled 12/14/22 Unknown Alkaline Phosphatase Cancelled 12/14/22 Unknown Home Medications: Aspirin Chewable [Aspirin Chewable*] 1 tab PO DAILY 12/13/22 Atorvastatin Calcium 40 mg PO BEDTIME 12/13/22 Carboxymethylcellulose Sodium [Artificial Tears] 15 ml OP QID 12/13/22 Cyanocobalamin (Vitamin B-12) [Cyanocobalamin Injection] 1 ml IM SEECOM 12/13/22 Folic Acid 1 mg PO DAILY 12/13/22 Galantamine HBr [Galantamine ER] 16 mg PO DAILY 12/13/22 Montelukast Sodium 10 mg PO BEDTIME 12/13/22 Omeprazole 20 mg PO DAILY 12/13/22 Tamsulosin [Flomax*] 0.4 mg PO BEDTIME 12/13/22 Amiodarone HCl [Cordarone*] 200 mg PO BID tab 12/16/22 Aspirin Chewable [Aspirin Chewable*] 81 mg PO DAILY tab.chew 12/16/22 Midodrine HCl [Proamatine*] 10 mg PO TID tab 12/16/22 Diet: AHA Followup: NONE,NONE [Primary Care Provider] -
[2022-12-16] MEDS: APIXABAN 5 MG TABLET PO SCH (21:05)
[2022-12-16] MEDS ORDERED: ACETAMINOPHEN 325 MG TABLET PO PRN (21:09)
[2022-12-17] MEDS: PIPER TAZO 3.375 GM in NA CHLORIDE 0.9% 100 ML IV SCH ×3 (00:40→17:00)
--- NOTE | 2022-12-17 05:53 | CON ---
Date of Consultation: 12/16/2022 Reason For Consultation: Elevated troponin. History Of Present Illness: This is a 77-year-old male who was brought into the emergency room with shortness of breath and altered mental status. He has history of COPD; coronary artery disease, stat us post CABG in the past; gastric ulcer, stage I lung cancer, came in short of breath with altered me ntal status. Apparently, he was found on the floor or in his bed laying there for long time for abou t 4 days, confused, and on evaluation in the Emergency Room, he was on acute renal failure and tropon in was elevated, but also he was in rhabdomyolysis. After proper hydration, BUN and creatinine have improved and troponin has improved, and the patient denies having any chest pain, however, he is very poor historian. Past Medical History: As outlined above in the HPI. Medications: Refer reconciliation sheet for detailed list. Allergies: HE IS ALLERGIC TO ALBUTEROL, BARIUM SULFATE, AND GABAPENTIN. Family History: No premature coronary disease or cancer. Social History: He is an ex-smoker, does not drink or use any drugs. Review of Systems: All systems reviewed and they were negative except what is mentioned in the HPI. Physical Examination: Vital Signs: Reviewed. Head and Neck: Pupils are equal, reactive to light. Intact eye movements. No JVD. No cervical lym phadenopathy. Neck is supple. Thyroid is not enlarged. Lungs: Decreased breathing sounds bilaterally. No accessory muscle use or muscle retraction. Heart: Regular rate and rhythm. No extra sounds. Abdomen: Soft, nontender. Bowel sounds positive. No organomegaly. No masses or hernia. No rigidi ty or rebound. Extremities: No clubbing or cyanosis. Intact pulses. Skin: No rash. Neurologic: Alert and awake, oriented x3, no acute focal deficits appreciated. Investigations: Troponin peaked at 580 and trending down, CK at one point was 2761 and his creatinin e improved from 4.36 to 0.97. Assessment/recommendation: 1.Elevated troponin, this is likely due to rhabdomyolysis, however, the patient with risk factors, I recommended to obtain a Lexiscan nuclear stress test and an echocardiogram. 2.Acute renal failure due to rhabdomyolysis. This is resolved. 3.Electrolyte imbalance that caused probably the confusion, altered mental status, and this is signi ficantly improved. SR/MODL Voice ID: [id number] Report ID: [id number]
[2022-12-17 06:25] LABS: Phosphorus 3.1 mg/dL (2.5-4.9)
--- NOTE | 2022-12-17 07:23 | PN ---
Date of Progress Note: 12/16/2022 Chief Complaint: Acute kidney injury, severe. Subjective: The patient was found to have creatinine level of over 4 when he came to the hospital. He developed shortness of breath, altered mental status. He was admitted because of sepsis. He was treated for septic shock. He has underlying diabetes mellitus, coronary artery disease. The patient denies chest pain, palpitation. The patient had urinalysis evaluated which showed proteinuria, guilherme turia, and pyuria. KUB and CT scan showed no obstructive uropathy. The patient was started on IV fl uids for hypernatremia and volume depletion. The patient is on midodrine for blood pressure support. Review of Systems: Denies fever or chills. Physical Examination: Lungs: Clear to auscultation bilaterally. Heart: S1, S2. Abdomen: Soft. Extremities: No edema. No skin rash. Impression And Plan: 1.Acute kidney injury secondary to prerenal state and acute tubular necrosis in setting of sepsis. The patient will continue midodrine for blood pressure support. 2.Serum creatinine level has improved. Renal function has improved and the acute kidney injury is r esolving. The patient does not have evidence of obstructive uropathy, although urinalysis showed hem aturia. The patient will require further workup with Urology for microscopic hematuria. The patient will continue antibiotics for UTI and pneumonia, complicated by septic shock. Currently, the patien t is off Levophed. TTE showed normal ejection fraction. 3.Sepsis. Monitor urine culture and urine blood culture. The patient was found to have gram-positi ve bacteremia. 4.Acute respiratory failure with pneumonia. Continue antibiotics. 5.Atrial fibrillation, new onset. The troponin level was elevated. Cardiology is following. SELVIN/MODL Voice ID: [id number] Report ID: [id number]
[2022-12-17] MEDS ORDERED: REGADENOSON 0.4 MG/5 ML SYR IV ONE (07:27)
--- NOTE | 2022-12-17 08:34 | P.CNS ---
Date of Consult: 12/17/22 Chief Complaint: Shortness of breath, altered mental status. History of Present Illness: Patient is a 77-year-old male with a past medical history significant for COPD, CAD, CABG, gastric ulcer, stage I lung cancer who presents with complaint of altered mental status and SOB. Patient alert and oriented x1, confused and unable to provide any history. Patient's son reported that his mother called him that patient has been sitting up in the chair for the past 4 days, has not been responding to verbal commands and has not been moving around. Patient also noted to be having difficulty breathing. Family also reported that patient has not been eating much. Patient's legs were noted to be edematous. Patient noted to be weak and fatigued on examination. No other signs and symptoms reported. Symptoms are aggravated or relieved by nothing. Family called EMS who brought patient to the hospital for medical evaluation On 12/11 BC: Positive with Staph epidermidis in 2 bottles. ID has been consulted for antibiotics recommendations and management Allergies albuterol Allergy (Verified 12/11/22 11:47) Anaphylaxis barium sulfate Allergy (Verified 12/13/22 10:57) Anaphylaxis gabapentin Allergy (Verified 12/11/22 11:47) Itching Home Medications: Aspirin Chewable [Aspirin Chewable*] 1 tab PO DAILY 12/13/22 Atorvastatin Calcium 40 mg PO BEDTIME 12/13/22 Carboxymethylcellulose Sodium [Artificial Tears] 15 ml OP QID 12/13/22 Cyanocobalamin (Vitamin B-12) [Cyanocobalamin Injection] 1 ml IM SEECOM 12/13/22 Folic Acid 1 mg PO DAILY 12/13/22 Galantamine HBr [Galantamine ER] 16 mg PO DAILY 12/13/22 Montelukast Sodium 10 mg PO BEDTIME 12/13/22 Omeprazole 20 mg PO DAILY 12/13/22 Tamsulosin [Flomax*] 0.4 mg PO BEDTIME 12/13/22 Amiodarone HCl [Cordarone*] 200 mg PO BID tab 12/16/22 Amox/Clavulanate [Augmentin 875-125 Tab] 1 each PO BID #16 tab 12/16/22 Apixaban [Eliquis] 5 mg PO BID 12/16/22 Aspirin Chewable [Aspirin Chewable*] 81 mg PO DAILY tab.chew 12/16/22 Midodrine HCl [Proamatine*] 10 mg PO TID tab 12/16/22 - Past Medical/Surgical History -: COPD -: CAD -: Lung Cancer -: CABG - Social History Smoking Status: Unknown if ever smoked Alcohol use: No CD- Drugs: No Caffeine use: Yes Place of Residence: Home Review of Systems 10-point ROS is otherwise unremarkable Physical Examination Temp Pulse Resp BP Pulse Ox 96.9 F 60 17 125/77 91 12/17/22 05:00 12/17/22 05:00 12/17/22 05:00 12/17/22 05:00 12/17/22 05:00 General: Alert, In no apparent distress, Oriented x3 Respiratory: Clear to auscultation bilaterally Cardiovascular: No edema, Normal S1 S2 Gastrointestinal: Normal bowel sounds Musculoskeletal: No swelling, No tenderness Integumentary: No rashes, No breakdown Neurological: Normal speech, Normal tone, Normal affect Current medications Acetaminophen (Acetaminophen 650mg/Rect Supp) 650 mg OR Q6H PRN PRN Reason: TEMP > 100.4' F Acetaminophen (Acetaminophen 325 Mg Tablet) 650 mg PO Q6H PRN PRN Reason: Pain scale 2-4 (Mild) Last Admin: 12/16/22 22:04 Dose: 650 mg Amiodarone HCl (Amiodarone Hcl 200 Mg Tab) 200 mg PO BID [facility] Last Admin: 12/16/22 21:05 Dose: 200 mg Apixaban (Apixaban 5 Mg Tablet) 5 mg PO BID [facility] Last Admin: 12/16/22 21:05 Dose: 5 mg Aspirin (Aspirin 81 Mg Chewable Tablet) 81 mg PO DAILY [facility] Last Admin: 12/16/22 08:41 Dose: 81 mg Piperacillin Sod/Tazobactam (Sod 3.375 gm/ Sodium Chloride) 100 mls @ 25 mls/hr IV Q8HR [facility] Last Admin: 12/17/22 00:40 Dose: 100 mls Midodrine (Midodrine Hcl 5 Mg Tablet) 10 mg PO TID [facility] Last Admin: 12/16/22 21:05 Dose: 10 mg Pantoprazole Sodium (Pantoprazole 40 Mg Inj) 40 mg IVP DAILY [facility]; Protocol Last Admin: 12/16/22 08:42 Dose: 40 mg Sodium Chloride (Flush Normal Saline 10 Ml) 10 ml IV BID [facility] Last Admin: 12/16/22 21:05 Dose: 10 ml Sodium Chloride (Sodium Chloride 0.9% 10ml Inj) 10 ml IV UD PRN PRN Reason: Diluant Microbiology 12/11/22 10:30 Blood - Blood Aerobic Blood Culture - Final No growth in 5 days. 12/11/22 10:30 Blood - Blood Anaerobic Blood Culture - Final No growth in 5 days. 12/11/22 09:57 Blood - Blood Aerobic Blood Culture - Final Staph Epidermidis 12/11/22 09:57 Blood - Blood Anaerobic Blood Culture - Final Staph Epidermidis 12/11/22 09:57 Blood - Blood Gram Stain - Final 12/11/22 13:06 Catheterized Urine Colo Count - Final No growth. 12/11/22 13:06 Catheterized Urine - Final No growth. Imagings Data: RAD - Chest Single View - 12/11/2022 FINDINGS: Portable technique limits examination quality. The lungs are emphysematous but grossly clear. The heart is normal in size. No displaced fractures.Sternotomy wires. IMPRESSION: COPD. CT - Head Brain Wo Cont - 12/11/2022 FINDINGS: No intracranial hemorrhage, hydrocephalus or extra-axial fluid collection.Mild generalized brain atrophy is present with mild periventricular and deep white matter chronic microvascular ischemic changes.No areas of brain edema or evidence of midline shift. Small amount of fluid in both maxillary antra. The calvarium is intact. IMPRESSION: No acute intracranial abnormality. CT - Chest Abd Pelvis Wo Con - 12/11/2022 FINDINGS: Significant emphysema is present.There is a moderate sized area of consolidation in the medial left lung base.Trace right pleural effusion.No intrathoracic adenopathy. The liver, spleen, pancreas, adrenal glands and left kidney are within normal limits. 6 cm cyst right kidney. No bowel obstruction, free air, free fluid or abscess. Moderate retained stool in the rectum. No pathologic lymphadenopathy in the abdomen or pelvis. No worrisome osseous finding. IMPRESSION: Moderate consolidation medial left lung base may represent pneumonia . Recommend follow-up imaging until clearance. Fecal retention in the rectum. RADChest Single View12/13/2022 FINDINGS: Small left pleural effusion with left basilar opacity which may represent pneumonia or atelectasis unchanged Right lung appears clear. Heart is mildly enlarged. Postsurgical changes involve the chest. Aorta is tortuous/ectatic IMPRESSION: No significant change since the prior exam - Problems (1) Bacteremia Current Visit: Yes Status: Acute Plan: Cultures: - 12/15 BC: Negative - 12/14 Sputum: Normal quantity of upper respiratory shanna growth - 12/11 BC: Staph Epidermidis - 12/11 UC: Negative Antibiotics: - Current on IV Zosyn (12/13- ) Recommendations: - One more day of IV Zosyn - Can switch to PO Bactrim for total of 6 more days when patient is negative for having diarrhea - Have CBC and BMP twice weekly when patient on Bactrim Conclusions/Impression: - Bacteremia: Continue antibiotics - Metabolic encephalopathy - Septic shock - Acute renal failure - Atrial fibrillation - Elevated troponin - UTI (urinary tract infection) - COPD - CAD - Lung Cancer - CABG ID will monitor the patient closely for signs of infection with fever and WBC trends Case has been discussed with Dr. Barrett N Thank you Dr. White for consultation
[2022-12-17] MEDS: ASPIRIN 81 MG CHEWABLE TABLET PO SCH (13:23)
[2022-12-17] MEDS: AMIODARONE HCL 200 MG TAB PO SCH ×2 (13:24→21:14)
[2022-12-17] MEDS: MIDODRINE HCL 5 MG TABLET PO SCH ×3 (13:24→21:13)
[2022-12-17] MEDS: APIXABAN 5 MG TABLET PO SCH ×2 (13:24→21:13)
[2022-12-17] MEDS: PANTOPRAZOLE 40 MG INJ IVP SCH (13:25)
--- NOTE | 2022-12-17 13:46 | TREADPHA ---
DX: ELEVATED TROPONIN Date of Study: 12/17/2022 Ht: 5' 10 " Wt: 157 lb 3.2 oz Consulting Physician: KHUSHBU MEDICATIONS: TYLENOL, CORDARONE, ELIQUIS, ASPIRIN, PROMATINE, PROTONIX, OMEPRAZOLE, NITROGLYCERIN, ATORVASTATIN HISTORY: 77 YEAR OLD MALE WITH COMPLIANTS OF SHORTNESS OF BREATH. PATIENT HAS HISTORY OF CHRONIC OBSTRUCTIVE PULMONARY DISEASE, CORONARY ARTERY DISEASE, LUNG CANCER, CORONARY ARTERY BYPASS GRAFT PHYSICIAL EXAMINATION: RESTING B.P.: 121/72 RESTING H.R.: 68 RESTING EKG: ATRIAL FIBRILLATION PROTOCOL: PHARMACOLOGIC EXERCISE TIME: 3:30 B.P. AT PEAK STRESS: 105/61 IMPRESSION: LEXISCAN INJECTED. CARDIOLITE INJECTED - SEE NUCLEAR MEDICINE REPORT. NO SUPRAVENTRICULAR TACHYCARDIA, VENTRICULAR TACHYCARDIA, PREMATURE VENTRICULAR COMPLEXES NOTED. OCCASIONAL PREMATURE VENTRICULAR COMPLEXES. PATIENT DENIES CHEST PAIN. PATIENT STATES SOME SHORTNESS OF BREATH DURING PROCEDURE. PATIENT IN ATRIAL FIBRILLATION. NO ELECTROCARDIOGRAM CHANGES WITH LEXISCAN.
--- NOTE | 2022-12-17 14:33 | RAD REPORT ---
EXAM DESCRIPTION: NM - Rest Stress Cardiac Imaging - 12/17/2022 1:37 pm CLINICAL HISTORY: . Chest pain. COMPARISON: No comparisons TECHNIQUE: The patient was administered 9.8 mCi of Tc 99m Sestamibi prior to resting SPECT imaging o f the heart. The patient was then administered 28.2 mCi of Tc 99m Sestamibi following exercise or pha rmacologic stress. Multiplanar SPECT images were reviewed. FINDINGS: No stress induced ischemic defect is seen to suggest stress induced ischemia. Small fixed defects are seen along the anterior and inferolateral wall apical segments, suggestive of sequelae of remote infarcts. The end diastolic volume is 123 ml, the end systolic volume is 63 ml, and the ejection fraction is 49 %. IMPRESSION: No scintigraphic evidence of stress induced ischemia. Small fixed defect seen along the anterior and lateral wall apical segments suggestive of sequelae of remote infarcts. The left ventricular ejection fraction is at the lower limit of normal, 49%.
[2022-12-17 14:56] VITALS: O2SAT 93
--- NOTE | 2022-12-17 15:24 | PN ---
Date of Progress Note: 12/17/2022 Subjective: The patient was admitted with acute kidney injury secondary to poor perfusion ATN second lucio to sepsis. Kidney function has been improved. Patient planned for a stress test today. Physical Examination: Vital Signs: Blood pressure 105/66, pulse of 66, afebrile. Chest: Clear to auscultation. Heart: S1, S2. Regular. Abdomen: Soft, nontender. Extremity: Trace edema. Neurologic: Alert. No focality. Laboratory Data: Sodium 141, potassium 4, bicarb 30, BUN 31, creatinine 1.1. GFR of 69. Calcium 8. 1, phosphorus 3.1, hemoglobin 12.6. Current Medications: Include: 1.Zosyn. 2.Aspirin. 3.Amiodarone. 4.Eliquis. 5.Tylenol. 6.Pantoprazole. Assessment And Plan: 1.Acute kidney injury secondary to poor perfusion, acute tubular necrosis, recovered, resolved. Nor mal volume. We will continue to monitor. 2.Hypertension, controlled, optimal. Continue current treatment. 3.Hematuria. Follow up with Urology. 4.Atrial fibrillation with RVR, currently controlled. 5.Caw-[id number]-yjcywkdic myocardial infarction. Follow up stress test. JIN/ROSCOE Voice ID: [id number] Report ID: [id number]
--- NOTE | 2022-12-17 22:20 | P.PN ---
Date of Service: 12/17/22 Subjective: no acute events overnight feels continued improvement stress test today continues with some cough ROS: A complete review of systems was performed and is negative except as mentioned above Physical Exam: Gen: NAD, AOx3 HEENT: normal conjunctiva, sclera anicteric CV: afib, trace edema Pulm: non-labored respirations, b/l crackles Abd: soft, non-tender, non-distended Skin: no rashes, no lesions Neuro: normal speech, normal affect, moves all extremities vitals reviewed Problem List septic shock secondary to UTI / pneumonia acute respiratory failure with hypoxia; secondary to pneumonia Afib RADHA Hypernatrmia NSTEMI, demand ischemia Dysphagia Septic shock/UTI/pneumonia/metabolic encephalopathy Patient failed bedside swallow evaluation. Aspiration pneumonia is possible. treated with IV Zosyn and Levaquin. 2 out of 4 blood culture bottles growing Staph epidermidis. These are likely a skin contaminant. ID consulted UA suggested UTI, urine culture: No growth. Chest x-ray suggested atelectasis vs pneumonia Leukocytosis resolved with antibiotic treatment. Blood pressure improved patient was weaned off pressors. He was later put on midodrine per nephrology. Patient is eating well. Echocardiogram shows normal EF. Discharged with Augmentin to continue treatment for possible aspiration pneumonia. patient reports bad reaction / told not to take bactrim in past Acute renal failure/hypernatremia prerenal Nephrology followed patient. RADHA and hypernatremia resolved with IV fluid. Atrial fibrillation/elevated troponin Elevated troponin likely due to demand ischemia. Troponin trended flat. New onset atrial fibrillation. Patient was started on amiodarone drip which was later transitioned to oral amiodarone per cardiology recommendation. Initially on heparin drip, then changed to Lovenox. Patient refused subcutaneous Lovenox shots. Lovenox changed to Eliquis. Dysphagia Suspect secondary to dementia. Speech therapy saw patient and placed him on pureed diet Acute respiratory failure with hypoxia Status post BiPAP and then weaned to oxygen by nasal cannula. Patient now tolerating room air with good oxygen saturation. PT and OT evaluated patient. Patient accepted to inpatient rehab. anticipate dc to rehab tomorrow
[2022-12-18] MEDS: PIPER TAZO 3.375 GM in NA CHLORIDE 0.9% 100 ML IV SCH ×2 (00:27→08:39)
[2022-12-18 04:50] VITALS: BP 112/69; TEMP 97.1
[2022-12-18] MEDS: ASPIRIN 81 MG CHEWABLE TABLET PO SCH (08:38)
[2022-12-18] MEDS: MIDODRINE HCL 5 MG TABLET PO SCH (08:38)
[2022-12-18] MEDS: APIXABAN 5 MG TABLET PO SCH (08:38)
[2022-12-18] MEDS: PANTOPRAZOLE 40 MG INJ IVP SCH (08:38)
[2022-12-18] MEDS: AMIODARONE HCL 200 MG TAB PO SCH (08:38)
--- NOTE | 2022-12-18 08:59 | P.PN ---
Subjective Date of Service: 12/18/22 Chief Complaint: Shortness of breath, altered mental status. Patient was working with PT at the bedside. no cardiopulmonary distress upon examination Physical Examination - Vital Signs Temperature: 97.1 F Blood Pressure: 112/69 Pulse: 64 Respirations: 17 Pulse Ox (%): 95 - Physical Exam General: In no apparent distress, Oriented x3 Respiratory: Clear to auscultation bilaterally Cardiovascular: No edema, Normal S1 S2 Gastrointestinal: Normal bowel sounds Musculoskeletal: No swelling, No tenderness Integumentary: No rashes, No breakdown Neurological: Normal speech, Normal tone, Normal affect - Studies Current medications Acetaminophen (Acetaminophen 650mg/Rect Supp) 650 mg ID Q6H PRN PRN Reason: TEMP > 100.4' F Acetaminophen (Acetaminophen 325 Mg Tablet) 650 mg PO Q6H PRN PRN Reason: Pain scale 2-4 (Mild) Last Admin: 12/16/22 22:04 Dose: 650 mg Amiodarone HCl (Amiodarone Hcl 200 Mg Tab) 200 mg PO BID [facility] Last Admin: 12/18/22 08:38 Dose: 200 mg Apixaban (Apixaban 5 Mg Tablet) 5 mg PO BID [facility] Last Admin: 12/18/22 08:38 Dose: 5 mg Aspirin (Aspirin 81 Mg Chewable Tablet) 81 mg PO DAILY [facility] Last Admin: 12/18/22 08:38 Dose: 81 mg Piperacillin Sod/Tazobactam (Sod 3.375 gm/ Sodium Chloride) 100 mls @ 25 mls/hr IV Q8HR [facility] Last Admin: 12/18/22 08:39 Dose: 100 mls Midodrine (Midodrine Hcl 5 Mg Tablet) 10 mg PO TID [facility] Last Admin: 12/18/22 08:38 Dose: 10 mg Pantoprazole Sodium (Pantoprazole 40 Mg Inj) 40 mg IVP DAILY [facility]; Protocol Last Admin: 12/18/22 08:38 Dose: 40 mg Sodium Chloride (Flush Normal Saline 10 Ml) 10 ml IV BID [facility] Last Admin: 12/18/22 08:38 Dose: 10 ml Sodium Chloride (Sodium Chloride 0.9% 10ml Inj) 10 ml IV UD PRN PRN Reason: Diluant Microbiology Data (last 24 hrs): Microbiology 12/11/22 10:30 Blood - Blood Aerobic Blood Culture - Final No growth in 5 days. 12/11/22 10:30 Blood - Blood Anaerobic Blood Culture - Final No growth in 5 days. 12/11/22 09:57 Blood - Blood Aerobic Blood Culture - Final Staph Epidermidis 12/11/22 09:57 Blood - Blood Anaerobic Blood Culture - Final Staph Epidermidis 12/11/22 09:57 Blood - Blood Gram Stain - Final 12/11/22 13:06 Catheterized Urine Perry Count - Final No growth. 12/11/22 13:06 Catheterized Urine - Final No growth. Assessment And Plan - Current Problems (Diagnosis) (1) Bacteremia Status: Acute Plan: Cultures: - 12/15 BC: Negative - 12/14 Sputum: Normal quantity of upper respiratory shanna growth - 12/11 BC: Staph Epidermidis, susceptible to Oxacillin - 12/11 UC: Negative Antibiotics: - Current on IV Zosyn (12/13-12/17) Recommendations: - Agrees with primary team for the choice of PO Augmentin - Plan - Bacteremia: Continue antibiotics - Metabolic encephalopathy - Septic shock - Acute renal failure - Atrial fibrillation - Elevated troponin - UTI (urinary tract infection) - COPD - CAD - Lung Cancer - CABG ID will monitor the patient closely for signs of infection with fever and WBC trends Case has been discussed with Dr. Barrett N Physician Review: Patient Assessed, Agree with Above Assessment and Plan
== END 2022-12-18 10:08 | DRG 871 ==
LOC: ER 08:48 → ERHOLD 14:51 → 3RD-ICU 21:26 → ERHOLD 12-12 00:30 → 3RD-ICU 12-12 23:39 → 4TH 12-15 14:06
PROVIDERS: ADMIT Internal Medicine; ATTEND Hospitalist
PROC: 5A09457 Assistance with Respiratory Ventilation, 24-96 Consecutive Hours, Continuous Positive Airway Pressure (ICD-10-PCS; principal; 2022-12-11)
DX: A41.9 Sepsis, unspecified organism (principal); G93.41 Metabolic encephalopathy; R65.21 Severe sepsis with septic shock; J96.01 Acute respiratory failure with hypoxia; N17.0 Acute kidney failure with tubular necrosis; J69.0 Pneumonitis due to inhalation of food and vomit; I21.A1 Myocardial infarction type 2; N39.0 Urinary tract infection, site not specified; C34.90 Malignant neoplasm of unspecified part of unspecified bronchus or lung; J44.1 Chronic obstructive pulmonary disease with (acute) exacerbation; J44.0 Chronic obstructive pulmonary disease with (acute) lower respiratory infection; E87.20 Acidosis, unspecified; I48.92 Unspecified atrial flutter; E87.0 Hyperosmolality and hypernatremia; E87.1 Hypo-osmolality and hyponatremia; M62.82 Rhabdomyolysis; L89.151 Pressure ulcer of sacral region, stage 1; L89.311 Pressure ulcer of right buttock, stage 1; L89.891 Pressure ulcer of other site, stage 1; I48.91 Unspecified atrial fibrillation; N28.1 Cyst of kidney, acquired; E87.8 Other disorders of electrolyte and fluid balance, not elsewhere classified; E11.9 Type 2 diabetes mellitus without complications; I25.10 Atherosclerotic heart disease of native coronary artery without angina pectoris; F03.90 Unspecified dementia, unspecified severity, without behavioral disturbance, psychotic disturbance, mood disturbance, and anxiety; B95.7 Other staphylococcus as the cause of diseases classified elsewhere; R31.29 Other microscopic hematuria; Z88.8 Allergy status to other drugs, medicaments and biological substances; Z95.1 Presence of aortocoronary bypass graft; Z79.82 Long term (current) use of aspirin; Z79.899 Other long term (current) drug therapy; Z87.891 Personal history of nicotine dependence; Z20.822 Contact with and (suspected) exposure to COVID-19
CPT/HCPCS: 0240U; 36415; 70450; 71045; 71250; 74176; 78452; 80048; 80053; 80069; 81003; 81015; 82533; 82550; 82805; 82947; 83605; 83735; 83880; 84100; 84439; 84443; 84484; 85025; 85610; 85730; 86021; 87040; 87070; 87077; 87086; 87088; 87186; 87205; 92526; 92610; 93005; 93017; 93306; 94640; 94660; 97110; 97161; 97165; 97530; 99291; 99292; C9113; J0282; J0456; J0692; J1100; J1630; J1644; J1650; J2370; J2543; J2785; J3411; J7030; J7042; J7050; J7060; J7120; J7644

== ENCOUNTER 2022-12-17 07:51 | Inpatient (IN) | payer OTHER ==
[2022-12-18] MEDS ORDERED: CYANOCOBALAMIN 1000MCG/ML INJ IM SCH (11:00)
[2022-12-18] MEDS: POLYVINYL ALCOHOL 1.4% 15 ML EACH EYE SCH ×3 (13:00→19:48)
[2022-12-18] MEDS: MIDODRINE HCL 5 MG TABLET PO SCH ×2 (13:16→19:48)
[2022-12-18] MEDS ORDERED: DOCUSATE NA/SENNA CONC 1 TAB PO PRN (13:40)
[2022-12-18 14:58] VITALS: BMI 22.7
[2022-12-18 16:26] LABS: Specific Gravity 1.025 (1.005-1.030); Urine Bacteria None Seen /HPF (<20); Urine Bilirubin NEGATIVE (Negative); Urine Blood Trace (Negative); Urine Clarity Clear (Clear); Urine Color Yellow (Yellow); Urine Glucose NEGATIVE (Negative); Urine Mucus Slight /HPF (None Seen); Urine Protein TRACE (Negative); Urine RBC <5 /HPF (None Seen); Urine Urobilinogen Normal (Normal)
[2022-12-18] MEDS: AMIODARONE HCL 200 MG TAB PO SCH (19:48)
[2022-12-18] MEDS: AMOX/K CLAV 875 MG TAB PO SCH (19:48)
[2022-12-18] MEDS: TAMSULOSIN 0.4 MG SR CAP PO SCH (19:48)
[2022-12-18] MEDS: MONTELUKAST 10 MG TAB PO SCH (19:49)
[2022-12-18] MEDS: ATORVASTATIN 40 MG TAB PO SCH (19:49)
[2022-12-18] MEDS: APIXABAN 5 MG TABLET PO SCH (19:49)
[2022-12-19 04:32] LABS: Absolute Lymphocytes (CBC) 0.7 K/uL (0.7-4.9); Hematocrit 36.7 % (39.6-49.0); Lymphocytes % 8.3 % (15.3-44.8); MCV 91.5 fL (80-100); MPV 7.7 fL (7.6-11.3); RBC Red Blood Cell Count 4.01 M/uL (4.33-5.43)
[2022-12-19 04:51] LABS: Albumin 2.3 g/dL (3.4-5.0); Magnesium 1.8 mg/dL (1.6-2.4); Potassium 3.8 mmol/L (3.5-5.1); Prealbumin 9.5 mg/dL (20-40)
[2022-12-19] MEDS: PANTOPRAZOLE 40MG TABLET PO SCH (07:59)
[2022-12-19] MEDS: [UNRECOGNIZED DRUG - OTHER] PO SCH (08:00)
[2022-12-19] MEDS: GALANTAMINE 16 MG PO SCH (08:00)
[2022-12-19] MEDS: APIXABAN 5 MG TABLET PO SCH ×2 (08:49→20:41)
[2022-12-19] MEDS: AMIODARONE HCL 200 MG TAB PO SCH ×2 (08:50→20:41)
[2022-12-19] MEDS: FOLIC ACID 1 MG TABLET PO SCH (08:50)
[2022-12-19] MEDS: ASPIRIN EC 81 MG TAB PO SCH (08:50)
[2022-12-19] MEDS: MIDODRINE HCL 5 MG TABLET PO SCH ×3 (08:51→20:40)
[2022-12-19] MEDS: POLYVINYL ALCOHOL 1.4% 15 ML EACH EYE SCH ×3 (08:51→20:41)
[2022-12-19] MEDS: AMOX/K CLAV 875 MG TAB PO SCH ×2 (08:51→20:41)
[2022-12-19] MEDS: NIRMATRELVIR/RITONAVIR TABLET PO SCH ×2 (10:00→20:41)
--- NOTE | 2022-12-19 20:22 | HP ---
Date of Admission: 12/18/2022 [id number] Admission History And Physical Time Of Service: 9:30 a.m. Date of Servie: 12/19/22 Chief Complaint: Mild confusion, disorientation, and weakness in legs. History Of Present Illness: Mr. Kumar is a 77-year-old right-handed patient with chronic obstructive pulmonary disease, coronary artery disease, and stage I lung cancer who came to [facility] on the 11 of December with confusion and shortness of breath. He was only alert to self and for family. Reportedly he had been sitting in a chair for 4 days, unable to respond in a meaningful way to verbal commands and not ambulating or doing his usual activities. Also noted to have some difficulty breathing, problems with endurance and balance. He was not eating well also. He did have edema on the extremities, especially lower extremities. At [facility] he was found to be severely fatigued, weak, and was admitted initially to the ICU on the and diagnosed with metabolic encephalopathy due to the respiratory failure, hypoxia related to COPD exacerbation, and severe sepsis with septic shock secondary to pneumonia and urinary tract infection. In addition, he was found to have atrial fibrillation with rapid ventricular response and again the leukocytosis related to his pneumonia. He did receive BiPAP and did not require intubation while in ICU. He is able to take antibiotics in addition to steroids. He did have blood cultures and was maintained on monitoring. He was evaluated by Cardiology Service and echocardiogram was done. Pulmonary Service evaluated the patient. He was stabilized and eventually sent to the floor, but while there was noted to still be very debilitated, significantly weak and had begun to become now more oriented. As a result of the patient's complex medical condition and significant debility along with encephalopathy, he was determined to be a more appropriate candidate for inpatient rehabilitation and not lower level such as a skilled unit. Past Medical History: As noted above including COPD, coronary artery disease, coronary artery bypass grafting, stage I lung cancer and surgery as well. Family History: Noncontributory. Allergies: ALBUTEROL AND GABAPENTIN. Social History: Smoked in the past. No alcohol or IV drug use. The patient resides with family at home. Current Medications: Tylenol 650 mg every 6 hours as needed, Cordarone 200 mg twice daily, amoxicillin/clavulanic acid 875 mg twice daily, Eliquis 5 mg twice daily, Artificial Tears 2 drops in each eye 4 times daily, aspirin 81 mg daily, Lipitor 40 mg at bedtime, vitamin B12 1000 mcg subcutaneously monthly, folic acid 1 mg daily, midodrine 10 mg 3 times daily, Singulair 10 mg at bedtime, Protonix 40 mg daily, Senokot-S 2 at bedtime, and Flomax 0.4 mg at bedtime. Laboratory Studies: White blood cell count 8.6, hemoglobin 12.4, and platelets 230. PTT on the was 42.2. Blood gas shows on the , pH 7.39, pCO2 of 29.6, pO2 59.9. Chemistries: Sodium 141, potassium 3.8, chloride 108, carbon dioxide 30, BUN 21, and creatinine 1.03. His glucose ranged from 91 to 164. Calcium 8.0, magnesium 1.8. Prealbumin 9.5 and albumin 3.2. Urinalysis shows a trace of protein, trace of blood, otherwise negative. Antiproteinase 3 pending. Anti myeloperoxidase pending. He did have yesterday a COVID-19 test and that turned out to be positive by yesterday afternoon. He did have a negative test on the and on the now it is positive and he actually will be placed in isolation while on the rehabilitation unit. He will have therapy done in the room only and he will be given Paxlovid starting today. X-ray/imaging: A cardiac stress test showed atrial fibrillation. There is no supraventricular tachycardia. There was ventricular tachycardia and premature ventricular complexes noted. There were no electrographic changes with Lexiscan. Chest x-ray done on the shows small left pleural effusion and left basal opacity that may represent pneumonia or atelectasis. Postsurgical changes involving chest. Aorta is tortuous and ectatic. Review of Systems: Currently the patient denies significant shortness of breath. He is alert and oriented to person, place, and situation. He did follow commands well. He is being treated for pneumonia and is also now positive for COVID-19 and we will begin Paxlovid. He denies any nausea or vomiting, any rash, or any psychiatric issues. No active gastrointestinal or genitourinary issues. Current Level Of Functioning: Currently, he did mobilize a wheelchair 100 feet twice with verbal cues required. He did perform bilateral seated lower extremity exercises, 20 repetitions each. He did require maximum assistance for 2 sit to stand transfers with verbal cues. He did demonstrate inappropriate behavior reaching the right upper extremity around the therapist's lower waist while sitting. He did require extra time to perform transfers and ambulate due to likely apraxia. Rehabilitation Assessment And Plan: Mr. Kumar is a 77-year-old patient in the rehabilitation unit with metabolic encephalopathy due to infection and electrolyte derangement, which is improving in addition to having COVID-19. He has chronic obstructive pulmonary disease, coronary artery disease status post bypass grafting, and lung cancer. He has atrial fibrillation with rapid ventricular response. He did have a urinary tract infection as well. His rehabilitation impairment category is 03 brain dysfunction nontraumatic, and his impairment group code is 02.1 nontraumatic. His etiologic diagnoses metabolic encephalopathy, active comorbid, [id number] renal failure, atrial fibrillation, rapid ventricular response, dysphagia, hypernatremia, pneumonia, septic shock that is improving, urinary tract infection, and acute respiratory failure. Of note, risk of clinical complication include stroke, myocardial infarction, risk of injury, falls and bleeding, organ failure, skin breakdown, deep vein thrombosis. Plan: 1. He will have physical and occupational therapy along with speech therapy 3.5 hours, 5 of 7 days. 2. For pneumonia, he will continue antibiotics. For COVID, he will continue Paxlovid. For deep vein thrombosis risk reduction, continue on aspirin along with Eliquis. For the pneumonia, incentive spirometry will be done. Chest x- ray will be done. White blood cell count will be evaluated at intervals. Impact Of Comorbidities: Given the patient is now positive for COVID-19, he will be kept in isolation. Therapy will be done in room with donning and doffing of protective gear. He will be retested per protocol of the hospital and will be evaluated for additional treatment such as steroids if need be. Rehab Specific Plan: Again the patient will have 3.5 hours a 5 of 7 days for physical, occupational, and speech therapy to improve his gait, coordination, balance, strength, and endurance to improve his cognitive functioning, swallowing, to help him ambulate at least 500 feet with independence or modified independence to go up and down 15 steps with modified independence to independence. He has a good understanding of why he is admitted to the inpatient rehabilitation unit and sees the benefit of the interdisciplinary approach to the treatment that he will receive in the unit. He has the potential to make improvement and will need at least physical, occupational, and speech therapy. In addition, services may be required including the Respiratory Service, Nutrition Service, Wound Care, Psychiatric Service, and Cardiology Service as well. Given his complex medical condition and risk of further medical complications, the rehabilitation service cannot be effectively provided at a lower level of care such as a group home. Barriers To Discharge: At this point, his COVID positivity is a potential barrier. In addition he has sepsis, coronary artery disease, and pneumonia, but they are being addressed aggressively. Estimated Length Of Stay: Around 2 weeks. Disposition: Expected to be going home. Prognosis: Fair at this point. Rehabilitation Goals: 1. He should be able to breathe completely without the need for oxygen and go back home with full respiratory function. 2. To be able to cognitively be intact and have no evidence of any cognitive dysfunction. 3. To be able to do his activities of daily living independently. 4. Ambulate at least 500 feet with independence. 5. Up and down 15 steps with independence. I have personally performed a full physical examination on Mr. David Kumar within 12 hours of his admission to the rehabilitation unit and have determined that he is able to tolerate the above course of treatment at the intensive level as determined and in the time as identified. An individualized plan of care for him will be completed by hospital day 4 based on the preadmission screen, history and physical, and therapy evaluations. ASH Voice ID: [id number]
[2022-12-19] MEDS: ATORVASTATIN 40 MG TAB PO SCH (20:41)
[2022-12-19] MEDS: MONTELUKAST 10 MG TAB PO SCH (20:41)
[2022-12-19] MEDS: TAMSULOSIN 0.4 MG SR CAP PO SCH (20:41)
[2022-12-19] MEDS: JUVEN PACKET PO SCH (21:21)
[2022-12-20] MEDS: APIXABAN 5 MG TABLET PO SCH ×2 (07:21→20:15)
[2022-12-20] MEDS: PANTOPRAZOLE 40MG TABLET PO SCH (07:22)
[2022-12-20] MEDS: GALANTAMINE 16 MG PO SCH (08:00)
[2022-12-20] MEDS: [UNRECOGNIZED DRUG - OTHER] PO SCH (08:00)
[2022-12-20] MEDS: MIDODRINE HCL 5 MG TABLET PO SCH ×3 (08:21→20:17)
[2022-12-20] MEDS: ASPIRIN EC 81 MG TAB PO SCH (08:21)
[2022-12-20] MEDS: FOLIC ACID 1 MG TABLET PO SCH (08:22)
[2022-12-20] MEDS: AMOX/K CLAV 875 MG TAB PO SCH ×2 (08:22→20:14)
[2022-12-20] MEDS: AMIODARONE HCL 200 MG TAB PO SCH ×2 (08:22→20:14)
[2022-12-20] MEDS: NIRMATRELVIR/RITONAVIR TABLET PO SCH ×2 (08:23→20:16)
--- NOTE | 2022-12-20 08:23 | P.RH.PN ---
Estimated Length of Stay: 7 Expected Discharge Date: 12/25/22 Discharge Disposition Plan: Home Family Support: Yes [employer] Goal: Mobility, Transfers, Self Care Vital Signs: Last Vital Signs Temp 97.4 F 12/20/22 07:43 Pulse 57 12/20/22 07:43 Resp 14 12/20/22 07:43 BP 102/54 L 12/20/22 07:43 Pulse Ox 92 12/20/22 07:43 Laboratory: Laboratory Last Values WBC 8.60 K/uL (4.3-10.9) 12/19/22 04:23 RBC 4.01 M/uL (4.33-5.43) L 12/19/22 04:23 Hgb 12.4 g/dL (13.6-17.9) L 12/19/22 04:23 Hct 36.7 % (39.6-49.0) L 12/19/22 04:23 MCV 91.5 fL (80-100) 12/19/22 04:23 MCH 30.9 pg (27.0-35.0) 12/19/22 04:23 MCHC 33.8 g/dL (32.0-36.0) 12/19/22 04:23 RDW 14.0 % (12.1-15.2) 12/19/22 04:23 Plt Count 230 K/uL (152-406) 12/19/22 04:23 MPV 7.7 fL (7.6-11.3) 12/19/22 04:23 Neutrophils % 79.5 % (41.7-73.7) H 12/19/22 04:23 Lymphocytes % 8.3 % (15.3-44.8) L 12/19/22 04:23 Monocytes % 6.0 % (3.3-12.3) 12/19/22 04:23 Eosinophils % 5.8 % (0-4.4) H 12/19/22 04:23 Basophils % 0.4 % (0-1.3) 12/19/22 04:23 Absolute Neutrophils 6.9 K/uL (1.8-8.0) 12/19/22 04:23 Absolute Lymphocytes 0.7 K/uL (0.7-4.9) 12/19/22 04:23 Absolute Monocytes 0.5 K/uL (0.1-1.3) 12/19/22 04:23 Absolute Eosinophils 0.5 K/uL (0-0.5) 12/19/22 04:23 Absolute Basophils 0.0 K/uL (0-0.5) 12/19/22 04:23 Sodium 141 mmol/L (136-145) 12/19/22 04:23 Potassium 3.8 mmol/L (3.5-5.1) 12/19/22 04:23 Chloride 108 mmol/L (98-107) H 12/19/22 04:23 Carbon Dioxide 30 mmol/L (21-32) 12/19/22 04:23 Anion Gap 6.8 mEq/L (5.0-15.0) 12/19/22 04:23 BUN 21 mg/dL (7-18) H 12/19/22 04:23 Creatinine 1.05 mg/dL (0.70-1.30) 12/19/22 04:23 Est GFR (CKD-EPI) 73 ml/min (=/>90) L 12/19/22 04:23 Glucose 102 mg/dL (74-106) 12/19/22 04:23 Calcium 8.0 mg/dL (8.5-10.1) L 12/19/22 04:23 Magnesium 1.8 mg/dL (1.6-2.4) 12/19/22 04:23 Albumin 2.3 g/dL (3.4-5.0) L 12/19/22 04:23 Prealbumin 9.5 mg/dL (20-40) L 12/19/22 04:23 Urine Color Yellow (Yellow) 12/18/22 14:50 Urine Clarity Clear (Clear) 12/18/22 14:50 Urine pH 5.0 (5.0-7.0) 12/18/22 14:50 Ur Specific [place] 1.025 (1.005-1.030) 12/18/22 14:50 Glucose (UA)(Auto) Negative (Negative) 12/18/22 14:50 Urine Ketones Negative (Negative) 12/18/22 14:50 Urine Blood Trace (Negative) H 12/18/22 14:50 Urine Nitrite Negative (Negative) 12/18/22 14:50 Urine Bilirubin Negative (Negative) 12/18/22 14:50 Urine Urobilinogen Normal (Normal) 12/18/22 14:50 Ur Leukocyte Esterase Negative José Luis/uL (Negative) 12/18/22 14:50 Urine RBC <5 /HPF (None Seen) 12/18/22 14:50 Urine WBC <5 /HPF (<5) 12/18/22 14:50 Ur Squamous Epith Cells <5 /HPF (None Seen) 12/18/22 14:50 U Non-Squamous Epi Cells <5 /HPF (None Seen) 12/18/22 14:50 Urine Bacteria None seen /HPF (<20) 12/18/22 14:50 Urine Mucus Slight /HPF (None Seen) 12/18/22 14:50 Urine Culture Reflexed Not needed 12/18/22 14:50 Urine Total Protein Trace (Negative) H 12/18/22 14:50 SARS-CoV-2 Rap RNA(RT-PCR) Positive (NEGATIVE) A 12/18/22 18:00 Weight: 158 lb 9.6 oz Wound Present: No Closed Surgical Incision Present: No Negative Pressure Wound Therapy Present: No Physician Update: Right thrombolic event. Doing well so far. Transfering with min assistance. Labs will be reviewed. Prealbumin is low at 9.5 and he will require protein supplementation. Summary: Patient's care plan and senior living goals have been reviewed and revised as necessary. Please see the Rehabilitation Signature page for all necessary signatures.
--- NOTE | 2022-12-20 08:51 | P.RH.PN ---
Estimated Length of Stay: 17 Expected Discharge Date: 01/03/23 Discharge Disposition Plan: Home Family Support: Yes [employer] Goal: Mobility, Transfers, Self Care Vital Signs: Last Vital Signs Temp 97.4 F 12/20/22 07:43 Pulse 57 12/20/22 07:43 Resp 14 12/20/22 07:43 BP 102/54 L 12/20/22 07:43 Pulse Ox 92 12/20/22 07:43 Laboratory: Laboratory Last Values WBC 8.60 K/uL (4.3-10.9) 12/19/22 04:23 RBC 4.01 M/uL (4.33-5.43) L 12/19/22 04:23 Hgb 12.4 g/dL (13.6-17.9) L 12/19/22 04:23 Hct 36.7 % (39.6-49.0) L 12/19/22 04:23 MCV 91.5 fL (80-100) 12/19/22 04:23 MCH 30.9 pg (27.0-35.0) 12/19/22 04:23 MCHC 33.8 g/dL (32.0-36.0) 12/19/22 04:23 RDW 14.0 % (12.1-15.2) 12/19/22 04:23 Plt Count 230 K/uL (152-406) 12/19/22 04:23 MPV 7.7 fL (7.6-11.3) 12/19/22 04:23 Neutrophils % 79.5 % (41.7-73.7) H 12/19/22 04:23 Lymphocytes % 8.3 % (15.3-44.8) L 12/19/22 04:23 Monocytes % 6.0 % (3.3-12.3) 12/19/22 04:23 Eosinophils % 5.8 % (0-4.4) H 12/19/22 04:23 Basophils % 0.4 % (0-1.3) 12/19/22 04:23 Absolute Neutrophils 6.9 K/uL (1.8-8.0) 12/19/22 04:23 Absolute Lymphocytes 0.7 K/uL (0.7-4.9) 12/19/22 04:23 Absolute Monocytes 0.5 K/uL (0.1-1.3) 12/19/22 04:23 Absolute Eosinophils 0.5 K/uL (0-0.5) 12/19/22 04:23 Absolute Basophils 0.0 K/uL (0-0.5) 12/19/22 04:23 Sodium 141 mmol/L (136-145) 12/19/22 04:23 Potassium 3.8 mmol/L (3.5-5.1) 12/19/22 04:23 Chloride 108 mmol/L (98-107) H 12/19/22 04:23 Carbon Dioxide 30 mmol/L (21-32) 12/19/22 04:23 Anion Gap 6.8 mEq/L (5.0-15.0) 12/19/22 04:23 BUN 21 mg/dL (7-18) H 12/19/22 04:23 Creatinine 1.05 mg/dL (0.70-1.30) 12/19/22 04:23 Est GFR (CKD-EPI) 73 ml/min (=/>90) L 12/19/22 04:23 Glucose 102 mg/dL (74-106) 12/19/22 04:23 Calcium 8.0 mg/dL (8.5-10.1) L 12/19/22 04:23 Magnesium 1.8 mg/dL (1.6-2.4) 12/19/22 04:23 Albumin 2.3 g/dL (3.4-5.0) L 12/19/22 04:23 Prealbumin 9.5 mg/dL (20-40) L 12/19/22 04:23 Urine Color Yellow (Yellow) 12/18/22 14:50 Urine Clarity Clear (Clear) 12/18/22 14:50 Urine pH 5.0 (5.0-7.0) 12/18/22 14:50 Ur Specific [place] 1.025 (1.005-1.030) 12/18/22 14:50 Glucose (UA)(Auto) Negative (Negative) 12/18/22 14:50 Urine Ketones Negative (Negative) 12/18/22 14:50 Urine Blood Trace (Negative) H 12/18/22 14:50 Urine Nitrite Negative (Negative) 12/18/22 14:50 Urine Bilirubin Negative (Negative) 12/18/22 14:50 Urine Urobilinogen Normal (Normal) 12/18/22 14:50 Ur Leukocyte Esterase Negative José Luis/uL (Negative) 12/18/22 14:50 Urine RBC <5 /HPF (None Seen) 12/18/22 14:50 Urine WBC <5 /HPF (<5) 12/18/22 14:50 Ur Squamous Epith Cells <5 /HPF (None Seen) 12/18/22 14:50 U Non-Squamous Epi Cells <5 /HPF (None Seen) 12/18/22 14:50 Urine Bacteria None seen /HPF (<20) 12/18/22 14:50 Urine Mucus Slight /HPF (None Seen) 12/18/22 14:50 Urine Culture Reflexed Not needed 12/18/22 14:50 Urine Total Protein Trace (Negative) H 12/18/22 14:50 SARS-CoV-2 Rap RNA(RT-PCR) Positive (NEGATIVE) A 12/18/22 18:00 Weight: 158 lb 9.6 oz Wound Present: No Closed Surgical Incision Present: No Negative Pressure Wound Therapy Present: No Physician Update: He is positive for covid-19. Max assistance with transfers. Walked 15' max assistance. He has a shuffeling gait. He has short term memory loss and in on galantamine. Min assistance for cognitive functioning. Mod assistance for bathing. Max assistance for shower transfers. Unsteady balance. He is seen by wound care. Summary: Patient's care plan and senior care goals have been reviewed and revised as necessary. Please see the Rehabilitation Signature page for all necessary signatures.
[2022-12-20] MEDS: POLYVINYL ALCOHOL 1.4% 15 ML EACH EYE SCH ×2 (10:27→20:15)
[2022-12-20] MEDS: JUVEN PACKET PO SCH ×2 (10:28→20:15)
--- NOTE | 2022-12-20 16:15 | RAD REPORT ---
EXAM DESCRIPTION: RAD - Foot Right 2 View - 12/20/2022 3:28 pm CLINICAL HISTORY: bilateral foot pain COMPARISON: None. FINDINGS: No fracture, dislocation or periosteal reaction. No air or foreign body in the soft tissues. IMPRESSION: Negative right foot examination.
--- NOTE | 2022-12-20 16:25 | RAD REPORT ---
EXAM DESCRIPTION: RAD - Foot Left 2 View - 12/20/2022 3:28 pm CLINICAL HISTORY: bilateral foot pain COMPARISON: None. FINDINGS: No fracture, dislocation or periosteal reaction. Laterally directed osseous excrescence fr om the first metatarsal head, nonspecific but could represent a small osteochondroma. [id number] degenerative changes at the fourth metatarsophalangeal articulation. No air or foreign body in the soft tissues. IMPRESSION: No acute osseous abnormality of the left foot. Incidental findings as above.
[2022-12-20] MEDS ORDERED: CALCIUM 250 MG/VITAMIN D 125 IU TAB PO SCH (20:00)
[2022-12-20] MEDS: ENSURE ENLIVE 237 ML CAN PO SCH (20:15)
[2022-12-20] MEDS: TAMSULOSIN 0.4 MG SR CAP PO SCH (20:16)
[2022-12-20] MEDS: CARBIDOPA/LEVODOPA 25/100 TAB PO SCH (20:16)
[2022-12-20] MEDS: ATORVASTATIN 40 MG TAB PO SCH (20:17)
[2022-12-20] MEDS: MONTELUKAST 10 MG TAB PO SCH (20:17)
--- NOTE | 2022-12-21 01:29 | HP ---
Date of Admission: 12/18/2022 Addendum: Physical Examination: Vital Signs: Blood pressure 102/54, pulse 57, respiratory rate 14, temperature 97.4, oxygen saturati on 95%. General: Mr. Hernandez is in bed. The physical therapist did report he had some pain in the feet and i t was further evaluated in addition to his complaints about his gait. Neurological: In terms of cranial nerves, he does not have any apparent focal cranial nerve deficits . The motor examination in upper extremities, mild diffuse weakness, some on the right more than the left, perhaps 4/5 proximally and distally. In the lower extremities, he has difficulty lifting both feet off the bed only a few inches, and they quickly drop. He has difficulty bending the knees, mike y slightly able to bend the knees and his foot does have appeared to be some mild contractures in ter ms of a posture of plantar flexion of both feet. He has high-arched palate and hammer type toes with swelling of the first joint of the big toe on both sides. He does have pain to palpation of the toe s and the dorsum of his feet. His sensory exam shows no asymmetry that appears to be decreased to to uch and in terms of the gait with the therapist, his gait is slow. He has a posture where he tends t o have easy retropulsion tending to fall backwards. He has small steps and slow turning. In general , he does have a very slow appearance with bradykinesia as a marked feature, slow to speak, and there is no difficulty with his eating, he is slow to swallow, although he is not aspirating on pudding co nsistency. He did ambulate 15 feet twice with a rolling walker, but required maximum assistance to m aintain upright posture and not to fall and tendency is to fall backwards. FLORA/ROSCOE Voice ID: [id number]
[2022-12-21] MEDS: ACETAMINOPHEN 325 MG TABLET PO PRN (04:43)
[2022-12-21] MEDS ORDERED: TRAMADOL HCL 50 MG TAB PO PRN (05:03)
[2022-12-21 05:45] LABS: Absolute Lymphocytes (CBC) 0.9 K/uL (0.7-4.9); Hematocrit 32.5 % (39.6-49.0); Lymphocytes % 13.6 % (15.3-44.8); MCV 92.3 fL (80-100); MPV 7.5 fL (7.6-11.3); RBC Red Blood Cell Count 3.52 M/uL (4.33-5.43)
[2022-12-21 05:57] LABS: Potassium 4.2 mmol/L (3.5-5.1); Uric Acid 2.9 mg/dL (3.5-7.2)
[2022-12-21] MEDS: PANTOPRAZOLE 40MG TABLET PO SCH (06:31)
[2022-12-21] MEDS: AMOX/K CLAV 875 MG TAB PO SCH (07:36)
[2022-12-21] MEDS: MIDODRINE HCL 5 MG TABLET PO SCH ×3 (07:36→20:08)
[2022-12-21] MEDS: ASPIRIN EC 81 MG TAB PO SCH (07:36)
[2022-12-21] MEDS: POLYVINYL ALCOHOL 1.4% 15 ML EACH EYE SCH ×2 (07:37→20:05)
[2022-12-21] MEDS: AMIODARONE HCL 200 MG TAB PO SCH ×2 (07:37→20:08)
[2022-12-21] MEDS: ENSURE ENLIVE 237 ML CAN PO SCH ×2 (07:37→20:09)
[2022-12-21] MEDS: APIXABAN 5 MG TABLET PO SCH ×2 (07:37→20:08)
[2022-12-21] MEDS: FOLIC ACID 1 MG TABLET PO SCH (07:37)
[2022-12-21] MEDS: CARBIDOPA/LEVODOPA 25/100 TAB PO SCH ×2 (07:37→20:06)
[2022-12-21] MEDS: NIRMATRELVIR/RITONAVIR TABLET PO SCH ×2 (07:38→20:05)
[2022-12-21] MEDS: [UNRECOGNIZED DRUG - OTHER] PO SCH (07:39)
[2022-12-21] MEDS: JUVEN PACKET PO SCH ×2 (07:39→20:09)
[2022-12-21] MEDS: GALANTAMINE 16 MG PO SCH (07:39)
[2022-12-21] MEDS: CALCIUM 250 MG/VITAMIN D 125 IU TAB PO SCH ×2 (07:42→20:08)
[2022-12-21] MEDS ORDERED: CYANOCOBALAMIN 1,000 MCG TAB PO SCH (08:00)
--- NOTE | 2022-12-21 09:09 | RAD REPORT ---
EXAM DESCRIPTION: RAD - Chest Single View - 12/21/2022 8:31 am CLINICAL HISTORY: cough COMPARISON: Chest Single View dated 12/13/2022; Chest Single View dated 12/11/2022 FINDINGS: Lines: None. Lungs: Basilar airspace disease. This includes some reticulonodular and ill-defined opacities at the left lung base. Possible airspace opacities in the right upper lobe also noted. Pleural: No significant pleural effusions or pneumothorax. Cardiac: The heart size is within normal limits. Mediastinum: Within normal limits. Bones: No acute fractures. Sternotomy. Other: None IMPRESSION: Scattered bilateral ill-defined opacities which have developed since 12/13/2022 and coul d reflect developing pneumonia.
[2022-12-21] MEDS: levoFLOXacin 750 MG TAB PO SCH (12:58)
[2022-12-21] MEDS: MONTELUKAST 10 MG TAB PO SCH (20:06)
[2022-12-21] MEDS: TAMSULOSIN 0.4 MG SR CAP PO SCH (20:08)
[2022-12-21] MEDS: ATORVASTATIN 40 MG TAB PO SCH (20:08)
[2022-12-22] MEDS: PANTOPRAZOLE 40MG TABLET PO SCH (05:14)
[2022-12-22] MEDS: NIRMATRELVIR/RITONAVIR TABLET PO SCH ×2 (07:57→19:44)
[2022-12-22] MEDS: FOLIC ACID 1 MG TABLET PO SCH (07:58)
[2022-12-22] MEDS: AMIODARONE HCL 200 MG TAB PO SCH ×2 (07:58→20:00)
[2022-12-22] MEDS: ASPIRIN EC 81 MG TAB PO SCH (07:58)
[2022-12-22] MEDS: CARBIDOPA/LEVODOPA 25/100 TAB PO SCH ×2 (07:58→19:45)
[2022-12-22] MEDS: APIXABAN 5 MG TABLET PO SCH ×2 (07:59→19:44)
[2022-12-22] MEDS: MIDODRINE HCL 5 MG TABLET PO SCH ×3 (08:00→19:45)
[2022-12-22] MEDS: GALANTAMINE 16 MG PO SCH (08:00)
[2022-12-22] MEDS ORDERED: CYANOCOBALAMIN 1000MCG/ML INJ IM SCH ×2 (08:00→09:00)
[2022-12-22] MEDS: [UNRECOGNIZED DRUG - OTHER] PO SCH (08:00)
[2022-12-22] MEDS: CALCIUM 250 MG/VITAMIN D 125 IU TAB PO SCH ×2 (08:01→19:44)
[2022-12-22] MEDS: ENSURE ENLIVE 237 ML CAN PO SCH ×2 (08:09→19:45)
[2022-12-22] MEDS: JUVEN PACKET PO SCH ×2 (08:10→19:45)
[2022-12-22] MEDS: POLYVINYL ALCOHOL 1.4% 15 ML EACH EYE SCH ×2 (08:10→19:43)
[2022-12-22] MEDS: levoFLOXacin 750 MG TAB PO SCH (08:18)
[2022-12-22] MEDS: ATORVASTATIN 40 MG TAB PO SCH (19:44)
[2022-12-22] MEDS: TAMSULOSIN 0.4 MG SR CAP PO SCH (19:44)
[2022-12-22] MEDS: MONTELUKAST 10 MG TAB PO SCH (19:45)
[2022-12-23] MEDS: MELATONIN 3 MG TABLET PO PRN (01:07)
[2022-12-23] MEDS: ACETAMINOPHEN 325 MG TABLET PO PRN ×2 (01:07→07:52)
[2022-12-23] MEDS: PANTOPRAZOLE 40MG TABLET PO SCH (05:18)
[2022-12-23] MEDS: ASPIRIN EC 81 MG TAB PO SCH (07:50)
[2022-12-23] MEDS: APIXABAN 5 MG TABLET PO SCH ×2 (07:50→19:51)
[2022-12-23] MEDS: MIDODRINE HCL 5 MG TABLET PO SCH ×3 (07:50→19:50)
[2022-12-23] MEDS: CARBIDOPA/LEVODOPA 25/100 TAB PO SCH ×2 (07:50→19:52)
[2022-12-23] MEDS: FOLIC ACID 1 MG TABLET PO SCH (07:50)
[2022-12-23] MEDS: ASCORBIC ACID 500 MG TABLET PO SCH (07:51)
[2022-12-23] MEDS: GALANTAMINE 16 MG PO SCH (07:52)
[2022-12-23] MEDS: AMIODARONE HCL 200 MG TAB PO SCH ×2 (07:52→19:45)
[2022-12-23] MEDS: [UNRECOGNIZED DRUG - OTHER] PO SCH (07:52)
[2022-12-23] MEDS: POLYVINYL ALCOHOL 1.4% 15 ML EACH EYE SCH ×2 (07:53→19:54)
[2022-12-23] MEDS: CALCIUM 250 MG/VITAMIN D 125 IU TAB PO SCH ×2 (08:05→19:49)
[2022-12-23] MEDS: JUVEN PACKET PO SCH ×2 (08:06→19:54)
[2022-12-23] MEDS: NIRMATRELVIR/RITONAVIR TABLET PO SCH ×2 (08:06→19:46)
[2022-12-23] MEDS: ENSURE ENLIVE 237 ML CAN PO SCH ×2 (08:06→19:54)
[2022-12-23] MEDS: levoFLOXacin 750 MG TAB PO SCH (08:06)
--- NOTE | 2022-12-23 12:42 | EKG ---
Test Date: 2022-12-21 Test Time: 05:22:49 [employer] Sketch Maker: JIN MEASUREMENT RESULTS: Intervals: Rate: 61 NC: 198 QRSD: 110 QT: 444 QTc: 446 Slaughters: P: 84 NC: 198 QRS: -33 T: 67 INTERPRETIVE STATEMENTS: Sinus rhythm with marked sinus arrhythmia Left axis deviation Possible Inferior infarct, age undetermined Abnormal ECG Compared to ECG 12/11/2022 08:53:07 Atrial fibrillation no longer present Incomplete right bundle-branch block no longer present Myocardial infarct finding still present Electronically Signed On 12-23-22 12:37:25 ANIMAL EVISCERATOR by Rafiq Jean Baptiste
[2022-12-23] MEDS ORDERED: guaiFENesin 100 MG/5 ML UCUP PO PRN (14:36)
[2022-12-23] MEDS: MONTELUKAST 10 MG TAB PO SCH (19:51)
[2022-12-23] MEDS: ATORVASTATIN 40 MG TAB PO SCH (19:51)
[2022-12-23] MEDS: TAMSULOSIN 0.4 MG SR CAP PO SCH (19:52)
--- NOTE | 2022-12-23 22:13 | PN ---
Date of Progress Note: 12/23/2022 Vvqo-Cd-[id number] Visit Note Time Of Service: 12:30 p.m. Subjective: Mr. Kumar is actually doing well. He had some questions about the x-rays that were done on his feet to look for fractures. He was told they were negative. He, otherwise give a thumbs up. Actually when asked how well he is doing, if it is 1 or 2 thumbs up, he said 1 thumb up, but he is working hard to do well. He is in his isolation room due to being COVID positive and he is working t hrough that and will eventually be able to be out of the room once he has had either a repeat negativ e or 7 day stay with no symptoms. He had no other positives on his subjective. Review of Systems: No fevers or chills. No myalgias. No arthralgias. No rash, headache, or weight change. No psychia tric issues or gastrointestinal issues. No genitourinary complaints. He reports his mind is clearin g up. He denies any confusion or any shortness of breath. Physical Examination: Vital Signs: Blood pressure 103/63, pulse 53, respiratory rate 18, temperature 97.5, and oxygen satu ration 95% on 2 L of oxygen via nasal cannula. General: Mr. Kumar is resting in bed. He is in no significant distress. The physical therapist is working with him. HEENT: He is normocephalic, atraumatic. Sclerae anicteric. Oropharynx moist. Neck: Supple. Chest: Clear. Heart: Regular. Extremities: No edema or cyanosis. Neurologic: He does not have focal deficits, just diffuse weakness. Laboratory Studies: White blood cell count 6.6, hemoglobin 10.8, and platelets 229. Chemistries: S odium 136, potassium 4.2, chloride 105, carbon dioxide 28, BUN 25, creatinine 0.97, and glucose 92. Uric acid level of 2.9 and that was done after he complained of pain in the feet and that is negative . Calcium 7.5. Urinalysis: Trace blood, trace protein, otherwise normal. Again, COVID-19 test was positive on . X-ray/imaging: Chest x-ray done on the did show scattered bilateral ill-defined opacities, whic h developed since 12/13/2022, could show developing pneumonia. He is on antibiotics for that. Foot x-ray was done on the and identified no fractures in the right foot or left. He did have some c hest pain on the and an EKG was done. This study showed sinus rhythm, marked sinus arrhythmia w ith left axis deviation, age undetermined, possible inferior infarct. It should be noted that on 06/2023, EKG did show atrial fibrillation and no longer present at that point. Medications: Tylenol 650 every 6 hours as needed, amiodarone 200 mg twice daily, Eliquis 5 mg twice daily, Artificial Tears 2 drops in each eye twice daily, vitamin C 500 mg daily, Lipitor 40 mg at bed time, calcium plus D 1 tablet twice daily, Sinemet 25/100 twice daily, B12 injection 1000 mcg IM Ivon leaney to the wound that is noted on his back which is actually being addressed by [facility]ound [facility] and that is on topically daily, folic acid 1 mg daily, guaifenesin 200 mg twice daily, Manny 1 packe t twice daily, levofloxacin 750 mg daily, melatonin 3 mg at bedtime, midodrine 10 mg 3 times daily, S ingulair 10 mg at bedtime, Ensure Enlive 237 mL twice daily, Protonix 40 mg daily, Senokot-S 2 tablet s at bedtime, Flomax 0.4 mg at bedtime, and tramadol 50 mg every 4 hours as needed. Current Functional Status: Today he was able to ambulate 30 feet 3 times and 45 feet 2 times inside his room on a level surface with the use of a rolling walker and minimal assistance for safety. He d id bilateral sitting lower extremity exercises 20 reps, toe raises, heel raises, left and right quadr iceps extension, hip abduction and flexion, and pillow squeezes. He performed multiple nci-lh-yuwde transfers with minimal assistance using a rolling walker and stand to pivot transfers with minimal as sistance using a rolling walker. With speech therapy, he did use verbal rehearsal and visualization to recall 4 of 4 items that were unrelated. He did it correctly on 3 separate occasions. He demonst rated appropriate understanding of cause and effect relationship with 100% accuracy and minimum rita tance. The patient did need frequent reminders throughout the sessions to use strategies and was 85% intelligible at conversation level. Progress Towards Rehabilitation Goals: Mr. José is making very good progress towards his goals of b ecoming independent with upper and lower body dressing, transferring, toileting, ambulating at least 250 feet with modified independence, and up and down 15 steps with modified independence. Also, his goals of medical management of his conditions, which do include decubital areas on the back, which eliud e dressed by [facility], in addition to his COVID infection, which he is working on as well. Assessment: Mr. Kumar is a 77-year-old patient who was COVID-19 positive, not showing much symptoms. He did receive Paxlovid per protocol. He has midodrine for low blood pressure support. He has Sin gulair for allergic rhinitis. He has Artificial Tears for dry eyes. He has Eliquis 5 mg twice daily for atrial fibrillation and deep vein thrombosis prophylaxis. He has Cordarone for heart rate contr ol, Lipitor for dyslipidemia, Sinemet 25/100 twice daily for Parkinson disease. He has B12 injection s for low energy and low B12 level. He has protein supplementation twice daily with Manny and Ensure Enlive. He has Flomax for prostate hypertrophy and Ultram for pain. Comorbidities That Continue To Impact Rehabilitation Process: At this point, given his COVID-19 infe ction, he has to have physical therapy done in isolation. Once he is able to be out of that phase, prerna koo will be able to ambulate around the unit and likely will continue to thrive. He also has multiple comorbidities as noted above and those are being addressed aggressively. LB/MODL Voice ID: [id number] Report ID: [id number]
[2022-12-24] MEDS ORDERED: NA CHLORIDE 0.9% 1,000 ML IV SCH ×2 (07:00→16:00)
[2022-12-24] MEDS: PANTOPRAZOLE 40MG TABLET PO SCH (07:03)
[2022-12-24] MEDS: MIDODRINE HCL 5 MG TABLET PO SCH ×3 (07:08→20:00)
[2022-12-24] MEDS: GALANTAMINE 16 MG PO SCH (08:00)
[2022-12-24] MEDS: [UNRECOGNIZED DRUG - OTHER] PO SCH (08:00)
[2022-12-24] MEDS: AMIODARONE HCL 200 MG TAB PO SCH ×2 (08:00→20:00)
[2022-12-24 08:49] LABS: Absolute Lymphocytes (CBC) 1.4 K/uL (0.7-4.9); Hematocrit 35.5 % (39.6-49.0); Lymphocytes % 17.9 % (15.3-44.8); MCV 91.9 fL (80-100); MPV 7.7 fL (7.6-11.3); RBC Red Blood Cell Count 3.87 M/uL (4.33-5.43)
[2022-12-24] MEDS: ASCORBIC ACID 500 MG TABLET PO SCH (08:58)
[2022-12-24 08:59] LABS: Potassium 4.3 mmol/L (3.5-5.1)
[2022-12-24] MEDS: CARBIDOPA/LEVODOPA 25/100 TAB PO SCH ×2 (08:59→20:00)
[2022-12-24] MEDS: APIXABAN 5 MG TABLET PO SCH ×2 (08:59→20:01)
[2022-12-24] MEDS: FOLIC ACID 1 MG TABLET PO SCH (08:59)
[2022-12-24] MEDS: MEDIHONEY 44 ML TOPICAL TUBE TOP SCH (09:00)
[2022-12-24] MEDS: levoFLOXacin 750 MG TAB PO SCH (09:02)
[2022-12-24] MEDS: CALCIUM 250 MG/VITAMIN D 125 IU TAB PO SCH ×2 (09:03→20:01)
[2022-12-24] MEDS: ENSURE ENLIVE 237 ML CAN PO SCH ×2 (09:59→20:01)
[2022-12-24] MEDS: POLYVINYL ALCOHOL 1.4% 15 ML EACH EYE SCH ×2 (09:59→20:02)
[2022-12-24] MEDS: JUVEN PACKET PO SCH ×2 (10:01→20:01)
[2022-12-24] MEDS: ATORVASTATIN 40 MG TAB PO SCH (20:01)
[2022-12-24] MEDS: MONTELUKAST 10 MG TAB PO SCH (20:01)
[2022-12-24] MEDS: TAMSULOSIN 0.4 MG SR CAP PO SCH (20:01)
--- NOTE | 2022-12-24 21:23 | PN ---
Date of Progress Note: 12/24/2022 Time Of Service: 12:30 p.m. Subjective: Mr. Kumar is doing well. He is still in COVID isolation. Reports that his therapy is g leon along okay. He does not have new complaints. Review of Systems: No fevers, chills, nausea, vomiting, myalgias, arthralgias, rash, headache, weight change. No psychi atric complaints. Physical Examination: Vital Signs: Blood pressure is low down to 86/55. He has actually received 1 L of fluid. Blood pre ssure go up to 110/69, pulse of 60, respiratory rate 16, temperature 97.4, oxygen saturation 94%. General: Mr. Kumar is resting comfortably. His baugh which he had maintained while hospitalized. HEENT: He is normocephalic, atraumatic. Sclerae anicteric. Oropharynx is moist. Neck: Supple. Chest: Clear. Heart: Regular. Neurological: Diffuse weakness without focal deficits. Laboratory Studies: White blood cell count 8.0, hemoglobin 11.9, platelets 189. Sodium 133, potassi um 4.3, chloride 102, BUN 33, creatinine 0.96, calcium 8.3. X-ray Imaging: No new x-rays or imaging. Medications: His medications are unchanged since yesterday and have been reviewed. Current Level Of Functioning: Mr. Kumar was able to perform vql-tj-xejmw transfers with maximum assi stance using a rolling walker. His stand and pivot transfers done with mask with minimal assistance with a rolling walker. He did sit on the edge of bed unsupported for about 4 minutes with minimal as sistance. Moderate assistance needed for bed mobility to roll from right to left and scooting up als o from right to left and left to right. Because his blood pressure was low, he did have some feeling of lightheadedness, as he was sitting up in bed, in terms of the occupational therapy. Again noted, blood pressure was 91/51 at the start of the session, 93/55 at the end of his occupational therapy s ession, and he did do bilateral upper extremity exercises with a Thera-Band. He did require maximum assistance for toileting, hygiene, and pull up pants. With speech therapy, there was a decreased rat e and volume of speech. He did need moderate cuing throughout the session to recall the use of speec h strategies. Overall speech intelligibility at conversational level was at 80%. Progress Towards Rehabilitation Goals: Mr. Kumar is making slow progress today towards his rehabilit ation goals as he had very low blood pressures and has been somewhat dehydrated. He is receiving IV fluids, will receive 2 L. Likely will help him to be able to do better. When he was able to, he was able to ambulate significant distances and do well. He is being treated with Medihoney for wounds. Assessment: Mr. Kumar is a 77-year-old patient admitted to the rehabilitation unit with a metabolic encephalopathy. He is positive for COVID-19. He has had completed Paxlovid, also being treated for pneumonia. He is on antibiotics. Does have Parkinson disease, on Sinemet. He is treated with B12 i njections for lower energy, and he is actually on Levaquin for the urinary tract infection. Senokot for constipation, Flomax for prostate hypertrophy, and tramadol for pain. Comorbidities That Continue To Impact Rehabilitation Process: At this point, he has a COVID-19 posit ivity, and therefore, has to still be isolated. However, after about 3 more days, he should be able to be out of isolation and be able to do well. LB/MODL Voice ID: [id number] Report ID: [id number]
[2022-12-25] MEDS: PANTOPRAZOLE 40MG TABLET PO SCH (06:23)
[2022-12-25] MEDS: POLYVINYL ALCOHOL 1.4% 15 ML EACH EYE SCH ×2 (07:42→19:07)
[2022-12-25] MEDS: CALCIUM 250 MG/VITAMIN D 125 IU TAB PO SCH ×2 (07:43→19:07)
[2022-12-25] MEDS: levoFLOXacin 750 MG TAB PO SCH (07:44)
[2022-12-25] MEDS: MIDODRINE HCL 5 MG TABLET PO SCH ×3 (07:44→19:07)
[2022-12-25] MEDS: AMIODARONE HCL 200 MG TAB PO SCH ×3 (07:44→19:17)
[2022-12-25] MEDS: ENSURE ENLIVE 237 ML CAN PO SCH ×2 (07:45→19:08)
[2022-12-25] MEDS: JUVEN PACKET PO SCH ×2 (07:45→19:08)
[2022-12-25] MEDS: APIXABAN 5 MG TABLET PO SCH ×2 (07:45→19:07)
[2022-12-25] MEDS: FOLIC ACID 1 MG TABLET PO SCH (07:45)
[2022-12-25] MEDS: ASCORBIC ACID 500 MG TABLET PO SCH (07:45)
--- NOTE | 2022-12-25 07:46 | RAD REPORT ---
EXAM DESCRIPTION: RAD - Chest Single View - 12/25/2022 5:28 am CLINICAL HISTORY: to compare with previous result COMPARISON: Chest Single View dated 12/21/2022; Chest Single View dated 12/13/2022; Chest Single View dated 3Chest Single View dated 12/21/2022; Chest Single View dated 12/13/2022; Chest Single View dated 12/11/2022; Chest Abd Pelvis Wo Con dated 12/11/2022 FINDINGS: Lines: None. Lungs: Persistent ill-defined opacities are present the left lung base. Ill-defined opacities in the right upper lobe. Lung volumes are slightly improved. Pleural: No significant pleural effusions or pneumothorax. Cardiac: Similar size and configuration. Mediastinum: Within normal limits. Bones: No acute fractures. Sternotomy. Other: None IMPRESSION: Slight improved lung volumes with some persistent nodularity in the right upper lobe and left lung base. This could reflect sequela of recently treated pneumonia depending on the patient's condition.
[2022-12-25] MEDS: CARBIDOPA/LEVODOPA 25/100 TAB PO SCH ×2 (07:50→19:07)
[2022-12-25] MEDS: GALANTAMINE 16 MG PO SCH (08:00)
[2022-12-25] MEDS: [UNRECOGNIZED DRUG - OTHER] PO SCH (08:00)
[2022-12-25] MEDS: MEDIHONEY 44 ML TOPICAL TUBE TOP SCH (10:10)
[2022-12-25] MEDS: ACETAMINOPHEN 325 MG TABLET PO PRN (13:18)
[2022-12-25] MEDS: SODIUM CHLORIDE 1 GM TAB PO SCH (15:53)
[2022-12-25] MEDS: TAMSULOSIN 0.4 MG SR CAP PO SCH (19:07)
[2022-12-25] MEDS: ATORVASTATIN 40 MG TAB PO SCH (19:07)
[2022-12-25] MEDS: MONTELUKAST 10 MG TAB PO SCH (19:07)
[2022-12-25] MEDS: MELATONIN 3 MG TABLET PO PRN (19:08)
--- NOTE | 2022-12-25 22:40 | PN ---
Date of Progress Note: 12/25/2022 Time Of Service: 12 p.m. Subjective: Mr. Kumar is doing well. He is still on COVID isolation. He does not have any complain ts. He did have a repeat chest x-ray done today shows slight improvement in terms of clearing up carol te a bit pneumonia although some residual is noted on the scan. It should be noted he is now on salt tablets 1 g twice daily and will have abdominal binders and JADE hose as well. Review of Systems: No new findings such as fevers, chills, nausea, vomiting, myalgias, arthralgias, rash, headache, weig ht change, or psychiatric issues. Physical Examination: Vital Signs: Blood pressure 96/55, temperature 97.9, pulse 64, respiratory rate 16 to 19, and oxygen saturation 95%. General: Mr. Kumar is lying in bed, in no acute distress. He has no focal findings on his examinati on and no new deficits. Improving cognitive function. Laboratory Studies: No new laboratory studies compared to yesterday. White blood cell count was 8 a nd hemoglobin 11.9. Yesterday sodium was 133, BUN 33, creatinine 0.96, and calcium 8.6. His chest x -ray shows slight improving lung volumes with some persistent nodularity in the right upper lobe and left lung base. It could reflect sequelae of recently treated pneumonia depending on his condition. Current Medications: Tylenol 650 every 6 hours as needed, Cordarone 200 mg twice daily, Eliquis 5 mg twice daily, Artificial Tears 2 drops in each eye twice daily, vitamin C 500 mg daily, Lipitor 40 mg at bedtime, Os-Armond plus D 1 twice daily, Sinemet 25/100 twice daily, vitamin B12 injections 1000 mcg every 30 days, Medihoney to his wound on back, folic acid 1 mg daily, Levaquin 750 mg daily to end o n the 25th and today is 22nd, melatonin 3 mg at bedtime, midodrine 10 mg 3 times daily, Singulair 10 mg at bedtime, Protonix 40 mg daily, Ensure Enlive 237 mL twice daily, Senokot-S 2 at bedtime, Flomax 0.4 mg daily, tramadol 50 mg every 4 hours, and sodium chloride 1 g twice daily. Current Level Of Functioning: Currently he did to sit to stand transfers with minimal assistance usi ng a rolling walker. He did seated lower extremity exercise 20 repetitions and bilateral supine lowe r extremity exercises again 20 repetitions. With speech therapy, he did have understanding of cause and effect relationships. He demonstrated that with 75% accuracy during sequencing tasks. He needed moderate cues for strategies to overcome his issues, these were compensatory strategies and he was a ble to do intelligible indications 70% to 80% of the time with his sentences. Progress Towards Rehabilitation Goals: He is making fair progress overall towards his goals of becom ing independent with upper and lower body dressing, transferring, toileting, ambulating household dis tances and beyond up to say 250 feet with modified independence, and up and down 15 steps with modifi ed independence. Assessment: Mr. Kumar is a 77-year-old patient in the rehabilitation unit with a metabolic encephalo kianna that is improving. He is positive for COVID-19, which he became positive as he got onto the un it. He completed Paxlovid. He also had a bacterial pneumonia and he is on Levaquin and he is comple ting that. He has Parkinson disease treated with Sinemet and B12 injections done monthly for injecti ons. He has psychotic constipations, Flomax for prostate hypertrophy, and tramadol for pain. Plan: He will continue with the treatment as described above. He will continue with physical, occup ational, along with speech therapy 3.5 hours, 5 of 7 days. Comorbidities That Continue To Impact His Rehabilitation Process: At this point, he has the COVID is olation for a total of 10 days. He will be out of the 25th, today is the 22nd. Otherwise, he is doi ng very well without significant other limitations. FLORA/ROSCOE Voice ID: [id number] Report ID: [id number]
[2022-12-26] MEDS: PANTOPRAZOLE 40MG TABLET PO SCH (05:23)
[2022-12-26 05:54] LABS: Absolute Lymphocytes (CBC) 1.5 K/uL (0.7-4.9); Hematocrit 31.8 % (39.6-49.0); Lymphocytes % 21.7 % (15.3-44.8); MCV 91.6 fL (80-100); MPV 7.2 fL (7.6-11.3); RBC Red Blood Cell Count 3.47 M/uL (4.33-5.43)
[2022-12-26 06:12] LABS: Albumin 2.2 g/dL (3.4-5.0); Magnesium 1.8 mg/dL (1.6-2.4); Potassium 4.2 mmol/L (3.5-5.1)
[2022-12-26] MEDS: ACETAMINOPHEN 325 MG TABLET PO PRN (07:38)
[2022-12-26] MEDS: ENSURE ENLIVE 237 ML CAN PO SCH ×2 (07:38→20:12)
[2022-12-26] MEDS: CALCIUM 250 MG/VITAMIN D 125 IU TAB PO SCH ×2 (07:38→20:12)
[2022-12-26] MEDS: MIDODRINE HCL 5 MG TABLET PO SCH ×3 (07:39→20:11)
[2022-12-26] MEDS: JUVEN PACKET PO SCH ×2 (07:39→20:13)
[2022-12-26] MEDS: FOLIC ACID 1 MG TABLET PO SCH (07:39)
[2022-12-26] MEDS: ASCORBIC ACID 500 MG TABLET PO SCH (07:39)
[2022-12-26] MEDS: levoFLOXacin 750 MG TAB PO SCH (07:39)
[2022-12-26] MEDS: CARBIDOPA/LEVODOPA 25/100 TAB PO SCH ×2 (07:39→20:12)
[2022-12-26] MEDS: SODIUM CHLORIDE 1 GM TAB PO SCH ×2 (07:39→16:36)
[2022-12-26] MEDS: POLYVINYL ALCOHOL 1.4% 15 ML EACH EYE SCH ×2 (07:40→20:31)
[2022-12-26] MEDS: APIXABAN 5 MG TABLET PO SCH ×2 (07:40→20:11)
[2022-12-26] MEDS: [UNRECOGNIZED DRUG - OTHER] PO SCH (08:00)
[2022-12-26] MEDS: GALANTAMINE 16 MG PO SCH (08:00)
[2022-12-26] MEDS: AMIODARONE HCL 200 MG TAB PO SCH ×2 (08:00→20:11)
[2022-12-26] MEDS: MEDIHONEY 44 ML TOPICAL TUBE TOP SCH (10:37)
[2022-12-26] MEDS: ATORVASTATIN 40 MG TAB PO SCH (20:11)
[2022-12-26] MEDS: TAMSULOSIN 0.4 MG SR CAP PO SCH (20:11)
[2022-12-26] MEDS: MONTELUKAST 10 MG TAB PO SCH (20:12)
[2022-12-26] MEDS: MELATONIN 3 MG TABLET PO PRN (20:12)
--- NOTE | 2022-12-26 20:58 | PN ---
Date of Progress Note: 12/26/2022 [id number] Progress Note Visit Time Of Service: 1 p.m. Subjective: Mr. Kumar is doing much better today. He is sitting next to the window enjoying the sun shine. He has no new complaints. He is anticipating coming out of COVID isolation tomorrow. Review of Systems: No fevers, chills, nausea, vomiting, myalgias, arthralgias, rash, or headache. No psychiatric compla ints. No other complaints. Physical Examination: Vital Signs: Blood pressure 106/62, pulse 62, respiratory rate of 16, temperature 98, and oxygen sat uration 94%. on room air. General: Mr. Kumar is resting in his chair. He is in no acute distress. He has no new or focal def icits. No new complaints. He denies any confusion or disorientation. Chest: Clear. Heart: Regular. Extremities: No edema or cyanosis. Laboratory Studies: White blood cell count 7.0, hemoglobin 10.8, and platelets 249. Sodium 139, pot assium 4.2, chloride 106, his BUN did go up to 37, creatinine normal at 1.12, prealbumin improved fro m 9.5 on the to 13.0 on the . X-ray/imaging: Yesterday a chest x-ray was done and as noted previously, the study did show slight i mprovement in lung volumes with persistent nodularity of the right upper lobe and left lung base, whi ch could reflect sequelae of recently treated pneumonia as the patient is being treated. Medications: Medications are unchanged. He is on Eliquis 5 mg twice daily, Cordarone 200 mg twice d aily, Artificial Tears 2 drops in each eye twice daily, vitamin C 500 mg daily, Lipitor 40 mg at bedt aminata, Os-Armond plus D 250/125 twice daily, Sinemet 25/100 twice daily, B12 injections every month 1000 m g, Medihoney to the wound on the back twice daily, folic acid 1 mg daily, guaifenesin 200 mg 4 times daily as needed, Manny Protein Powder 1 packet twice daily, Levaquin 750 mg daily to end on the and today is 23, melatonin 3 mg at bedtime, midodrine 10 mg 3 times daily, Singulair 10 mg at bedtime , Ensure Enlive 237 mL twice daily, Protonix 40 mg daily, Senokot-S 2 at bedtime, sodium chloride 1 g twice daily, Flomax 0.4 mg at bedtime, and tramadol 50 mg every 4 hours as needed. Current Level Of Functioning: The patient does have much better blood pressures although still some are low with increase in his sodium. He still has systolics in the 90s and fluid intake will be enco uraged. With his physical therapy today, he did much better. He was able to ambulate 120 feet twice and another 80 feet once inside his room on levelled surface with a rolling walker and minimum rita tance. He did stand and pivot transfer with minimal assistance using a rolling walker. With speech pathology, demonstrated comprehension of cause and effect relationship with 78% accuracy and minimal cues. Progress Towards Rehabilitation Goals: He is making much better progress today towards his goals of becoming independent in upper and lower body dressing, toileting, transferring. His cognitive functi oning improving there and beginning to ambulate distances 250 to 500 feet with modified independence and up and down 10 steps with modified independence. Assessment: Mr. Kumar is a 77-year-old patient in the rehabilitation unit with metabolic encephalopa thy. He is improving very well. He is positive for COVID-19, which is also contributing to his ence phalopathy, likely a toxic cause, but he is much better from that standpoint. He did complete Paxlov id. He is also completing Levaquin for bacterial pneumonia. He does have Parkinson disease and is a mbulating much better. He is on Sinemet and that is continuing. He also has B12 monthly injections. Note, he is receiving Eliquis 5 mg twice daily for stroke and deep vein thrombosis risk reduction. Plan: 1.Physical and occupational therapy 3-1/2 hours a day, 5 of 7 days. 2.Continue with medications as noted above including the Levaquin, Sinemet, Flomax, and tramadol. Comorbid Conditions That Continue To Impact Rehabilitation Process: At this point, he has one more d ay of isolation for his COVID positivity and he should be able to thrive and do very well. He has another 2 days of antibiotics for pneumonia and that is improving as well. His mood is getting much better. LB/MODL Voice ID: [id number] Report ID: [id number]
[2022-12-27] MEDS: PANTOPRAZOLE 40MG TABLET PO SCH (06:30)
[2022-12-27] MEDS: APIXABAN 5 MG TABLET PO SCH ×2 (08:00→19:31)
[2022-12-27] MEDS: AMIODARONE HCL 200 MG TAB PO SCH ×3 (08:00→20:00)
[2022-12-27] MEDS: [UNRECOGNIZED DRUG - OTHER] PO SCH (08:00)
[2022-12-27] MEDS: GALANTAMINE 16 MG PO SCH (08:00)
--- NOTE | 2022-12-27 08:30 | P.RH.PN ---
Estimated Length of Stay: 17 Expected Discharge Date: 01/03/23 Discharge Disposition Plan: Home Family Support: Yes Group Home Goal: Mobility, Transfers, Self Care Vital Signs: Last Vital Signs Temp 97.4 F 12/27/22 07:54 Pulse 74 12/27/22 07:54 Resp 18 12/27/22 07:54 BP 97/66 12/27/22 07:54 Pulse Ox 94 12/27/22 07:54 Laboratory: Laboratory Last Values WBC 7.00 K/uL (4.3-10.9) 12/26/22 05:28 RBC 3.47 M/uL (4.33-5.43) L 12/26/22 05:28 Hgb 10.8 g/dL (13.6-17.9) L 12/26/22 05:28 Hct 31.8 % (39.6-49.0) L 12/26/22 05:28 MCV 91.6 fL (80-100) 12/26/22 05:28 MCH 31.1 pg (27.0-35.0) 12/26/22 05:28 MCHC 34.0 g/dL (32.0-36.0) 12/26/22 05:28 RDW 13.6 % (12.1-15.2) 12/26/22 05:28 Plt Count 249 K/uL (152-406) 12/26/22 05:28 MPV 7.2 fL (7.6-11.3) L 12/26/22 05:28 Neutrophils % 65.0 % (41.7-73.7) 12/26/22 05:28 Lymphocytes % 21.7 % (15.3-44.8) 12/26/22 05:28 Monocytes % 9.7 % (3.3-12.3) 12/26/22 05:28 Eosinophils % 2.9 % (0-4.4) 12/26/22 05:28 Basophils % 0.7 % (0-1.3) 12/26/22 05:28 Absolute Neutrophils 4.5 K/uL (1.8-8.0) 12/26/22 05:28 Absolute Lymphocytes 1.5 K/uL (0.7-4.9) 12/26/22 05:28 Absolute Monocytes 0.7 K/uL (0.1-1.3) 12/26/22 05:28 Absolute Eosinophils 0.2 K/uL (0-0.5) 12/26/22 05:28 Absolute Basophils 0.1 K/uL (0-0.5) 12/26/22 05:28 Sodium 139 mmol/L (136-145) 12/26/22 05:28 Potassium 4.2 mmol/L (3.5-5.1) 12/26/22 05:28 Chloride 106 mmol/L (98-107) 12/26/22 05:28 Carbon Dioxide 33 mmol/L (21-32) H 12/26/22 05:28 Anion Gap 4.2 mEq/L (5.0-15.0) L 12/26/22 05:28 BUN 37 mg/dL (7-18) H 12/26/22 05:28 Creatinine 1.12 mg/dL (0.70-1.30) 12/26/22 05:28 Est GFR (CKD-EPI) 67 ml/min (=/>90) L 12/26/22 05:28 Glucose 99 mg/dL (74-106) 12/26/22 05:28 Uric Acid 2.9 mg/dL (3.5-7.2) L 12/21/22 05:15 Calcium 8.3 mg/dL (8.5-10.1) L 12/26/22 05:28 Magnesium 1.8 mg/dL (1.6-2.4) 12/26/22 05:28 Albumin 2.2 g/dL (3.4-5.0) L 12/26/22 05:28 Prealbumin 13.0 mg/dL (20-40) L 12/26/22 05:28 Urine Color Yellow (Yellow) 12/18/22 14:50 Urine Clarity Clear (Clear) 12/18/22 14:50 Urine pH 5.0 (5.0-7.0) 12/18/22 14:50 Ur Specific [place] 1.025 (1.005-1.030) 12/18/22 14:50 Glucose (UA)(Auto) Negative (Negative) 12/18/22 14:50 Urine Ketones Negative (Negative) 12/18/22 14:50 Urine Blood Trace (Negative) H 12/18/22 14:50 Urine Nitrite Negative (Negative) 12/18/22 14:50 Urine Bilirubin Negative (Negative) 12/18/22 14:50 Urine Urobilinogen Normal (Normal) 12/18/22 14:50 Ur Leukocyte Esterase Negative José Luis/uL (Negative) 12/18/22 14:50 Urine RBC <5 /HPF (None Seen) 12/18/22 14:50 Urine WBC <5 /HPF (<5) 12/18/22 14:50 Ur Squamous Epith Cells <5 /HPF (None Seen) 12/18/22 14:50 U Non-Squamous Epi Cells <5 /HPF (None Seen) 12/18/22 14:50 Urine Bacteria None seen /HPF (<20) 12/18/22 14:50 Urine Mucus Slight /HPF (None Seen) 12/18/22 14:50 Urine Culture Reflexed Not needed 12/18/22 14:50 Urine Total Protein Trace (Negative) H 12/18/22 14:50 SARS-CoV-2 Rap RNA(RT-PCR) Positive (NEGATIVE) A 12/18/22 18:00 Weight: 157 lb 1.6 oz Wound Present: No Closed Surgical Incision Present: No Negative Pressure Wound Therapy Present: No Physician Update: Labs reviewed and Hgb is mildly low at 10.8. He is on hemocyte and protein supplementation. He will be put on a bladder training. He should be finished with his antibiotics for pneumonia. He will have the family services worker help with ingrown toe nails next Friday. He is independent with bed mobility. Mild retropulsion. Lower body dressing at contact guard assistance. Summary: Patient's care plan and terminal operator goals have been reviewed and revised as necessary. Please see the Rehabilitation Signature page for all necessary signatures.
[2022-12-27] MEDS: FOLIC ACID 1 MG TABLET PO SCH (09:52)
[2022-12-27] MEDS: levoFLOXacin 750 MG TAB PO SCH (09:52)
[2022-12-27] MEDS: CALCIUM 250 MG/VITAMIN D 125 IU TAB PO SCH ×2 (09:52→19:32)
[2022-12-27] MEDS: MIDODRINE HCL 5 MG TABLET PO SCH ×3 (09:53→19:33)
[2022-12-27] MEDS: ACETAMINOPHEN 325 MG TABLET PO PRN (09:53)
[2022-12-27] MEDS: CARBIDOPA/LEVODOPA 25/100 TAB PO SCH ×2 (09:53→19:32)
[2022-12-27] MEDS: SODIUM CHLORIDE 1 GM TAB PO SCH ×2 (09:54→16:58)
[2022-12-27] MEDS: ASCORBIC ACID 500 MG TABLET PO SCH (09:54)
[2022-12-27] MEDS: POLYVINYL ALCOHOL 1.4% 15 ML EACH EYE SCH ×2 (09:54→19:32)
[2022-12-27] MEDS: MEDIHONEY 44 ML TOPICAL TUBE TOP SCH (09:54)
[2022-12-27] MEDS: ENSURE ENLIVE 237 ML CAN PO SCH ×2 (09:55→19:31)
[2022-12-27] MEDS: JUVEN PACKET PO SCH ×2 (09:56→19:31)
[2022-12-27] MEDS ORDERED: NA CHLORIDE 0.9% 1,000 ML IV SCH (12:00)
[2022-12-27] MEDS: MELATONIN 3 MG TABLET PO PRN (19:33)
[2022-12-27] MEDS: MONTELUKAST 10 MG TAB PO SCH (19:33)
[2022-12-27] MEDS: ATORVASTATIN 40 MG TAB PO SCH (19:33)
[2022-12-27] MEDS: TAMSULOSIN 0.4 MG SR CAP PO SCH (19:33)
[2022-12-28] MEDS: PANTOPRAZOLE 40MG TABLET PO SCH (07:37)
[2022-12-28] MEDS: AMIODARONE HCL 200 MG TAB PO SCH ×2 (08:00→20:04)
[2022-12-28] MEDS: GALANTAMINE 16 MG PO SCH (08:00)
[2022-12-28] MEDS: [UNRECOGNIZED DRUG - OTHER] PO SCH (08:00)
[2022-12-28] MEDS: levoFLOXacin 750 MG TAB PO SCH (08:00)
[2022-12-28] MEDS: APIXABAN 5 MG TABLET PO SCH ×2 (08:27→20:05)
[2022-12-28] MEDS: SODIUM CHLORIDE 1 GM TAB PO SCH ×2 (09:05→17:06)
[2022-12-28] MEDS: POLYVINYL ALCOHOL 1.4% 15 ML EACH EYE SCH ×2 (09:05→20:06)
[2022-12-28] MEDS: ASCORBIC ACID 500 MG TABLET PO SCH (09:05)
[2022-12-28] MEDS: MEDIHONEY 44 ML TOPICAL TUBE TOP SCH (09:05)
[2022-12-28] MEDS: CARBIDOPA/LEVODOPA 25/100 TAB PO SCH ×2 (09:06→20:06)
[2022-12-28] MEDS: FOLIC ACID 1 MG TABLET PO SCH (09:06)
[2022-12-28] MEDS: MIDODRINE HCL 5 MG TABLET PO SCH ×3 (09:06→20:06)
[2022-12-28] MEDS: FERROUS SULFATE 325 MG TAB PO SCH (09:08)
[2022-12-28] MEDS: FE SULF/FA/VIT B COMP & C TAB PO SCH (09:08)
[2022-12-28] MEDS: ENSURE ENLIVE 237 ML CAN PO SCH ×2 (09:13→20:07)
[2022-12-28] MEDS: JUVEN PACKET PO SCH ×2 (09:13→20:07)
[2022-12-28] MEDS: CALCIUM 250 MG/VITAMIN D 125 IU TAB PO SCH ×2 (09:14→20:06)
[2022-12-28] MEDS: TAMSULOSIN 0.4 MG SR CAP PO SCH (20:05)
[2022-12-28] MEDS: MONTELUKAST 10 MG TAB PO SCH (20:06)
[2022-12-28] MEDS: ATORVASTATIN 40 MG TAB PO SCH (20:06)
[2022-12-29] MEDS: PANTOPRAZOLE 40MG TABLET PO SCH (07:27)
[2022-12-29] MEDS: AMIODARONE HCL 200 MG TAB PO SCH ×2 (08:00→20:45)
[2022-12-29] MEDS: GALANTAMINE 16 MG PO SCH (08:00)
[2022-12-29] MEDS: [UNRECOGNIZED DRUG - OTHER] PO SCH (08:00)
[2022-12-29] MEDS: ASCORBIC ACID 500 MG TABLET PO SCH (08:36)
[2022-12-29] MEDS: CARBIDOPA/LEVODOPA 25/100 TAB PO SCH ×2 (08:36→20:46)
[2022-12-29] MEDS: APIXABAN 5 MG TABLET PO SCH ×2 (08:37→20:46)
[2022-12-29] MEDS: FERROUS SULFATE 325 MG TAB PO SCH (08:37)
[2022-12-29] MEDS: MIDODRINE HCL 5 MG TABLET PO SCH ×3 (08:37→20:45)
[2022-12-29] MEDS: FOLIC ACID 1 MG TABLET PO SCH (08:38)
[2022-12-29] MEDS: FE SULF/FA/VIT B COMP & C TAB PO SCH (08:38)
[2022-12-29] MEDS: CALCIUM 250 MG/VITAMIN D 125 IU TAB PO SCH ×2 (08:38→20:48)
[2022-12-29] MEDS: MEDIHONEY 44 ML TOPICAL TUBE TOP SCH (09:10)
[2022-12-29] MEDS: POLYVINYL ALCOHOL 1.4% 15 ML EACH EYE SCH ×2 (09:10→20:48)
[2022-12-29] MEDS: ENSURE ENLIVE 237 ML CAN PO SCH ×2 (09:11→20:46)
[2022-12-29] MEDS: JUVEN PACKET PO SCH ×2 (09:11→20:46)
[2022-12-29] MEDS: SODIUM CHLORIDE 1 GM TAB PO SCH ×2 (09:14→17:27)
[2022-12-29] MEDS: ACETAMINOPHEN 325 MG TABLET PO PRN (09:20)
[2022-12-29 10:44] LABS: Troponin High Sensitivity 16.3 pg/mL (<58.9)
[2022-12-29] MEDS ORDERED: NA CHLORIDE 0.9% 1,000 ML IV SCH (11:00)
[2022-12-29] MEDS: ATORVASTATIN 40 MG TAB PO SCH (20:45)
[2022-12-29] MEDS: MONTELUKAST 10 MG TAB PO SCH (20:46)
[2022-12-29] MEDS: TAMSULOSIN 0.4 MG SR CAP PO SCH (20:46)
[2022-12-30] MEDS: PANTOPRAZOLE 40MG TABLET PO SCH (06:21)
[2022-12-30] MEDS: ACETAMINOPHEN 325 MG TABLET PO PRN (06:46)
[2022-12-30] MEDS: ENSURE ENLIVE 237 ML CAN PO SCH ×2 (07:36→19:42)
[2022-12-30] MEDS: POLYVINYL ALCOHOL 1.4% 15 ML EACH EYE SCH ×2 (07:38→19:40)
[2022-12-30] MEDS: FE SULF/FA/VIT B COMP & C TAB PO SCH (07:38)
[2022-12-30] MEDS: CALCIUM 250 MG/VITAMIN D 125 IU TAB PO SCH ×2 (07:38→19:40)
[2022-12-30] MEDS: SODIUM CHLORIDE 1 GM TAB PO SCH ×2 (07:38→16:36)
[2022-12-30] MEDS: MIDODRINE HCL 5 MG TABLET PO SCH ×3 (07:38→19:41)
[2022-12-30] MEDS: CARBIDOPA/LEVODOPA 25/100 TAB PO SCH ×2 (07:38→19:40)
[2022-12-30] MEDS: ASCORBIC ACID 500 MG TABLET PO SCH (07:39)
[2022-12-30] MEDS: APIXABAN 5 MG TABLET PO SCH ×2 (07:39→19:41)
[2022-12-30] MEDS: FERROUS SULFATE 325 MG TAB PO SCH (07:39)
[2022-12-30] MEDS: FOLIC ACID 1 MG TABLET PO SCH (07:39)
[2022-12-30] MEDS: AMIODARONE HCL 200 MG TAB PO SCH ×2 (07:40→19:41)
[2022-12-30] MEDS: JUVEN PACKET PO SCH ×2 (07:41→19:41)
[2022-12-30] MEDS: GALANTAMINE 16 MG PO SCH (07:41)
[2022-12-30] MEDS: [UNRECOGNIZED DRUG - OTHER] PO SCH (07:41)
--- NOTE | 2022-12-30 08:11 | P.CNS ---
Date of Consult: 12/30/22 Reason for Consult: painful toenails Requesting Physician: Dale Arriaga Chief Complaint: Painful elongated toenails Allergies albuterol Allergy (Verified 12/11/22 11:47) Anaphylaxis barium sulfate Allergy (Verified 12/13/22 10:57) Anaphylaxis gabapentin Allergy (Verified 12/11/22 11:47) Itching Home Medications: Atorvastatin Calcium 40 mg PO BEDTIME 12/13/22 Carboxymethylcellulose Sodium [Artificial Tears] 2 gtts OP QID 12/13/22 Cyanocobalamin (Vitamin B-12) [Cyanocobalamin Injection] 1 ml IM SEECOM 12/13/22 Folic Acid 1 mg PO DAILY 12/13/22 Galantamine HBr [Galantamine ER] 16 mg PO DAILY 12/13/22 Montelukast Sodium 10 mg PO BEDTIME 12/13/22 Omeprazole 20 mg PO DAILY 12/13/22 Tamsulosin [Flomax*] 0.4 mg PO BEDTIME 12/13/22 Amox/Clavulanate [Augmentin 875-125 Tab] 1 each PO BID #16 tab 12/16/22 Apixaban [Eliquis] 5 mg PO BID 12/16/22 Aspirin Chewable [Aspirin Chewable*] 81 mg PO DAILY tab.chew 12/16/22 Midodrine HCl [Proamatine*] 10 mg PO TID tab 12/16/22 Amiodarone HCl 100 mg PO BID 12/29/22 - Past Medical/Surgical History -: COPD -: CAD -: Lung Cancer -: CABG - Social History Smoking Status: Unknown if ever smoked Alcohol use: No CD- Drugs: No Caffeine use: No Place of Residence: Home Review of Systems 10-point ROS is otherwise unremarkable Physical Examination Temp Pulse Resp BP Pulse Ox 98.0 F 65 18 98/53 L 92 12/30/22 07:32 12/30/22 07:32 12/30/22 07:32 12/30/22 07:32 12/30/22 07:32 General: Alert, In no apparent distress, Oriented x3 Cardiovascular: No edema, Abnormal pulses (0/4 dp bilateral 1/4 pt bilateral) Capillary refill: <2 Seconds Musculoskeletal: No clubbing, No swelling, No contractures, No erythema, No tenderness, No warmth Integumentary: No rashes, No breakdown, No significant lesion, No tenderness/swelling, No erythema, No warmth, No cyanosis, Other (Thickened, hypertrophic bilateral hallux nails with subungual debris. Elongated nails 2-5 bilateral) Neurological: Sensation intact - Problems (1) Tinea unguium Current Visit: Yes Status: Acute (2) Generalized atherosclerosis Current Visit: Yes Status: Acute Conclusions/Impression: Debridement of nails at bedside Physician Review: Patient Assessed, Agree with Above Assessment and Plan Critical Care: Yes
[2022-12-30] MEDS: MEDIHONEY 44 ML TOPICAL TUBE TOP SCH (10:47)
[2022-12-30] MEDS: TAMSULOSIN 0.4 MG SR CAP PO SCH (19:40)
[2022-12-30] MEDS: ATORVASTATIN 40 MG TAB PO SCH (19:40)
[2022-12-30] MEDS: MONTELUKAST 10 MG TAB PO SCH (19:41)
--- NOTE | 2022-12-31 01:35 | PN ---
Date of Progress Note: 12/30/2022 Ufzp-Wn-Ccay Progress Note Time: 12:30 p.m. Subjective: Mr. Kumar is doing well. He denies any significant complaints. Reports no pain. His m ood is much better. Family is at the bedside. Denies any confusion. He is now out of COVID isolati on and doing great. Review of Systems: No fevers, chills, nausea, vomiting, myalgias, or arthralgias. No rash, headache, weight change, or psychiatric complaints. Physical Examination: Vital Signs: Blood pressure 105/59, pulse 60, respiratory rate 16, and temperature 97.6. He did hav e some orthostatic blood pressures, while lying 98/53, pulse 65; while sitting 98/54, pulse 66; and s tanding 97/56, pulse 67. No significant complaints at that point. General: In terms of his general exam, he is and is in no acute distress. HEENT: He is normocephalic and atraumatic. Sclerae anicteric. Oropharynx is moist. Neck: Supple. Chest: Clear. Heart: Regular. Neurological: He has no focal deficits. He diffuse weakness. Laboratory Studies: No new laboratory studies since the , except on the that is yesterday, creatine kinase 61, troponin 16.3 and he did have a chest x-ray on and again shows some improvem ent there as well. X-ray imaging as noted. Current Medications: Tylenol 650 mg every 6 hours, amiodarone 100 mg twice daily, Eliquis 5 mg twice daily, Artificial Tears 2 drops in each eyes twice daily, ascorbic acid 500 mg daily, Lipitor 40 mg at bedtime, carbidopa/levodopa 25/100 one twice daily, B12 injections 1000 mcg every 30 days, MediHon ey to these wounds in the back, ferrous sulfate 325 mg daily, folic acid 1 mg daily, melatonin 3 mg a t bedtime, midodrine 10 mg 3 times daily for low blood pressure, Singulair 10 mg at bedtime, Hemocyte Plus 1 tab daily, Flomax 0.4 mg at bedtime, sodium chloride tablets 1 g twice daily, and Senokot-S 2 at bedtime. Current Level Functioning: Currently, he did ambulate to 120 feet and 250 feet twice inside on level surface with rolling walker and contact guard assistance. He ascended and descended 15 steps with s tandby assistance. With speech, he needed minimal assistance due to light speech. Production strate gies to improve speech intelligibility. He was 90% intelligible at word level and 80% intelligible a t sentence level. Progress Towards Rehabilitation Goals: Mr. Kumar is making excellent progress towards rehabilitation goals now that he is out of COVID isolation and denies any significant detractions or limitations. Assessment And Plan: Mr. Kumar is a 77-year-old patient, admitted to the rehabilitation unit with me tabolic encephalopathy that is now resolved. He does have some diffuse weakness. He is doing very w ell. He has Parkinson disease and that is well managed. He had COVID-19 that is now over. He has c ompleted his Paxlovid and his 10 days of isolation. Furthermore, he has bacterial pneumonia, has com pleted treatment with Levaquin. His poor energy level is treated with vitamin B12 and he has Eliquis 5 mg twice daily for DVT prophylaxis. Plan: 1.He will continue with physical, occupational, and speech therapy 3 hours a day, 5 of 7 days. 2.Continue all medications as noted. Please note, in terms of his kidney function, his kidney funct ion is normal. Comorbidities That Continue To Impact Rehabilitation Process: At this point, he has no significant c omorbidities that are stopping him from thriving and doing great. LB/MODL Voice ID: [id number] Report ID: [id number]
[2022-12-31] MEDS: PANTOPRAZOLE 40MG TABLET PO SCH (05:17)
[2022-12-31] MEDS: POLYVINYL ALCOHOL 1.4% 15 ML EACH EYE SCH ×2 (07:32→19:52)
[2022-12-31] MEDS: CALCIUM 250 MG/VITAMIN D 125 IU TAB PO SCH ×2 (07:32→19:52)
[2022-12-31] MEDS: MIDODRINE HCL 5 MG TABLET PO SCH ×3 (07:32→19:53)
[2022-12-31] MEDS: APIXABAN 5 MG TABLET PO SCH ×2 (07:32→19:53)
[2022-12-31] MEDS: ASCORBIC ACID 500 MG TABLET PO SCH (07:33)
[2022-12-31] MEDS: FERROUS SULFATE 325 MG TAB PO SCH (07:33)
[2022-12-31] MEDS: SODIUM CHLORIDE 1 GM TAB PO SCH ×2 (07:33→16:45)
[2022-12-31] MEDS: JUVEN PACKET PO SCH ×2 (07:33→19:54)
[2022-12-31] MEDS: FE SULF/FA/VIT B COMP & C TAB PO SCH (07:33)
[2022-12-31] MEDS: ENSURE ENLIVE 237 ML CAN PO SCH ×2 (07:33→19:54)
[2022-12-31] MEDS: CARBIDOPA/LEVODOPA 25/100 TAB PO SCH ×2 (07:33→19:53)
[2022-12-31] MEDS: FOLIC ACID 1 MG TABLET PO SCH (07:33)
[2022-12-31] MEDS: AMIODARONE HCL 200 MG TAB PO SCH ×2 (07:56→19:54)
[2022-12-31] MEDS: [UNRECOGNIZED DRUG - OTHER] PO SCH (07:56)
[2022-12-31] MEDS: GALANTAMINE 16 MG PO SCH (07:56)
[2022-12-31] MEDS: MEDIHONEY 44 ML TOPICAL TUBE TOP SCH (08:11)
[2022-12-31] MEDS: ACETAMINOPHEN 325 MG TABLET PO PRN (08:19)
[2022-12-31] MEDS: ATORVASTATIN 40 MG TAB PO SCH (19:53)
[2022-12-31] MEDS: MONTELUKAST 10 MG TAB PO SCH (19:53)
[2022-12-31] MEDS: TAMSULOSIN 0.4 MG SR CAP PO SCH (19:53)
[2023-01-01] MEDS: ACETAMINOPHEN 325 MG TABLET PO PRN ×2 (01:17→08:57)
--- NOTE | 2023-01-01 01:38 | PN ---
Date of Progress Note: 12/31/2022 Pksn-Cc-Pzta Visit Progress Note Time Of Service: 1 p.m. Subjective: Mr. Kumar is doing very well. He is in his room, just finished a therapy session. He h as no complaints. His mood is doing well. Review of Systems: No fevers, chills, nausea, vomiting, myalgias, arthralgias, rash, headache, or weight change. No psy chiatric complaints. Physical Examination: Vital Signs: Blood pressure 108/62, pulse 63, respiratory rate 18, temperature 97.9, and oxygen satu ration 97%. General: Mr. Kumar is doing well in terms of his general examination. He is bearded and has been th at way throughout hospitalization. Neurologic: He does not have any disorientation or confusion. He follows all commands appropriately . No obvious cranial nerve deficits. He has mild diffuse weakness that is improving significantly. Laboratory Studies: No new laboratory studies. X-ray/imaging: No new x-ray or imaging. Medications: His medications are unchanged compared to his last visit, yesterday. Continues Eliquis 5 mg twice daily for stroke and DVT risk reduction and midodrine to help support blood pressure. He has Ultram for pain and Senokot for constipation. Current Functional Status: Currently, he ambulated 120 feet twice and 420 feet twice on level surfac e with a rolling walker and standby assistance. He ascended and descended 15 steps with standby assi stance using bilateral handrails. With speech therapy, he is doing much better, but according to spe ech therapist, he consumed 100% of his meal with no overt signs of aspiration. Progress Towards Rehabilitation Goals: Currently he is making excellent progress towards his goals o f becoming independent with upper and lower body dressing, toileting, transferring, showering, mobili zing over 250 feet and up and down 15 steps and also with his cognitive functioning. Assessment: Mr. Kumar is a 77-year-old patient in the rehabilitation unit with metabolic encephalopa thy, which has resolved. He has diffuse weakness, which has improved significantly. His Parkinson d isease is well managed. He also has COVID-19 and has been treated for that. He had pneumonia and he has been treated for that. He has Eliquis 5 mg daily for stroke and deep vein thrombosis risk reduc tion. Plan: 1.Continue with physical, occupational, and speech therapy as noted for 3.5 hours, 5 to 7 days a wee k. 2.Continue all medications as needed. Note, his kidney function is normal. Comorbidities That Continue To Impact His Rehabilitation Process: At this point, no comorbid conditi ons negatively impact his rehabilitation and again he is doing very well. FLORA/ROSCOE Voice ID: [id number] Report ID: [id number]
[2023-01-01] MEDS: PANTOPRAZOLE 40MG TABLET PO SCH (05:21)
[2023-01-01] MEDS: GALANTAMINE 16 MG PO SCH (08:00)
[2023-01-01] MEDS: [UNRECOGNIZED DRUG - OTHER] PO SCH (08:00)
[2023-01-01] MEDS: MEDIHONEY 44 ML TOPICAL TUBE TOP SCH (08:55)
[2023-01-01] MEDS: POLYVINYL ALCOHOL 1.4% 15 ML EACH EYE SCH ×2 (08:55→20:21)
[2023-01-01] MEDS: FE SULF/FA/VIT B COMP & C TAB PO SCH (08:55)
[2023-01-01] MEDS: CARBIDOPA/LEVODOPA 25/100 TAB PO SCH ×2 (08:55→20:20)
[2023-01-01] MEDS: APIXABAN 5 MG TABLET PO SCH ×2 (08:56→20:20)
[2023-01-01] MEDS: AMIODARONE HCL 200 MG TAB PO SCH ×2 (08:56→20:20)
[2023-01-01] MEDS: FERROUS SULFATE 325 MG TAB PO SCH (08:56)
[2023-01-01] MEDS: ASCORBIC ACID 500 MG TABLET PO SCH (08:57)
[2023-01-01] MEDS: MIDODRINE HCL 5 MG TABLET PO SCH ×3 (08:57→20:20)
[2023-01-01] MEDS: SODIUM CHLORIDE 1 GM TAB PO SCH ×2 (08:57→17:22)
[2023-01-01] MEDS: FOLIC ACID 1 MG TABLET PO SCH (08:57)
[2023-01-01] MEDS: CALCIUM 250 MG/VITAMIN D 125 IU TAB PO SCH ×2 (08:57→20:19)
[2023-01-01] MEDS: ENSURE ENLIVE 237 ML CAN PO SCH ×2 (10:22→20:20)
[2023-01-01] MEDS: JUVEN PACKET PO SCH ×2 (10:22→20:20)
--- NOTE | 2023-01-01 14:43 | PN ---
Date of Progress Note: 01/01/2023 Time Of Service: 9 a.m. Subjective: Mr. Kumar is doing well. He is sitting by the window, eating breakfast. He denies any pain, any complaints. Review of Systems: No fevers, chills. No myalgias, arthralgias. No rash or headache. No psychiatric complaints. No g astrointestinal or genitourinary complaints. Physical Examination: Vital Signs: Blood pressure 102/57, pulse 56, respiratory rate 18, temperature 98.2, oxygen saturati on 94%. General: Mr. Kumar is sitting comfortably in chair. He is fully bearded, which he has always been. HEENT: He is normocephalic, atraumatic. Sclerae anicteric. Oropharynx is moist. Neck: Supple. Chest: Clear. Heart: Regular. Extremities: Showed no significant edema, clubbing, or cyanosis. Neurological: He is diffusely weak, but actually he is symmetric and getting stronger. Laboratory Studies: No new laboratory studies. X-ray imaging: No new x-ray imaging. Medications: Medications have been reviewed and remained unchanged. He is on medications for DVT pr ophylaxis, heart rate control, for Parkinson disease, for insomnia, constipation, benign prostatic hy pertrophy, and pain. Current Functional Status: Currently, he ambulated 100 feet and another 120 feet using a rolling wal ker with standby assistance. He ascended and descended 15 steps with standby assistance using bilate ral handrails. He did multiple stand and pivot transfers from wheelchair to bed with standby assista nce using a rolling walker. He is bed supine to sit and sit to stand transfers with a rolling walker with supervision. He ambulated to the target with a rolling walker and performed that with supervis ion and with speech therapy, he is noted to be more independent, self-feeding. He is able to the appropriate size and chewing appropriately. He is using compensatory swallowing strategies, alternating liquids and solids. Progress With His Rehabilitation Goals: He is making very good progress towards his goals of becomin g independent with upper and lower body dressing, toileting, transferring, eating without any evidenc e of aspiration, for showering, for ambulating now 400 feet towards independence and up and down 10-1 5 steps with modified independence of independent. Assessment: Mr. Kumar is a 77-year-old patient, in the rehabilitation unit with metabolic encephalop athy which has resolved. He is improving in his strength. His Parkinson disease is well managed. Dileep koo has no evidence of any tremors. No significant bradykinesia. No significant retropulsion and his gait is doing well. He has Eliquis 5 mg daily for stroke and deep vein thrombosis risk reduction. Dileep koo did complete treatment for pneumonia. Plan: 1.Continue physical and occupational therapy for 3.5 hours, 5 to 7 days as he has been doing. 2.Continue medications as noted above for conditions outlined. 3.His renal function is normal. Comorbidities That Continue To Impact Rehabilitation Process: At this point, his comorbidities are w ell managed and do not negatively impact his rehabilitation process and he is looking forward to disc harge home. Note, he will continue with home health and physical therapy. FLORA/ROSCOE Voice ID: [id number] Report ID: [id number]
[2023-01-01] MEDS: TAMSULOSIN 0.4 MG SR CAP PO SCH (20:19)
[2023-01-01] MEDS: ATORVASTATIN 40 MG TAB PO SCH (20:20)
[2023-01-01] MEDS: MONTELUKAST 10 MG TAB PO SCH (20:20)
[2023-01-02 06:18] LABS: Absolute Lymphocytes (CBC) 1.3 K/uL (0.7-4.9); Hematocrit 33.7 % (39.6-49.0); Lymphocytes % 28.2 % (15.3-44.8); MCV 92.5 fL (80-100); MPV 6.6 fL (7.6-11.3); RBC Red Blood Cell Count 3.64 M/uL (4.33-5.43)
[2023-01-02 06:32] LABS: Albumin 2.4 g/dL (3.4-5.0); Magnesium 2.1 mg/dL (1.6-2.4); Prealbumin 15.9 mg/dL (20-40)
[2023-01-02] MEDS: PANTOPRAZOLE 40MG TABLET PO SCH (07:08)
[2023-01-02] MEDS: AMIODARONE HCL 200 MG TAB PO SCH ×2 (08:00→19:53)
[2023-01-02] MEDS: [UNRECOGNIZED DRUG - OTHER] PO SCH (08:00)
[2023-01-02] MEDS: GALANTAMINE 16 MG PO SCH (08:00)
[2023-01-02] MEDS: APIXABAN 5 MG TABLET PO SCH ×2 (08:52→19:51)
[2023-01-02] MEDS: FERROUS SULFATE 325 MG TAB PO SCH (08:52)
[2023-01-02] MEDS: FOLIC ACID 1 MG TABLET PO SCH (08:52)
[2023-01-02] MEDS: ASCORBIC ACID 500 MG TABLET PO SCH (08:52)
[2023-01-02] MEDS: CARBIDOPA/LEVODOPA 25/100 TAB PO SCH ×2 (08:52→19:52)
[2023-01-02] MEDS: MIDODRINE HCL 5 MG TABLET PO SCH ×3 (08:52→19:52)
[2023-01-02] MEDS: SODIUM CHLORIDE 1 GM TAB PO SCH ×2 (08:53→16:06)
[2023-01-02] MEDS: FE SULF/FA/VIT B COMP & C TAB PO SCH (08:53)
[2023-01-02] MEDS: CALCIUM 250 MG/VITAMIN D 125 IU TAB PO SCH ×2 (08:56→19:53)
[2023-01-02] MEDS: MEDIHONEY 44 ML TOPICAL TUBE TOP SCH (09:23)
[2023-01-02] MEDS: POLYVINYL ALCOHOL 1.4% 15 ML EACH EYE SCH ×2 (09:23→19:51)
[2023-01-02] MEDS: JUVEN PACKET PO SCH ×2 (09:24→19:53)
[2023-01-02] MEDS: ENSURE ENLIVE 237 ML CAN PO SCH ×2 (09:24→19:53)
[2023-01-02] MEDS: MONTELUKAST 10 MG TAB PO SCH (19:51)
[2023-01-02] MEDS: TAMSULOSIN 0.4 MG SR CAP PO SCH (19:52)
[2023-01-02] MEDS: ATORVASTATIN 40 MG TAB PO SCH (19:52)
[2023-01-02 21:41] VITALS: O2SAT 95
--- NOTE | 2023-01-02 23:29 | PN ---
Date of Progress Note: 01/02/2023 Hsot-Rq-Zsnz Progress Note Time Of Service: 12 noon. Subjective: Mr. Kumar is doing well. He is happy and family is with him. He is ready to go home. He does report chronic pain in the left eye, which has been going on for several years and for which he is receiving treatment by an technical program manager in [place]. He has no additional complaints. No iva n anywhere and is again feeling much stronger than he did when he first came to the unit. Denies any confusion or disorientation. Review of Systems: Aside from the mild eye pain in the left eye and which he said was long chronic pain, no fevers, chil ls, nausea, vomiting, myalgias, arthralgias, headache, weight change, rash, psychiatric complaints, g astrointestinal complaints, or genitourinary complaints. Physical Examination: Vital Signs: Blood pressure is 94/54, pulse of 79, respiratory rate 18, temperature 97.4, and oxygen saturation 94% on room air. General: Mr. Kumar is sitting in his chair. Family at his side. He is in no acute distress. HEENT: He is normocephalic, atraumatic. Sclerae are anicteric. Oropharynx is moist. Neck: Supple. Chest: Clear. Heart: Regular. Extremities: No edema or cyanosis. Neurologic: He is alert and oriented to situation, place, and person. No focal deficits. His weakn ess is much improved in all extremities. Laboratory Studies: White blood cell count 4.8, hemoglobin 11.2, and platelets 203. Chemistry: Sod ium 136, potassium 4.0, chloride 103, carbon dioxide 30, BUN 36, and creatinine 0.97. Prealbumin inc reased from 9.5 on the 19 of December to 15.3 today. Calcium 8.4, which has increased from 7.5 on the . Magnesium 2.1. X-ray/imaging: No x-ray or imaging. Medications: His medications have been reviewed and are unchanged since yesterday. Current Functional Status: Currently he was able to ambulate 600 feet and another 400 feet on level surface with the use of a rolling walker independently. He did display some decreased heel strike wi th left lower extremity. He ascended and descended 15 steps independently with bilateral handrails t wice. He did hop picker multiple objects on the floor with a grabber independently. With speech therap y, the patient did refuse minced and moist diet. He provided trials of soft and easy to chew diet an d demonstrated appropriate use of compensatory swallowing strategies including adequate mastication, lingual sweep, alternated liquids and solids and double swallow as needed. He had no evidence of ove rt aspiration and again he is looking forward to going home. Progress Towards Rehabilitation Goals: He has made very good progress and has met his rehabilitation goals of now becoming independent with his ambulation of 400 feet, up and down 15 steps, eating inde pendently without difficulty, transfers, upper body dressing, lower body dressing all excellent. Assessment: Mr. Kumar is a 77-year-old patient admitted to the rehabilitation unit with metabolic en cephalopathy, which has resolved. He has improved strength. He does have Parkinson's and that is no t limiting him. He is ambulating well. No evidence of retropulsion. No significant bradykinesia or tremors. He had pneumonias, which has resolved after treatment. He had COVID positivity and was tr eated with Paxlovid. He was kept on Eliquis 5 mg twice daily for stroke and deep vein thrombosis ris k reduction and did not have stroke. Plan: He will be ready for discharge in the morning after a brief amount of therapy. Note, renal fu nction is normal and he will continue home medications as noted. Comorbidities That Impact His Rehabilitation Process: At this point, he has no comorbidities that ne gatively impact his rehabilitation process. He is ready to discharge home and will continue outpatie nt physical therapy and follow up with his technical program manager for his left eye chronic issues. Follow u p with a neurologist. He wants to follow up in my office and that will be fine and we will manage his Parkinson disease. LB/MODL Voice ID: [id number] Report ID: [id number]
[2023-01-03] MEDS: PANTOPRAZOLE 40MG TABLET PO SCH (07:34)
[2023-01-03] MEDS: [UNRECOGNIZED DRUG - OTHER] PO SCH (08:00)
[2023-01-03] MEDS: AMIODARONE HCL 200 MG TAB PO SCH (08:00)
[2023-01-03] MEDS: GALANTAMINE 16 MG PO SCH (08:00)
[2023-01-03 08:05] VITALS: BP 94/59; TEMP 97.6
--- NOTE | 2023-01-03 08:34 | P.RH.PN ---
Estimated Length of Stay: 16 Expected Discharge Date: 01/03/23 Discharge Disposition Plan: Home Family Support: Yes Half-Way Goal: Mobility, Transfers, Self Care Vital Signs: Last Vital Signs Temp 97.6 F 01/03/23 08:00 Pulse 70 01/03/23 08:00 Resp 16 01/03/23 08:00 BP 94/59 L 01/03/23 08:00 Pulse Ox 97 01/03/23 08:00 Laboratory: Laboratory Last Values WBC 4.80 K/uL (4.3-10.9) 01/02/23 05:09 RBC 3.64 M/uL (4.33-5.43) L 01/02/23 05:09 Hgb 11.2 g/dL (13.6-17.9) L 01/02/23 05:09 Hct 33.7 % (39.6-49.0) L 01/02/23 05:09 MCV 92.5 fL (80-100) 01/02/23 05:09 MCH 30.6 pg (27.0-35.0) 01/02/23 05:09 MCHC 33.1 g/dL (32.0-36.0) 01/02/23 05:09 RDW 14.2 % (12.1-15.2) 01/02/23 05:09 Plt Count 203 K/uL (152-406) 01/02/23 05:09 MPV 6.6 fL (7.6-11.3) L 01/02/23 05:09 Neutrophils % 55.6 % (41.7-73.7) 01/02/23 05:09 Lymphocytes % 28.2 % (15.3-44.8) 01/02/23 05:09 Monocytes % 9.9 % (3.3-12.3) 01/02/23 05:09 Eosinophils % 5.5 % (0-4.4) H 01/02/23 05:09 Basophils % 0.8 % (0-1.3) 01/02/23 05:09 Absolute Neutrophils 2.6 K/uL (1.8-8.0) 01/02/23 05:09 Absolute Lymphocytes 1.3 K/uL (0.7-4.9) 01/02/23 05:09 Absolute Monocytes 0.5 K/uL (0.1-1.3) 01/02/23 05:09 Absolute Eosinophils 0.3 K/uL (0-0.5) 01/02/23 05:09 Absolute Basophils 0.0 K/uL (0-0.5) 01/02/23 05:09 Sodium 136 mmol/L (136-145) 01/02/23 05:09 Potassium 4.0 mmol/L (3.5-5.1) 01/02/23 05:09 Chloride 103 mmol/L (98-107) 01/02/23 05:09 Carbon Dioxide 30 mmol/L (21-32) 01/02/23 05:09 Anion Gap 7.0 mEq/L (5.0-15.0) 01/02/23 05:09 BUN 36 mg/dL (7-18) H 01/02/23 05:09 Creatinine 0.97 mg/dL (0.70-1.30) 01/02/23 05:09 Est GFR (CKD-EPI) 80 ml/min (=/>90) L 01/02/23 05:09 Glucose 119 mg/dL (74-106) H 01/02/23 05:09 Uric Acid 2.9 mg/dL (3.5-7.2) L 12/21/22 05:15 Calcium 8.4 mg/dL (8.5-10.1) L 01/02/23 05:09 Magnesium 2.1 mg/dL (1.6-2.4) 01/02/23 05:09 Creatine Kinase 61 U/L (39-308) 12/29/22 10:14 Troponin I High Sens 16.3 pg/mL (<58.9) 12/29/22 10:14 Albumin 2.4 g/dL (3.4-5.0) L 01/02/23 05:09 Prealbumin 15.9 mg/dL (20-40) L 01/02/23 05:09 Urine Color Yellow (Yellow) 12/18/22 14:50 Urine Clarity Clear (Clear) 12/18/22 14:50 Urine pH 5.0 (5.0-7.0) 12/18/22 14:50 Ur Specific [place] 1.025 (1.005-1.030) 12/18/22 14:50 Glucose (UA)(Auto) Negative (Negative) 12/18/22 14:50 Urine Ketones Negative (Negative) 12/18/22 14:50 Urine Blood Trace (Negative) H 12/18/22 14:50 Urine Nitrite Negative (Negative) 12/18/22 14:50 Urine Bilirubin Negative (Negative) 12/18/22 14:50 Urine Urobilinogen Normal (Normal) 12/18/22 14:50 Ur Leukocyte Esterase Negative José Luis/uL (Negative) 12/18/22 14:50 Urine RBC <5 /HPF (None Seen) 12/18/22 14:50 Urine WBC <5 /HPF (<5) 12/18/22 14:50 Ur Squamous Epith Cells <5 /HPF (None Seen) 12/18/22 14:50 U Non-Squamous Epi Cells <5 /HPF (None Seen) 12/18/22 14:50 Urine Bacteria None seen /HPF (<20) 12/18/22 14:50 Urine Mucus Slight /HPF (None Seen) 12/18/22 14:50 Urine Culture Reflexed Not needed 12/18/22 14:50 Urine Total Protein Trace (Negative) H 12/18/22 14:50 SARS-CoV-2 Rap RNA(RT-PCR) Positive (NEGATIVE) A 12/18/22 18:00 Weight: 149 lb 6.4 oz Wound Present: No Closed Surgical Incision Present: No Negative Pressure Wound Therapy Present: No Physician Update: His labs are stable. His cognition improved and he is doing well. His swallowing is now soft diet with thing liquid. Speech and cognitive issues have improved. Independent bed mobility, walking 600' with independent with steps. Independent with all ADLs with extended time for tasks. Will teach family to do wound care. Will do out patient physical therapy. Summary: Patient's care plan and pool hall inspector goals have been reviewed and revised as necessary. Please see the Rehabilitation Signature page for all necessary signatures.
[2023-01-03] MEDS: APIXABAN 5 MG TABLET PO SCH (09:00)
[2023-01-03] MEDS: CARBIDOPA/LEVODOPA 25/100 TAB PO SCH (09:17)
[2023-01-03] MEDS: MIDODRINE HCL 5 MG TABLET PO SCH (09:18)
[2023-01-03] MEDS: FOLIC ACID 1 MG TABLET PO SCH (09:19)
[2023-01-03] MEDS: ASCORBIC ACID 500 MG TABLET PO SCH (09:21)
[2023-01-03] MEDS: FE SULF/FA/VIT B COMP & C TAB PO SCH (09:21)
[2023-01-03] MEDS: FERROUS SULFATE 325 MG TAB PO SCH (09:21)
[2023-01-03] MEDS: CALCIUM 250 MG/VITAMIN D 125 IU TAB PO SCH (09:25)
[2023-01-03] MEDS: POLYVINYL ALCOHOL 1.4% 15 ML EACH EYE SCH (09:25)
[2023-01-03] MEDS: MEDIHONEY 44 ML TOPICAL TUBE TOP SCH (09:25)
[2023-01-03] MEDS: ENSURE ENLIVE 237 ML CAN PO SCH (10:46)
[2023-01-03] MEDS: JUVEN PACKET PO SCH (10:47)
[2023-01-03] MEDS: SODIUM CHLORIDE 1 GM TAB PO SCH (10:48)
--- NOTE | 2023-02-01 02:23 | DS ---
Date of Discharge: 01/03/2023 Discharge Diagnoses: Metabolic encephalopathy, which has resolved; Parkinson disease; pneumonia, res olved; COVID positivity treated with Paxlovid; chronic left eye pain treated by Ophthalmology. Discharge Condition: Good. Consultations: Mr. Kumar was seen by Dr. Shaun Ledesma from the Podiatry Service as he complained of pain in the feet and toes. He was diagnosed with tinea unguium. In addition, Dr. Ledesma noted genera lized arthrosclerosis. He did debridement of the nails at the bedside. Procedures While In Hospital: The patient had x-rays of his foot done on 12/20/2022 showing no acute osseous abnormality of the left foot. Incidental finding of [id number] degenerative changes i n the 4th metatarsal pharyngeal articulation. There was likely a small osteochondroma noted in the f irst metatarsal head. The patient had 2 chest x-rays. This study was on 12/21/2022 and was compared to a study on 12/13/2022 and it suggested the possibility of these bilateral scattered ill-defined o pacities being possible pneumonia. Repeat chest x-ray on 12/25/2022 showed slightly improved lung vo lumes, some persistent nodularity in the right upper lobe and left lung base. It could reflect seque lae of recently treated pneumonia depending on the patient's condition. Laboratory Data: White blood cell count 4.8, hemoglobin 10.2, hematocrit 33.7, and platelets 203. S odium 136, potassium 4.0, chloride 103, carbon dioxide 30, BUN 36, creatinine 0.97, glucose ranged fr om 92 to 119, calcium 8.4, and magnesium 2.1. Prealbumin at discharge 15.9 on 01/23 and on 3, it was very low at 9.5. COVID-19 test on the was positive. Urinalysis showed a trace of pro tein and trace of blood on the . Allergies: ALBUTEROL, BARIUM, GABAPENTIN, AND MYCIN DRUGS. Medications: On discharge are Tylenol 650 every 6 hours as needed, amiodarone 200 mg twice daily, he did receive amoxicillin 875-125 from 12/18 to 12/21, Eliquis 5 mg twice daily Artificial Tears 2 ann-marie ps in each eye 4 times daily as needed, vitamin C 500 mg daily, aspirin 81 mg daily, Lipitor 40 mg at bedtime, Os-Armond plus D 125 International Units twice daily, carbidopa/levodopa 25/100 one twice ejssica y, vitamin B12 injection 1 IM monthly and 1000 mg p.o. daily, Medihoney applied to open wound daily, ferrous sulfate 325 mg daily, and folate 1 mg daily. He did receive levofloxacin 750 mg daily from 0 12/22/2022 to 12/28/2022, melatonin 3 mg at bedtime, midodrine 10 mg 3 times daily, Singulair 10 mg at bedtime, Hemocyte Plus 1 with breakfast, Ensure Enlive 237 mL twice daily, Protonix 40 mg daily, Sen okot-S 2 at bedtime, Flomax 0.4 mg daily, and Ultram 50 mg every 4 hours as needed. Hospital Course: Mr. Kumar was admitted as noted on 12/18/2022 with metabolic encephalopathy. He di d speech therapy and was treated aggressively in terms of pneumonia with antibiotics. Blood work did come back with normal white count and encephalopathy resolved. He has Parkinson's and was treated f or that. He was ambulating much better. He also had the pneumonia as noted and that did improve. Dileep e was positive for COVID when he came to the unit and he did receive Paxlovid and completed that cour se. He did have Eliquis 5 mg twice daily to reduce his risk of stroke and myocardial infarction and those did not occur. He did have some issues with the feet and wound along with pain in the toes. Dileep koo was seen by the geophysicist and as noted, it did have debridement at the bedside by Podiatry. He di d remain afebrile with normal white count throughout and kidney function remained normal throughout. He did improve moderate malnutrition from prealbumin of 9.5 up to 15.9 with protein supplementation and iron supplementation. He did have chronic mild anemia. At discharge, hemoglobin is 11.2 and at admission it was 12.4. Diet: Heart healthy. Equipment: Recommend a walker for home, a 3-in-1 and a shower chair. Progress Made With His Physical And Occupational Therapy Along With Speech Therapy: By discharge, Mr Josué Kumar was able to ambulate 600 feet on multiple surfaces that are uneven surfaces, tiled and carpet ed floors, and outdoors with good tolerance. He also ascended and descended 15 steps with good adela ance. He did meet all functional goals and was discharged with recommendation for outpatient therapy as he was doing so well and also for outpatient wound care and followup with Podiatry. Regarding sp eech therapy, his comprehension was independent and expression independent. He did have verbal fluen cy at 100%, word intelligibility was over 90%. There were no overt signs of aspiration with eating. With occupational therapy, eating was independent, upper and lower body dressing independent, and to ileting independent. It is recommended that he had reached his functional goals while inpatient and that he continue with halfway on outpatient basis. Again, discharge condition is good. LB/MODL Voice ID: [id number] Report ID: [id number]
== END 2023-01-03 11:30 | disposition home or self-care (01) | DRG 947 ==
LOC: 5TH 12-18 10:00
PROVIDERS: ADMIT Psychiatry & Neurology Neurology with Special Qualifications in Child Neurology; ATTEND Psychiatry & Neurology Neurology with Special Qualifications in Child Neurology
PROC: 0HBRXZZ Excision of Toe Nail, External Approach (ICD-10-PCS; principal; 2022-12-18)
PROC: 0HBRXZZ Excision of Toe Nail, External Approach (ICD-10-PCS; 2022-12-18)
PROC: 0HBRXZZ Excision of Toe Nail, External Approach (ICD-10-PCS; 2022-12-18)
PROC: 0HBRXZZ Excision of Toe Nail, External Approach (ICD-10-PCS; 2022-12-18)
PROC: 0HBRXZZ Excision of Toe Nail, External Approach (ICD-10-PCS; 2022-12-18)
PROC: 0HBRXZZ Excision of Toe Nail, External Approach (ICD-10-PCS; 2022-12-18)
PROC: 0HBRXZZ Excision of Toe Nail, External Approach (ICD-10-PCS; 2022-12-18)
PROC: 0HBRXZZ Excision of Toe Nail, External Approach (ICD-10-PCS; 2022-12-18)
PROC: 0HBRXZZ Excision of Toe Nail, External Approach (ICD-10-PCS; 2022-12-18)
PROC: 0HBRXZZ Excision of Toe Nail, External Approach (ICD-10-PCS; 2022-12-18)
DX: R53.81 Other malaise (principal); G93.41 Metabolic encephalopathy; J18.9 Pneumonia, unspecified organism; U07.1 COVID-19; J15.9 Unspecified bacterial pneumonia; I47.20 Ventricular tachycardia, unspecified; C34.90 Malignant neoplasm of unspecified part of unspecified bronchus or lung; N39.0 Urinary tract infection, site not specified; N17.9 Acute kidney failure, unspecified; E44.0 Moderate protein-calorie malnutrition; J44.9 Chronic obstructive pulmonary disease, unspecified; I25.10 Atherosclerotic heart disease of native coronary artery without angina pectoris; I48.91 Unspecified atrial fibrillation; J30.9 Allergic rhinitis, unspecified; E86.0 Dehydration; K59.00 Constipation, unspecified; N40.0 Benign prostatic hyperplasia without lower urinary tract symptoms; B35.1 Tinea unguium; I70.91 Generalized atherosclerosis; D64.9 Anemia, unspecified; Z68.21 Body mass index [BMI] 21.0-21.9, adult; Z95.1 Presence of aortocoronary bypass graft; Z87.891 Personal history of nicotine dependence
CPT/HCPCS: 36415; 71045; 80048; 81001; 82040; 82550; 83735; 84134; 84484; 84550; 85025; 87086; 87088; 92507; 92523; 92526; 92610; 93005; 97110; 97116; 97129; 97140; 97161; 97165; 97530; 97542; J3420; J7030; U0003

== ENCOUNTER 2024-05-29 16:19 | Inpatient (IN) | payer OTHER ==
[2024-05-29] MEDS ORDERED: NA CHLORIDE 0.9% 100 ML ONE (18:22)
[2024-05-29] MEDS ORDERED: Meropenem 1000 MG/VIAL IV ONE (18:22)
[2024-05-29 18:28] LABS: Absolute Basophils 0.1 K/uL (0-0.5); Absolute Eosinophils 0.3 K/uL (0-0.5); Absolute Lymphocytes (CBC) 1.4 K/uL (0.7-4.9); Absolute Neutrophil 7.4 K/uL (1.8-8.0); Basophils % 0.7 % (0-1.3); Eosinophils % 2.6 % (0-4.4); Hematocrit 40.5 % (39.6-49.0); Hemoglobin 13.5 g/dL (13.6-17.9); MCH 30.6 pg (27.0-35.0); MCHC 33.3 g/dL (32.0-36.0); MPV 6.5 fL (7.6-11.3); Monocytes % 9.7 % (3.3-12.3); Platelets 339 thou/uL (152-406); Red Cell Distribution Width 13.2 % (12.1-15.2)
[2024-05-29 18:43] LABS: Albumin 3.4 g/dL (3.4-5.0); Albumin/Globulin Ratio 1.1 (1.1-1.8); Anion Gap 6.1 mEq/L (5.0-15.0); Bilirubin Total 1.6 mg/dL (0.2-1.0); Globulin 3.2 g/dL (2.3-3.5); Potassium 3.1 mEq/L (3.5-5.1); Protein, Total 6.6 g/dL (6.4-8.2)
--- NOTE | 2024-05-29 18:55 | ER ---
Nurse's Notes [facility] Name: David Kumar Age: 78 yrs Sex: Male : 1945 Arrival Date: 05/29/2024 Time: 16:19 Bed 6 Private MD: Diagnosis: UTI;Encounter for Hall catheter care Presentation: 05/29 17:16 Chief complaint: Patient states: Pt states his urinary catheter is coming out. Pt hb states he has intermittent pain in the area. Coronavirus screen: At this time, the client does not indicate any symptoms associated with coronavirus-19. Ebola Screen: No symptoms or risks identified at this time. Initial Sepsis Screen: Does the patient meet any 2 criteria? No. Patient's initial sepsis screen is negative. Does the patient have a suspected source of infection? No. Patient's initial sepsis screen is negative. Risk Assessment: Do you want to hurt yourself or someone else? Patient reports no desire to harm self or others. Onset of symptoms was May 28, 2024. 17:16 Method Of Arrival: Wheelchair 17:16 Acuity: CHRISTIANO 3 hb Triage Assessment: 17:23 General: Appears in no apparent distress. Behavior is calm, cooperative. Pain: hb Complains of pain in pelvis. EENT: No signs and/or symptoms were reported regarding the EENT system. Neuro: Level of Consciousness is awake, alert, obeys commands, Oriented to person, place, time, situation. Cardiovascular: Capillary refill < 3 seconds Patient's skin is warm and dry. Respiratory: Airway is patent Respiratory effort is even, unlabored, Respiratory pattern is regular, symmetrical. GI: No signs and/or symptoms were reported involving the gastrointestinal system. : Reports urinary catheter is coming out. Derm: No signs and/or symptoms reported regarding the dermatologic system. Musculoskeletal: No signs and/or symptoms reported regarding the musculoskeletal system. Historical: - Allergies: 17:21 Albuterol; hb 17:21 barium sulfate; hb 17:21 GABAPENTIN; hb - PMHx: 17:21 CAD; Ulcers; stage 1 lung cancer; COPD; hb - PSHx: 17:21 Cholecystectomy; hernia repair; quadruple bypass (Ulce); hb - Immunization history:: Adult Immunizations unknown. - Infectious Disease History:: Denies. - Social history:: Smoking status: Patient/guardian denies using tobacco, the patient reports quitting approximately 16 years ago. - Family history:: not pertinent. Screenin:[address] [facility] ED Fall Risk Assessment (Adult) History of falling in the last 3 months, ko1 including since admission No falls in past 3 months (0 pts) Confusion or Disorientation No (0 pts) Intoxicated or Sedated No (0 pts) Impaired Gait Yes (1 pt) Mobility Assist Device Used Yes (1 pt) Altered Elimination No (0 pt) Score/Fall Risk Level 0 - 2 = Low Risk Oriented to surroundings, Maintained a safe environment, Educated pt \T\ family on fall prevention, incl call for assistance when getting out of bed, Assessed \T\ reinforced patient's understanding of fall precautions, Provided non-skid footwear, Hourly rounding (assess needs \T\ fall precautionary measures) done. Abuse screen: Denies threats or abuse. Denies injuries from another. Nutritional screening: No deficits noted. Tuberculosis screening: No symptoms or risk factors identified. Assessment: 18:46 General: Appears in no apparent distress. unkempt, Behavior is calm, cooperative, ko1 appropriate for age. Pain: Denies pain. Neuro: No deficits noted. Cardiovascular: No deficits noted. Respiratory: No deficits noted. GI: No deficits noted. : Reports catheter is coming out. EENT: No deficits noted. Derm: No deficits noted. Musculoskeletal: No deficits noted. 19:15 General: Appears in no apparent distress. Behavior is calm, cooperative, appropriate al5 for age. Pain: Denies pain. Neuro: No deficits noted. Cardiovascular: No deficits noted. Respiratory: Airway is patent Trachea midline Respiratory effort is even, unlabored, Respiratory pattern is regular. GI: No deficits noted. : Hall in place. EENT: No deficits noted. Derm: Skin is intact, Skin is dry, Skin is normal. Vital Signs: 17:16 BP 117 / 78; Pulse 88; Resp 16; Temp 98.1(O); Pulse Ox 96% on R/A; Weight 68.95 kg; hb Height 5 ft. 10 in. ; Pain 2/10; 18:49 BP 108 / 70; Pulse 75; Resp 16; Pulse Ox 98% on R/A; ko1 19:15 BP 124 / 78; Pulse 73; Resp 18; Temp 98.2; Pulse Ox 97% on R/A; al5 17:16 Body Mass Index 21.81 (68.95 kg, 177.8 cm) hb 17:16 Pain Scale: Adult hb Jack Coma Score: 19:15 Eye Response: spontaneous(4). Motor Response: obeys commands(6). Verbal Response: al5 oriented(5). Total: 15. ED Course: 16:24 Patient arrived in ED. ts1 16:25 Kendall Kirk MD is Attending Physician. rt 17:21 Triage completed. hb 17:24 Arm band placed on right wrist. hb 17:48 Ginny Arguello, RN is Primary Nurse. ko1 18:20 CMP Sent. ko1 18:20 CBC with Diff Sent. ko1 18:20 Initial lab(s) drawn, by me, sent to lab. Inserted saline lock: 20 gauge in left ko1 antecubital area, using aseptic technique. Blood collected. Flushed with 10 mL NS. 18:30 Hall cath removed intact, balloon deflated. ko1 18:40 Hall cath inserted, using sterile technique, 18 Fr., by me, balloon inflated, to ko1 gravity drainage. 18:46 Patient has correct armband on for positive identification. Allergy band placed. Fall ko1 risk band placed. Placed in gown. Bed in low position. Call light in reach. Side rails up X2. Provided Education on: labs, meds. Pulse ox on. NIBP on. Door closed. Noise minimized. Lights dimmed. Warm blanket given. Pillow given. 18:46 No provider procedures requiring assistance completed. ko1 18:54 Truong Almeida MD is Hospitalizing Provider. rt 19:15 Awaiting bed assignment. al5 19:15 Warm blanket given. al5 20:36 Flushed left antecubital saline lock Patient admitted, IV remains in place. intact, No al5 redness/swelling at site. Administered Medications: 18:25 Drug: Meropenem IV 1 grams IV at calculated rate once; (mix in NS 100 mL) Route: IV; ko1 Rate: calculated rate; Site: left antecubital; 20:43 Follow up: Response: No adverse reaction; IV Status: Completed infusion; IV Intake: al5 100ml Medication: 18:46 VIS not applicable for this client. ko1 Intake: 20:43 IV: 100ml; Total: 100ml. al5 Output: 18:49 Urine: 250ml (Hall); Total: 250ml. ko1 Outcome: 18:54 Decision to Hospitalize by Provider. rt 20:41 Admitted to Med/surg accompanied by tech, via stretcher, al5 20:41 Condition: stable 20:41 Instructed on the need for admit, 20:46 Patient left the ED. al5 Signatures: Sol Long RN RN hb Ginny Arguello RN RN ko1 Kendall Kirk MD MD rt [place] Wisdom, PAS PAS ts1 iNcky Mcclelland RN RN al5 Corrections: (The following items were deleted from the chart) 17:24 17:21 Social history: Smoking status: hb hb
--- NOTE | 2024-05-29 18:55 | EDPHYS ---
Physician Documentation [facility] Name: David Kumar Age: 78 yrs Sex: Male : 1945 Arrival Date: 05/29/2024 Time: 16:19 Bed 6 Private MD: ED Physician Kendall Kirk HPI: 05/29 19:30 This 78 yrs old Male presents to ER via Wheelchair with complaints of Problem With rt Urinary Catheter. 19:30 Patient was recently seen in the emergency department for UTI, was prescribed Cipro. rt Patient has a Hall catheter in place, states that it pulled out he has pain to the area. Of note, cultures resulted today with an Enterococcus that is susceptible to only meropenem. Denies other acute complaints at this time, symptoms are moderate in severity, no other aggravating or alleviating factors.. Historical: - Allergies: 17:21 Albuterol; hb 17:21 barium sulfate; hb 17:21 GABAPENTIN; hb - PMHx: 17:21 CAD; Ulcers; stage 1 lung cancer; COPD; hb - PSHx: 17:21 Cholecystectomy; hernia repair; quadruple bypass (Ulce); hb - Immunization history:: Adult Immunizations unknown. - Infectious Disease History:: Denies. - Social history:: Smoking status: Patient/guardian denies using tobacco, the patient reports quitting approximately 16 years ago. - Family history:: not pertinent. ROS: 19:30 Constitutional: Negative for fever, chills, and weight loss, Cardiovascular: Negative rt for chest pain, palpitations, and edema, Respiratory: Negative for shortness of breath, cough, wheezing, and pleuritic chest pain, Abdomen/GI: Negative for abdominal pain, nausea, vomiting, diarrhea, and constipation, Skin: Negative for injury, rash, and discoloration, Neuro: Negative for headache, weakness, numbness, tingling, and seizure, 19:30 : Positive for Pain with Hall catheter, Exam: 19:30 Constitutional: This is a well developed, well nourished patient who is awake, alert, rt and in no acute distress. Head/Face: Normocephalic, atraumatic. Chest/axilla: Normal chest wall appearance and motion. Nontender with no deformity. No lesions are appreciated. Cardiovascular: Regular rate and rhythm with a normal S1 and S2. No gallops, murmurs, or rubs. Normal PMI, no JVD. No pulse deficits. Respiratory: Lungs have equal breath sounds bilaterally, clear to auscultation and percussion. No rales, rhonchi or wheezes noted. No increased work of breathing, no retractions or nasal flaring. Abdomen/GI: Soft, non-tender, with normal bowel sounds. No distension or tympany. No guarding or rebound. No evidence of tenderness throughout. Skin: Warm, dry with normal turgor. Normal color with no rashes, no lesions, and no evidence of cellulitis. MS/ Extremity: Pulses equal, no cyanosis. Neurovascular intact. Full, normal range of motion. Neuro: Awake and alert, GCS 15, oriented to person, place, time, and situation. Cranial nerves II-XII grossly intact. Motor strength 5/5 in all extremities. Sensory grossly intact. Cerebellar exam normal. Normal gait. 19:30 : Hall catheter somewhat retracted, no other swelling noted., Vital Signs: 17:16 BP 117 / 78; Pulse 88; Resp 16; Temp 98.1(O); Pulse Ox 96% on R/A; Weight 68.95 kg; hb Height 5 ft. 10 in. ; Pain 2/10; 18:49 BP 108 / 70; Pulse 75; Resp 16; Pulse Ox 98% on R/A; ko1 19:15 BP 124 / 78; Pulse 73; Resp 18; Temp 98.2; Pulse Ox 97% on R/A; al5 17:16 Body Mass Index 21.81 (68.95 kg, 177.8 cm) hb 17:16 Pain Scale: Adult hb Jack Coma Score: 19:15 Eye Response: spontaneous(4). Motor Response: obeys commands(6). Verbal Response: al5 oriented(5). Total: 15. MDM: 17:44 Patient medically screened. rt 19:30 Differential Diagnosis Multidrug-resistant UTI, mechanical complication of Hall rt catheter. Data reviewed: vital signs, nurses notes, lab test result(s). Consideration of Admission/Observation Patient was admitted/placed on observation. Management of patient was discussed with the following: Hospitalist: Agrees to admit. I considered the following discharge prescriptions or medication management in the emergency department Medications were administered in the Emergency Department. See MAR. Test considered but Not performed: CT: No focal abdominal tenderness, CT scan is not indicated. External Records Reviewed: Reviewed microbiology reports. Care significantly affected by the following chronic conditions: Chronic Obstructive Pulmonary Disease. Counseling: I had a detailed discussion with the patient and/or guardian regarding the historical points, exam findings, and any diagnostic results supporting the discharge/admit diagnosis, lab results, the need for further work-up and treatment in the hospital. Response to treatment: the patient's symptoms have mildly improved after treatment. 05/29 18:00 Order name: CBC with Diff; Complete Time: 18:44 rt 05/29 18:00 Order name: CMP; Complete Time: 18:44 rt 05/29 19:16 Order name: Urinalysis w/ reflexes EDID 05/29 19:17 Order name: CBC with Automated Diff EDID 05/29 19:17 Order name: CBC with Automated Diff EDID 05/29 19:17 Order name: Comprehensive Metabolic Panel EDID 05/29 19:17 Order name: Comprehensive Metabolic Panel [facility] 05/29 18:00 Order name: Hall; Complete Time: 18:43 rt Administered Medications: 18:25 Drug: Meropenem IV 1 grams IV at calculated rate once; (mix in NS 100 mL) Route: IV; ko1 Rate: calculated rate; Site: left antecubital; 20:43 Follow up: Response: No adverse reaction; IV Status: Completed infusion; IV Intake: al5 100ml Disposition Summary: 05/29/24 18:54 Hospitalization Ordered Notes: Hospitalization Status: Inpatient Admission rt Provider: Truong Almeida rt Location: Telemetry/[facility] (Inpatient) rt Condition: Stable rt Problem: new rt Symptoms: are unchanged rt Bed/Room Type: Standard rt Room Assignment: 403(05/29/24 19:24) kl Diagnosis - UTI rt - Encounter for Hall catheter care rt Forms: - Medication Reconciliation Form rt - SBAR form rt - Leadership Thank You Letter rt Signatures: Dispatcher Jessica Dubose RN RN kl Baxter, Heather, RN RN hb Oliver, Kathy, RN RN ko1 Kendall Kirk MD MD rt Nicky Mcclelland RN al5 Corrections: (The following items were deleted from the chart) 17:24 17:21 Social history: Smoking status: hb hb 18:01 18:01 CBC+H.LAB.BRZ ordered. EDMS EDMS 18:01 18:01 COMPREHENSIVE METABOLIC PANEL+C.LAB.BRZ ordered. EDMS EDMS 19:24 18:54 rt kl
[2024-05-29] MEDS ORDERED: ONDANSETRON 4 MG/2 ML VIAL IV PRN (19:12)
--- NOTE | 2024-05-29 19:16 | P.HP ---
Certification for Inpatient Patient admitted to: Inpatient With expected LOS: >2 Midnights Practitioner: I am a practitioner with admitting privileges, knowledge of patient current condition, hospital course, and medical plan of care. Services: Services provided to patient in accordance with Admission requirements found in Title 42 Section 412.3 of the Code of Federal Regulations Patient History Date of Service: 05/30/24 Reason for admission: UTI History of Present Illness: 78 yrs old Male with past medical history of hypertension, CAD status post quadruple bypass, GERD, lung cancer, COPD, hernia repair brought to ER with dysuria and having problems with Hall catheter . Patient was recently seen in the emergency department for UTI, was prescribed Cipro . Patient has a Hall catheter in place, states that it pulled out and that he has pain to the area. Cultures resulted with an Enterococcus that is susceptible to only meropenem. No fever or chills. No nausea vomiting or diarrhea. Patient was assessed in the ER and had replaced Hall catheter and started on IV antibiotic for further management. Allergies albuterol Allergy (Verified 01/09/23 11:57) Anaphylaxis barium sulfate Allergy (Verified 01/09/23 11:57) Anaphylaxis gabapentin Allergy (Verified 01/09/23 11:57) Itching mycin drugs Allergy (Uncoded 01/09/23 11:57) Nausea/Vomiting Home medications list reviewed: Yes Home Medications: Atorvastatin Calcium 40 mg PO BEDTIME 12/13/22 Carboxymethylcellulose Sodium [Artificial Tears] 2 gtts OP QID 12/13/22 Cyanocobalamin (Vitamin B-12) [Cyanocobalamin Injection] 1 ml IM SEECOM 12/13/22 Folic Acid 1 mg PO DAILY 12/13/22 Galantamine HBr [Galantamine ER] 16 mg PO DAILY 12/13/22 Montelukast Sodium 10 mg PO BEDTIME 12/13/22 Omeprazole 20 mg PO DAILY 12/13/22 Tamsulosin [Flomax*] 0.4 mg PO BEDTIME 12/13/22 Apixaban [Eliquis] 5 mg PO BID 12/16/22 Midodrine HCl [Proamatine*] 10 mg PO TID tab 12/16/22 Amiodarone HCl 100 mg PO BID 12/29/22 Calcium Carbonate/Vitamin D3 [[id number] D 125 Iu Tab*] 1 tab PO BID #60 tab 01/02/23 Carbidopa/Levodopa 25-100 [Sinemet 25-100*] 1 tab PO BID #60 tab 01/02/23 Iron/FA/Vit B-Com W/C [Hemocyte Plus*] 1 tab PO DAILY WITH BREAKFAST #30 tab 01/02/23 Medihoney [Medihoney Woundcare Gel*] 1 appl TOP DAILY #0 tube 01/02/23 Sodium Chloride Tab [Sodium Chloride*] 1 gm PO BIDWM #60 tab 01/02/23 - Past Medical/Surgical History Diabetic: No Past Medical History: Reviewed- Non-Contributory -: COPD -: CAD -: Lung Cancer Past Surgical History: Reviewed- Non-Contributory -: CABG -: gallbladder - Social History Smoking Status: Former smoker Alcohol use: No CD- Drugs: No Caffeine use: No Review of Systems 10-point ROS is otherwise unremarkable Physical Examination - Vital Signs Temperature: 98.1 F Blood Pressure: 116/72 Pulse: 88 Respirations: 18 Pulse Ox (%): 94 - Physical Exam General: Alert, Oriented x3, Cachectic, Mild distress HEENT: Atraumatic, Normocephalic Neck: Supple Respiratory: Clear to auscultation bilaterally Cardiovascular: Regular rate/rhythm, Normal S1 S2, Edema Capillary refill: <2 Seconds Gastrointestinal: Soft and benign, W/out hepatosplenomegaly Musculoskeletal: No clubbing Integumentary: No rashes, No breakdown Neurological: Other (Alert Awal) Lymphatics: No axilla or inguinal lymphadenopathy Urinary: Bladder distention - Studies Laboratory Data (last 24 hrs) 05/29/24 05/29/24 18:15 18:15 WBC 10.10 Hgb 13.5 L Hct 40.5 Plt Count 339 Sodium 139 Potassium 3.1 L BUN 17 Creatinine 1.25 Glucose 106 Total Bilirubin 1.6 H AST 14 L ALT 20 Alkaline Phosphatase 79 Assessment and Plan - Problems (Diagnosis) (1) UTI (urinary tract infection) Current Visit: No Status: Acute Plan: UTI with Enterococcus Cultures noted Started on meropenem Monitor closely. Hall catheter dislodgment Replaced in ER Still has some hematuria Monitor closely COPD Continue bronchodilators as needed Pain control Supportive management Continue antibiotics GI/DVT prophylaxis Advanced directive full code Discharge Plan: Home Plan to discharge in: 48 Hours - Advance Directives Does patient have a Living Will: No Does patient have a Durable POA for Healthcare: No - Code Status/Comfort Care Code Status: Full Code Time Spent Managing Pts Care (In Minutes): 48
[2024-05-29] MEDS ORDERED: Meropenem 500 MG in NA CHLORIDE 0.9% 100 ML IV SCH (20:00)
[2024-05-29] MEDS: NA CHLORIDE 0.9% 1,000 ML IV SCH (22:09)
[2024-05-30] MEDS: Meropenem 500 MG in NA CHLORIDE 0.9% 100 ML IV SCH ×2 (00:57→11:03)
[2024-05-30 05:58] LABS: Absolute Basophils 0.1 K/uL (0-0.5); Absolute Eosinophils 0.3 K/uL (0-0.5); Absolute Lymphocytes (CBC) 1.5 K/uL (0.7-4.9); Absolute Monocytes 0.7 K/uL (0.1-1.3); Absolute Neutrophil 4.3 K/uL (1.8-8.0); Basophils % 0.9 % (0-1.3); Eosinophils % 4.7 % (0-4.4); Hematocrit 33.2 % (39.6-49.0); Hemoglobin 11.7 g/dL (13.6-17.9); Lymphocytes % 21.8 % (15.3-44.8); MCH 32.1 pg (27.0-35.0); MCHC 35.3 g/dL (32.0-36.0); MPV 6.2 fL (7.6-11.3); Monocytes % 10.5 % (3.3-12.3); Neutrophils % 62.1 % (41.7-73.7); Nucleated Red Blood Cells % 0.3 % (0-0); Platelets 319 thou/uL (152-406); RBC Red Blood Cell Count 3.65 M/uL (4.33-5.43); Red Cell Distribution Width 13.6 % (12.1-15.2)
[2024-05-30 06:16] LABS: Albumin 2.4 g/dL (3.4-5.0); Alkaline Phosphatase 60 U/L (45-117); BUN Blood Urea Nitrogen 15 mg/dL (7-18); Bicarbonate 32 mEq/L (21-32); Bilirubin Total 1.2 mg/dL (0.2-1.0); Globulin 2.5 g/dL (2.3-3.5); Glomerular Filtration Rate 74 ml/min (=/>90); Glucose Level 93 mg/dL (74-106); Protein, Total 4.9 g/dL (6.4-8.2); Sodium Level 141 mEq/L (136-145)
[2024-05-30 06:20] LABS: ALT/SGPT < 14 U/L (16-61); AST/SGOT < 10 U/L (15-37)
[2024-05-30] MEDS: POTASSIUM CL SA 10 MEQ TAB PO ONE (08:03)
[2024-05-30] MEDS: ENOXAPARIN 40 MG/0.4 ML SQ SCH (08:04)
--- NOTE | 2024-05-30 15:37 | P.PN ---
Subjective Date of Service: 05/30/24 Chief Complaint: UTI Patient has no new complain. Urine color has improved, cleared of blood stain. Patient denies any pain. Physical Examination - Vital Signs Temperature: 98.3 F Blood Pressure: 100/64 Pulse: 65 Respirations: 20 Pulse Ox (%): 95 - Studies Laboratory Data (last 24 hrs) 05/29/24 05/29/24 18:15 18:15 WBC 10.10 Hgb 13.5 L Hct 40.5 Plt Count 339 Sodium 139 Potassium 3.1 L BUN 17 Creatinine 1.25 Glucose 106 Total Bilirubin 1.6 H AST 14 L ALT 20 Alkaline Phosphatase 79 Assessment And Plan - Plan Physical examination General: Alert and oriented x3, NAD, HEENT: Conjunctiva not pale, anicteric sclera Neck: Supple, no elevated JVD Heart: Heart sounds 1 and 2 normal, regular rhythm, normal rate, no pedal edema Lungs: Clear to auscultation bilaterally, adequate breath sounds bilaterally, no rhonchi or crackles. Abdomen: Soft, nondistended, nontender, normal bowel sounds. Extremities: No tenderness, no deformity Skin: Normal skin turgor, no rash, no nodules or ulcers. Neuro: No focal motor deficit. Normal speech. Psychiatry: Normal mood, no agitation. Plan: UTI secondary to indwelling Hall catheter Urine culture isolated Enterococcus, Enterobacter and Pseudomonas Organisms are sensitive to meropenem. Hall catheter replaced in the ED COPD Continue bronchodilators as needed DVT prophylaxis: Lovenox Advanced directive full code
[2024-05-30] MEDS: Meropenem 1,000 MG in NA CHLORIDE 0.9% 100 ML IV SCH (16:31)
[2024-05-31] MEDS: DIPHENHYDRAMINE 25 MG TAB/CAP PO PRN (01:30)
[2024-05-31 06:52] LABS: Anion Gap 6.4 mEq/L (5.0-15.0); Potassium 3.4 mEq/L (3.5-5.1)
[2024-05-31] MEDS: POTASSIUM CL SA 10 MEQ TAB PO ONE (09:06)
--- NOTE | 2024-05-31 16:06 | P.PN ---
Subjective Date of Service: 05/31/24 Chief Complaint: UTI Patient has no new complain. No hematuria. No reported fever Patient denies any pain. Physical Examination - Vital Signs Temperature: 98.2 F Blood Pressure: 131/73 Pulse: 63 Respirations: 18 Pulse Ox (%): 96 Assessment And Plan - Plan Physical examination General: Alert and oriented x3, NAD, HEENT: Anicteric sclera Neck: Supple, no elevated JVD Heart: Heart sounds 1 and 2 normal, regular rhythm, normal rate, no pedal edema Lungs: Clear to auscultation bilaterally, adequate breath sounds bilaterally, no rhonchi or crackles. Abdomen: Soft, nondistended, nontender, normal bowel sounds. Extremities: No tenderness, no deformity Skin: Normal skin turgor, no rash, no nodules or ulcers. Neuro: No focal motor deficit. Normal speech. Psychiatry: Normal mood, no agitation. Plan: UTI secondary to indwelling Hall catheter Urine culture isolated Enterococcus, Enterobacter and Pseudomonas Organisms are sensitive to meropenem. Hall catheter replaced in the ED. PICC line placed for outpatient IV Meropenem. Patient to complete 2 weeks of antibiotics. Social service assisting with outpatient IV antibiotics arrangement. COPD Continue bronchodilators as needed DVT prophylaxis: Lovenox Advanced directive full code Disposition: Clinically stable for discharge pending outpatient antibiotic arrangement.
[2024-06-01 05:48] LABS: Absolute Basophils 0.1 K/uL (0-0.5); Absolute Eosinophils 0.5 K/uL (0-0.5); Absolute Lymphocytes (CBC) 1.2 K/uL (0.7-4.9); Absolute Monocytes 0.5 K/uL (0.1-1.3); Absolute Neutrophil 4.3 K/uL (1.8-8.0); Basophils % 0.9 % (0-1.3); Eosinophils % 7.1 % (0-4.4); Hematocrit 36.5 % (39.6-49.0); Hemoglobin 12.3 g/dL (13.6-17.9); Lymphocytes % 18.2 % (15.3-44.8); MCH 31.2 pg (27.0-35.0); MCHC 33.7 g/dL (32.0-36.0); MCV 92.4 fL (80-100); MPV 6.5 fL (7.6-11.3); Monocytes % 7.9 % (3.3-12.3); Neutrophils % 65.9 % (41.7-73.7); Nucleated Red Blood Cells % 0.3 % (0-0); Platelets 316 thou/uL (152-406); RBC Red Blood Cell Count 3.95 M/uL (4.33-5.43); Red Cell Distribution Width 13.3 % (12.1-15.2)
[2024-06-01 05:59] LABS: Anion Gap 4.9 mEq/L (5.0-15.0); Potassium 3.9 mEq/L (3.5-5.1)
[2024-06-01] MEDS: POTASSIUM CL SA 10 MEQ TAB PO ONE ×2 (08:58→09:00)
--- NOTE | 2024-06-01 09:59 | P.PN ---
Date of Service: 06/01/24 Subjective: no new /worsening symptoms feeling ok ROS: 10 point ROS as noted above, otherwise negative Physical Exam: GEN: Alert, oriented, NAD HEENT: Normal conjunctiva, sclera anicteric, CV: Regular rate and rhythm, no edema Pulm: Nonlabored respirations on room air, clear bilaterally ABD: soft, nontender, nondistended Integumentary: No rashes Neuro: Normal speech, normal affect taylor in place Problem List: UTI POA, secondary to indwelling Taylor catheter Nonsustained Vtach hx CAD s/p CABG COPD; chronic Hx lung cancer UTI POA, secondary to indwelling Taylor catheter urine culture from ER visit 05/24 grew multiple organisms - Enterococcus faecalis, Enterobacter cloaecae and Pseudomonas aeruginosa taylor initially placed ~3 weeks ago due to urinary retention. has not been able to see urology yett had taylor catheter replaced in the ED. Enterobacter MDR only sensitive to merrem PICC line placed for outpatient IV Meropenem. continue merrem (05/30-06/12) Patient to complete 2 weeks of merrem. (end date: ~06/12/24) Social service assisting with outpatient IV antibiotics arrangement. Nonsustained Vtach hx CAD s/p CABG had 5 sec run of nonsustained vtach overnight/this morning cardiology consulted COPD; chronic Continue bronchodilators as needed stable VTE: Lovenox Code: Full Dispo: Home pending outpatient IV antibiotics setup Time Spent Managing Pts Care (In Minutes): 45
[2024-06-02 04:58] LABS: Absolute Basophils 0.1 K/uL (0-0.5); Absolute Eosinophils 0.6 K/uL (0-0.5); Absolute Lymphocytes (CBC) 1.5 K/uL (0.7-4.9); Absolute Monocytes 0.6 K/uL (0.1-1.3); Basophils % 1.1 % (0-1.3); Eosinophils % 7.3 % (0-4.4); Hematocrit 38.5 % (39.6-49.0); Hemoglobin 13.1 g/dL (13.6-17.9); Lymphocytes % 19.8 % (15.3-44.8); MCH 31.2 pg (27.0-35.0); MCV 91.8 fL (80-100); MPV 6.5 fL (7.6-11.3); Monocytes % 7.3 % (3.3-12.3); Neutrophils % 64.5 % (41.7-73.7); Nucleated Red Blood Cells % 0.1 % (0-0); Platelets 298 thou/uL (152-406); RBC Red Blood Cell Count 4.19 M/uL (4.33-5.43); Red Cell Distribution Width 13.1 % (12.1-15.2)
[2024-06-02 05:07] LABS: Anion Gap 5.1 mEq/L (5.0-15.0); Magnesium 1.9 mg/dL (1.6-2.4); Potassium 4.1 mEq/L (3.5-5.1)
--- NOTE | 2024-06-02 08:36 | P.PN ---
Date of Service: 06/02/24 Subjective: no acute events overnight pending outpatient IV antibiotics setup stable ROS: 10 point ROS as noted above, otherwise negative Physical Exam: GEN: Alert, oriented, NAD HEENT: Normal conjunctiva, sclera anicteric, CV: Regular rate and rhythm, no edema Pulm: Nonlabored respirations on room air, clear bilaterally ABD: soft, nontender, nondistended Neuro: Normal speech, normal affect taylor in place Problem List: UTI POA, secondary to indwelling Taylor catheter Nonsustained Vtach hx CAD s/p CABG COPD; chronic Hx lung cancer UTI POA, secondary to indwelling Taylor catheter urine culture from ER visit 05/24 grew multiple organisms - Enterococcus faecalis, Enterobacter cloaecae and Pseudomonas aeruginosa taylor initially placed ~3 weeks ago due to urinary retention. has not been able to see urology yet had taylor catheter replaced in the ED - f/u urology as outpatient reports several months of urinary retention Enterobacter MDR only sensitive to merrem midline placed for IV merrem continue merrem (05/30-06/12) Patient to complete 2 weeks of merrem. (end date: ~06/12/24) Social service assisting with outpatient IV antibiotics arrangement. Nonsustained Vtach hx CAD s/p CABG had 5 sec run of nonsustained vtach yesterday. Monitor on telemetry Cardiology consulted started amiodarone 100 mg BID (06/02) consider echo to eval EF / stenosis will need to f/u outpatient for stress test COPD; chronic Continue bronchodilators as needed stable VTE: Lovenox Code: Full Dispo: Home pending outpatient IV antibiotics setup Time Spent Managing Pts Care (In Minutes): 35
[2024-06-02] MEDS: CYANOCOBALAMIN 1000MCG/ML INJ IM ONE (10:16)
--- NOTE | 2024-06-02 11:15 | P.CNS ---
Date of Consult: 06/02/24 Chief Complaint: NSVT History of Present Illness: Patient with PMH fo CAD s/p CABG x4, back in 2007, presented with UTI, while on tele, patient had a run of NSVT, patient denies having chest pain, no SOB, no ORDOÑEZ, no palpitations, no syncope, patient does not follow up with a cardiolo gist. Allergies albuterol Allergy (Verified 01/09/23 11:57) Anaphylaxis barium sulfate Allergy (Verified 01/09/23 11:57) Anaphylaxis gabapentin Allergy (Verified 01/09/23 11:57) Itching mycin drugs Allergy (Uncoded 01/09/23 11:57) Nausea/Vomiting Home Medications: NK [No Home Meds] 05/30/24 - Past Medical/Surgical History Diabetic: No -: COPD -: CAD -: Lung Cancer -: CABG -: gallbladder - Family History Brother Medical History: Heart disease, Diabetes Mother History Unknown: Yes - Social History Smoking Status: Unknown if ever smoked Alcohol use: No CD- Drugs: No Caffeine use: No Place of Residence: Home Review of Systems 10-point ROS is otherwise unremarkable Physical Examination Temp Pulse Resp BP Pulse Ox 98.0 F 61 23 H 145/68 H 96 06/02/24 08:00 06/02/24 08:00 06/02/24 08:00 06/02/24 08:00 06/02/24 08:00 General: Alert, In no apparent distress HEENT: Atraumatic, PERRLA, Mucous membr. moist/pink, EOMI, Sclerae nonicteric Neck: Supple, 2+ carotid pulse no bruit, No LAD, Without JVD or thyroid abnormality Respiratory: Clear to auscultation bilaterally, Normal air movement Cardiovascular: Regular rate/rhythm, Normal S1 S2 Gastrointestinal: Normal bowel sounds, No tenderness Musculoskeletal: No tenderness Integumentary: No rashes Neurological: Normal gait, Normal speech, Normal tone, Normal affect Lymphatics: No axilla or inguinal lymphadenopathy - Problems (1) NSVT (nonsustained ventricular tachycardia) Current Visit: Yes Status: Acute Plan: start patient on Amiodarone 100 mg po BID also start Metoprolol 25 mg po BID if BP permits correct and monitor electrolytes Patient need to follow up with cardiology as outpatient for possible stress test continue to monitor on telemetery (2) CAD (coronary artery disease) of artery bypass graft Current Visit: Yes Status: Acute Plan: continue ASA 81 mg daily continue Lipitor 40 mg daily get Echo (3) Atrial fibrillation Current Visit: No Status: Acute Plan: as above.
[2024-06-02] MEDS: AMIODARONE HCL 200 MG TAB PO SCH (12:24)
--- NOTE | 2024-06-03 11:13 | P.PN ---
Subjective Date of Service: 06/03/24 Chief Complaint: NSVT Subjective: No new changes, No C/O voiced, Tolerating diet, Ambulating, Improving Review of Systems 10-point ROS is otherwise unremarkable Physical Examination - Vital Signs Temperature: 97.7 F Blood Pressure: 128/83 Pulse: 66 Respirations: 17 Pulse Ox (%): 94 - Physical Exam General: Alert, In no apparent distress HEENT: Atraumatic, PERRLA, EOMI Neck: Supple, JVD not distended Respiratory: Clear to auscultation bilaterally, Normal air movement Cardiovascular: Regular rate/rhythm, Normal S1 S2 Gastrointestinal: Normal bowel sounds, No tenderness Musculoskeletal: No tenderness Integumentary: No rashes Neurological: Normal speech, Normal tone, Normal affect Lymphatics: No axilla or inguinal lymphadenopathy - Studies Medications List Reviewed: Yes Assessment And Plan - Current Problems (Diagnosis) (1) NSVT (nonsustained ventricular tachycardia) Current Visit: Yes Status: Acute Plan: continue Amiodarone 100 mg po BID also start Metoprolol 25 mg po BID if BP permits correct and monitor electrolytes Patient need to follow up with cardiology as outpatient for possible stress test continue to monitor on telemetery (2) CAD (coronary artery disease) of artery bypass graft Current Visit: Yes Status: Acute Plan: continue ASA 81 mg daily continue Lipitor 40 mg daily (3) Atrial fibrillation Current Visit: No Status: Acute Plan: as above.
--- NOTE | 2024-06-03 11:59 | P.PN ---
Date of Service: 06/03/24 Subjective: no acute events overnight pending outpatient IV antibiotics setup stable ROS: 10 point ROS as noted above, otherwise negative Physical Exam: GEN: Alert, oriented, NAD HEENT: Normal conjunctiva, sclera anicteric, CV: Regular rate and rhythm, no edema Pulm: Nonlabored respirations on room air, clear bilaterally ABD: soft, nontender, nondistended Neuro: Normal speech, normal affect taylor in place Problem List: UTI POA, secondary to indwelling Taylor catheter Nonsustained Vtach hx CAD s/p CABG COPD; chronic Hx lung cancer UTI POA, secondary to indwelling Taylor catheter urine culture from ER visit 05/24 grew multiple organisms - Enterococcus faecalis, Enterobacter cloaecae and Pseudomonas aeruginosa taylor initially placed ~3 weeks ago due to urinary retention. has not been able to see urology yet had taylor catheter replaced in the ED - f/u urology as outpatient reports several months of urinary retention Enterobacter MDR only sensitive to merrem midline placed for IV merrem continue merrem (05/30-06/12) Patient to complete 2 weeks of merrem. (end date: ~06/12/24) Social service assisting with outpatient IV antibiotics arrangement. Nonsustained Vtach hx CAD s/p CABG had 5 sec run of nonsustained vtach yesterday. Monitor on telemetry Cardiology consulted continue amiodarone 100 mg BID consider echo to eval EF / stenosis will need to f/u outpatient for stress test COPD; chronic Continue bronchodilators as needed stable VTE: Lovenox Code: Full Dispo: Home pending outpatient IV antibiotics setup Time Spent Managing Pts Care (In Minutes): 25
--- NOTE | 2024-06-04 11:07 | P.PN ---
Date of Service: 06/04/24 Subjective: seen this afternoon, reported had 5 loose BMs today hematuria started this afternoon felt chills, temp 99 no abdominal pain ROS: 10 point ROS as noted above, otherwise negative Physical Exam: GEN: Alert, oriented, NAD HEENT: Normal conjunctiva, sclera anicteric, CV: Regular rate and rhythm, no edema Pulm: Nonlabored respirations on room air, clear bilaterally ABD: soft, nontender, nondistended Neuro: Normal speech, normal affect taylor in place Problem List: UTI POA, secondary to indwelling Taylor catheter Nonsustained Vtach hx CAD s/p CABG COPD; chronic Hx lung cancer UTI POA, secondary to indwelling Taylor catheter urine culture from ER visit 05/24 grew multiple organisms - Enterococcus faecalis, Enterobacter cloaecae and Pseudomonas aeruginosa taylor initially placed ~3 weeks ago due to urinary retention. has not been able to see urology yet had taylor catheter replaced in the ED - f/u urology as outpatient reports several months of urinary retention Enterobacter MDR only sensitive to merrem midline placed for IV merrem continue merrem (05/30-06/12) Patient to complete 2 weeks of merrem. (end date: ~06/12/24) Social service assisting with outpatient IV antibiotics arrangement. Nonsustained Vtach hx CAD s/p CABG had 5 sec run of nonsustained vtach yesterday. Monitor on telemetry Cardiology consulted continue amiodarone 100 mg BID consider echo to eval EF / stenosis will need to f/u outpatient for stress test COPD; chronic Continue bronchodilators as needed stable VTE: Lovenox Code: Full Dispo: Home pending outpatient IV antibiotics setup Time Spent Managing Pts Care (In Minutes): 45
[2024-06-04 16:34] LABS: Absolute Basophils 0.1 K/uL (0-0.5); Absolute Eosinophils 0.2 K/uL (0-0.5); Absolute Lymphocytes (CBC) 0.8 K/uL (0.7-4.9); Absolute Monocytes 0.7 K/uL (0.1-1.3); Absolute Neutrophil 23.4 K/uL (1.8-8.0); Basophils % 0.6 % (0-1.3); Eosinophils % 0.7 % (0-4.4); Hematocrit 43.6 % (39.6-49.0); Hemoglobin 14.5 g/dL (13.6-17.9); Lymphocytes % 3.1 % (15.3-44.8); MCH 30.4 pg (27.0-35.0); MCHC 33.2 g/dL (32.0-36.0); MCV 91.6 fL (80-100); MPV 6.5 fL (7.6-11.3); Monocytes % 2.7 % (3.3-12.3); Neutrophils % 92.9 % (41.7-73.7); Nucleated Red Blood Cells % 0.1 % (0-0); Platelets 296 thou/uL (152-406); RBC Red Blood Cell Count 4.76 M/uL (4.33-5.43); Red Cell Distribution Width 13.4 % (12.1-15.2)
[2024-06-04 16:57] LABS: Albumin 3.1 g/dL (3.4-5.0); Albumin/Globulin Ratio 0.8 (1.1-1.8); Bilirubin Total 1.3 mg/dL (0.2-1.0); Globulin 3.8 g/dL (2.3-3.5); Magnesium 2.2 mg/dL (1.6-2.4); Protein, Total 6.9 g/dL (6.4-8.2)
[2024-06-04 17:09] LABS: Platelet Estimate ADEQ; White Blood Cell Scan OK (OK)
[2024-06-04 17:10] LABS: Blood Morphology Comment NOT SEEN (NOT SEEN)
[2024-06-04] MEDS: ACETAMINOPHEN 325 MG TABLET PO PRN (17:27)
[2024-06-04 18:37] LABS: Specific Gravity 1.017 (1.005-1.030); Sqamous Epithelial None Seen /HPF (None Seen); Urine Bacteria <20 /HPF (<20); Urine Bilirubin NEGATIVE (Negative); Urine Blood 3+ (OVER) (Negative); Urine Clarity Extremely Turbid (Clear); Urine Color Brown (Yellow); Urine Culture Reflex Order REFLEXED; Urine Glucose NEGATIVE (Negative); Urine Ketones NEGATIVE (Negative); Urine Microscopic Reflex YN ORDER UMIC; Urine Nitrite NEGATIVE (Negative); Urine Protein 1+ (Negative); Urine RBC >50 /HPF (None Seen); Urine Urobilinogen Normal (Normal); Urine WBC >50 /HPF (<5); Urine Yeast (Budding) Trace /HPF (None Seen); Urine pH 7.5 (5.0-7.0)
[2024-06-04] MEDS: VANCOMYCIN HCL 125 MG CAPSULE PO SCH (18:37)
--- NOTE | 2024-06-04 20:24 | P.PN ---
Date of Service: 06/04/24 Patient for sepsis evaluation Patient is currently doing good hemodynamically stable lactate levels are normal patient's vital signs are all stable he is here for presumed C. difficile infection he is on oral medication patient has some mild fever otherwise he is alert responsive cooperative labs reviewed his white count is mildly elevated
--- NOTE | 2024-06-04 20:44 | PN ---
Date of Progress Note: 06/04/2024 Subjective: Seen by bedside. No new changes. No chest pain, shortness of breath, orthopnea, or cou ghing. No other complaints. All other systems reviewed, they were negative. Physical Examination: Vital Signs: Reviewed. Head and Neck: Pupils are equal, reactive to light. Intact eye movements. No JVD. No cervical lym phadenopathy. Neck is supple. Thyroid is not enlarged. Lungs: Clear to auscultation bilaterally. No rhonchi, wheezing, or crackles. No accessory muscle u se. Heart: Irregular. No extra sounds. Abdomen: Soft, nontender. Bowel sounds positive. No organomegaly. No masses or hernia. No rigidi ty or rebound. Extremities: No edema, clubbing, or cyanosis. Intact pulses. Skin: No rash. No nodule. Neuro: Alert, awake, oriented x3. No acute focal deficits appreciated. Investigations: BUN is 12, creatinine 0.87, and hemoglobin is 13.1. Assessment/recommendation: 1.Atrial fibrillation with rapid ventricular response, improved. Continue amiodarone, however, incr ease the dose to 200 mg twice a day and recommend to start Eliquis 5 mg twice a day unless there is c ontraindication. 2.Nonsustained ventricular tachycardia, on amiodarone and metoprolol. There are no further episodes planned for ischemia workup which can be done as an outpatient. 3.Coronary artery disease with bypass graft. No chest pain. Plan for stress test as an outpatient. 4.UTI, on IV antibiotics. SR/MODL Voice ID: [id number] Report ID: [id number]
[2024-06-05 06:48] LABS: Absolute Basophils 0.3 K/uL (0-0.5); Absolute Eosinophils 0.1 K/uL (0-0.5); Absolute Lymphocytes (CBC) 1.2 K/uL (0.7-4.9); Absolute Monocytes 1.5 K/uL (0.1-1.3); Absolute Neutrophil 30.8 K/uL (1.8-8.0); Basophils % 0.9 % (0-1.3); Eosinophils % 0.2 % (0-4.4); Hematocrit 39.1 % (39.6-49.0); Hemoglobin 13.1 g/dL (13.6-17.9); Lymphocytes % 3.6 % (15.3-44.8); MCH 30.8 pg (27.0-35.0); MCHC 33.7 g/dL (32.0-36.0); MCV 91.6 fL (80-100); MPV 6.6 fL (7.6-11.3); Monocytes % 4.6 % (3.3-12.3); Neutrophils % 90.7 % (41.7-73.7); Nucleated Red Blood Cells % 0.1 % (0-0); Platelets 281 thou/uL (152-406); RBC Red Blood Cell Count 4.26 M/uL (4.33-5.43); Red Cell Distribution Width 13.4 % (12.1-15.2)
[2024-06-05 06:54] LABS: Albumin 2.9 g/dL (3.4-5.0); Albumin/Globulin Ratio 0.9 (1.1-1.8); Anion Gap 8.5 mEq/L (5.0-15.0); Bilirubin Total 2.3 mg/dL (0.2-1.0); Globulin 3.3 g/dL (2.3-3.5); Magnesium 2.1 mg/dL (1.6-2.4); Potassium 4.5 mEq/L (3.5-5.1); Protein, Total 6.2 g/dL (6.4-8.2)
[2024-06-05 07:45] VITALS: BMI 20.2
[2024-06-05] MEDS: NA CHLORIDE 0.9% 1,000 ML IV SCH (07:59)
--- NOTE | 2024-06-05 08:50 | RAD REPORT ---
EXAM DESCRIPTION: CTAbdomen Pelvis W Contrast - 06/05/2024 8:42 am CLINICAL HISTORY: Abdominal pain. diarrhea, uti, sepsis, ?colitis COMPARISON: Abdomen Pelvis W Contrast dated 05/15/2024 TECHNIQUE: Venous phase CT imaging of the abdomen and pelvis was performed with 100 ml non-ionic IV contrast. All CT scans are performed using dose optimization technique as appropriate and may include automated exposure control or mA/KV adjustment according to patient size. FINDINGS: Mild atelectasis is seen in the posterior left lung base. Motion artifact is present. Numerous cysts are present throughout the liver. The spleen, pancreas, ad renal glands and kidneys are within normal limits. Benign 6 cm right renal cyst. There is a large amount of stool throughout the colon. There is mild enhancement of the rectosigmoid colon suggesting colitis. No bowel obstruction, free fluid or free air. Aortoiliac atherosclerosis. No evidence of significant lymphadenopathy. Prostatic gland is significantly enlarged. No suspicious bony findings. IMPRESSION: Moderate stool retention with evidence of moderate colitis in the rectosigmoid colon. No free air, abscess or significant free fluid. No pneumatosis coli. Significantly enlarged prostate gland.
[2024-06-05 08:59] LABS: Atypical Lymphocytes 1 %; Blood Morphology Comment NOT SEEN (NOT SEEN); Differential Total Cells Count 100; Eosinophils 1 % (0-3); Lymphocytes 6 % (15-42); Monocytes 5 % (0-10); Platelet Estimate ADEQ; Segmented Neutrophils 87 % (40-80)
[2024-06-05] MEDS: AMIODARONE HCL 200 MG TAB PO SCH (09:24)
--- NOTE | 2024-06-05 09:40 | P.PN ---
Date of Service: 06/05/24 Subjective: 3 bowel movements overnight; none so far this morning hematuria continues but clearing up 101.5 fever yesterday pm. tolerated first initial oral vanc without issues but is now refusing d/t reported allergy refused PO vanc overnight. did take first dose without any side effects/allergy /reaction ROS: 10 point ROS as noted above, otherwise negative Physical Exam: GEN: Alert, oriented, tired appearing CV: Regular rate and rhythm, no edema Pulm: Nonlabored respirations on room air, mild cough ABD: soft, nontender, nondistended Neuro: Normal speech, normal affect taylor in place, maroon Problem List: UTI POA, secondary to indwelling Taylor catheter Hematuria, acute Diarrhea secondary to c.diff+ colitis Nonsustained Vtach, acute hx CAD s/p CABG COPD; chronic Hx lung cancer UTI POA, secondary to indwelling Taylor catheter Hematuria urine culture from ER visit 05/24 grew multiple organisms - Enterococcus faecalis, Enterobacter cloaecae and Pseudomonas aeruginosa taylor initially placed ~3 weeks ago due to urinary retention. has not been able to see urology yet had taylor catheter replaced in the ED - f/u urology as outpatient reports several months of urinary retention Enterobacter MDR only sensitive to merrem midline placed for IV merrem continue merrem (05/30-06/12) Patient to complete 2 weeks of merrem. (end date: ~06/12/24) Social service assisting with outpatient IV antibiotics arrangement. monitor hematuria, lovenox dc'd 06/04 improving Diarrhea secondary to c.diff+ Moderate Colitis CT abdomen (06/05): moderate stool retention with moderate colitis in rectosigmoid colon. No free air/abscess/free fluid. Significantly elevated prostate gland leukocytosis worsening starting 06/04; 7.7 -> 25.2 -> 33.9 became febrile around time labs back as well with SIRS 2/4 with new diarrhea follow blood and urine cx (06/04) on merrem since 05/30 C.diff+ confirmed 06/05 continue PO vanc for 10 days for c.diff (06/04-) tolerated first initial oral vanc yesterday without issues but is now refusing d/t reported allergy patient refused vanc last night due to concern for allergy / ineffectiveness he tolerated first dose last night at ~6pm without issue. on further discussion today, he states allergy to mycin. and ineffective treatment to prior infections. He denied any prior c diff i explained unlikely he has ever received oral vancomycin before, and after discussion his mycin allergy is to azithromycin / macrolides discussed his leukocytosis worsening and CT results of colitis patient and agreeable to PO vanc Nonsustained Vtach hx CAD s/p CABG had 5 sec run of nonsustained vtach earlier this week. No further episodes. Monitor on telemetry Cardiology consulted continue amiodarone; increased to 200 mg BID (06/05) consider echo to eval EF / stenosis will need to f/u outpatient for stress test COPD; chronic Continue bronchodilators as needed stable VTE: Lovenox dc'd 06/04 d/t hematuria Code: Full Dispo: Home, ~3-5 days c.diff Time Spent Managing Pts Care (In Minutes): 55
[2024-06-05 11:48] LABS: CDIFF INTERNAL NEG CONTROL White Background (WHITE BKGD); STOOL CONSISTENCY Liquid/Semi-Solid
[2024-06-05 11:49] LABS: C.diff Antigen/Toxin AG POS:TOX POS (NEG : NEG)
[2024-06-06 06:06] LABS: Absolute Basophils 0.1 K/uL (0-0.5); Absolute Eosinophils 0.1 K/uL (0-0.5); Absolute Monocytes 1.5 K/uL (0.1-1.3); Absolute Neutrophil 21.3 K/uL (1.8-8.0); Basophils % 0.5 % (0-1.3); Eosinophils % 0.4 % (0-4.4); Hematocrit 36.7 % (39.6-49.0); Hemoglobin 12.2 g/dL (13.6-17.9); Lymphocytes % 4.3 % (15.3-44.8); MCH 30.9 pg (27.0-35.0); MCHC 33.1 g/dL (32.0-36.0); MCV 93.2 fL (80-100); MPV 7.1 fL (7.6-11.3); Monocytes % 6.1 % (3.3-12.3); Neutrophils % 88.7 % (41.7-73.7); Platelets 212 thou/uL (152-406); RBC Red Blood Cell Count 3.94 M/uL (4.33-5.43); Red Cell Distribution Width 13.3 % (12.1-15.2)
[2024-06-06 06:20] LABS: Albumin 2.5 g/dL (3.4-5.0); Albumin/Globulin Ratio 0.8 (1.1-1.8); Alkaline Phosphatase 67 U/L (45-117); Anion Gap 5.9 mEq/L (5.0-15.0); BUN Blood Urea Nitrogen 23 mg/dL (7-18); Bicarbonate 30 mEq/L (21-32); Bilirubin Total 1.8 mg/dL (0.2-1.0); Glomerular Filtration Rate 84 ml/min (=/>90); Glucose Level 109 mg/dL (74-106); Potassium 3.9 mEq/L (3.5-5.1); Protein, Total 5.5 g/dL (6.4-8.2); Sodium Level 135 mEq/L (136-145)
[2024-06-06 06:25] LABS: ALT/SGPT < 14 U/L (16-61); AST/SGOT < 10 U/L (15-37)
[2024-06-06] MEDS: POTASSIUM 25 MEQ EFFERV TAB PO ONE (08:17)
--- NOTE | 2024-06-06 12:14 | P.PN ---
Date of Service: 06/06/24 Subjective: tolerating oral vanc without issues diarrhea improving; less volume and frequency low grade temps overnight urine clearing up ROS: 10 point ROS as noted above, otherwise negative Physical Exam: GEN: Alert, oriented, tired appearing CV: Regular rate and rhythm, no edema Pulm: Nonlabored respirations on room air, mild cough ABD: soft, nontender, nondistended Neuro: Normal speech, normal affect taylor in place, [place] in tubing Problem List: UTI POA, secondary to indwelling Taylor catheter Hematuria, acute Diarrhea secondary to c.diff+ colitis (moderate) Nonsustained Vtach, acute hx CAD s/p CABG COPD; chronic Hx lung cancer UTI POA, secondary to indwelling Taylor catheter Hematuria urine culture from ER visit 05/24 grew multiple organisms - Enterococcus faecalis, Enterobacter cloaecae and Pseudomonas aeruginosa taylor initially placed ~3 weeks ago due to urinary retention. has not been able to see urology yet had taylor catheter replaced in the ED - f/u urology as outpatient reports several months of urinary retention Enterobacter MDR only sensitive to merrem midline placed for IV merrem continue merrem (05/30-06/12) Patient to complete 2 weeks of merrem. (end date: ~06/12/24) Social service assisting with outpatient IV antibiotics arrangement. monitor hematuria, lovenox dc'd 06/04 improving, [place] coloring in tubing Diarrhea secondary to c.diff+ colitis (moderate) CT abdomen (06/05): moderate stool retention with moderate colitis in rectosigmoid colon. No free air/abscess/free fluid. Significantly elevated prostate gland C.diff+ confirmed 06/05 continue PO vanc for 10 days for c.diff (06/04-06/14) patient initially refused vanc due to concern for allergy / ineffectiveness. patient and agreeable to PO vanc after discussion /education has been tolerating vanc here without issues diarrhea improving; less volume and frequency Nonsustained Vtach hx CAD s/p CABG had 5 sec run of nonsustained vtach earlier this week. Monitor on telemetry Cardiology consulted continue amiodarone; increased to 200 mg BID (06/05) consider echo to eval EF / stenosis - will defer to cardiology given infxn risk getting echo machine in room will need to f/u outpatient for stress test COPD; chronic Continue bronchodilators as needed stable VTE: Lovenox dc'd 06/04 d/t hematuria Code: Full Dispo: Home, ~3 days c.diff Time Spent Managing Pts Care (In Minutes): 40
[2024-06-06] MEDS: CARBOXYMETHYLCELLULOSE SODIUM 0.5% 15 ML OPTH SCH (16:15)
[2024-06-06] MEDS: NA CHLORIDE 0.9% 500 ML IV ONE (16:55)
[2024-06-06] MEDS: NA CHLORIDE 0.9% 1,000 ML IV SCH (21:38)
[2024-06-07 06:44] LABS: Absolute Eosinophils 0.3 K/uL (0-0.5); Absolute Monocytes 1.3 K/uL (0.1-1.3); Absolute Neutrophil 13.8 K/uL (1.8-8.0); Basophils % 0.3 % (0-1.3); Eosinophils % 1.7 % (0-4.4); Hematocrit 36.3 % (39.6-49.0); Hemoglobin 12.4 g/dL (13.6-17.9); MCH 31.5 pg (27.0-35.0); MCHC 34.1 g/dL (32.0-36.0); MCV 92.2 fL (80-100); MPV 6.6 fL (7.6-11.3); Monocytes % 7.9 % (3.3-12.3); Neutrophils % 84.1 % (41.7-73.7); Platelets 226 thou/uL (152-406); RBC Red Blood Cell Count 3.94 M/uL (4.33-5.43); Red Cell Distribution Width 13.2 % (12.1-15.2)
[2024-06-07 07:08] LABS: Albumin 2.3 g/dL (3.4-5.0); Albumin/Globulin Ratio 0.7 (1.1-1.8); Anion Gap 5.8 mEq/L (5.0-15.0); Bilirubin Total 1.9 mg/dL (0.2-1.0); Globulin 3.1 g/dL (2.3-3.5); Magnesium 1.9 mg/dL (1.6-2.4); Potassium 3.8 mEq/L (3.5-5.1); Protein, Total 5.4 g/dL (6.4-8.2)
[2024-06-07] MEDS: POTASSIUM 25 MEQ EFFERV TAB PO ONE (07:59)
--- NOTE | 2024-06-07 22:30 | P.PN ---
Date of Service: 06/07/24 Subjective: tolerating oral vanc without issues diarrhea q1h last night slight improvement this morning overall feeling better, but dealing with frequent loose diarrhea ROS: 10 point ROS as noted above, otherwise negative Physical Exam: GEN: Alert, oriented CV: Regular rate and rhythm, no edema Pulm: Nonlabored respirations on room air, mild cough ABD: soft, nontender, nondistended Neuro: Normal speech, normal affect taylor in place, [place] in tubing Problem List: UTI POA, secondary to indwelling Taylor catheter Hematuria, acute Diarrhea secondary to c.diff+ colitis (moderate) Nonsustained Vtach, acute hx CAD s/p CABG COPD; chronic Hx lung cancer UTI POA, secondary to indwelling Taylor catheter Hematuria urine culture from ER visit 05/24 grew multiple organisms - Enterococcus faecalis, Enterobacter cloaecae and Pseudomonas aeruginosa taylor initially placed ~3 weeks ago due to urinary retention. has not been able to see urology yet had taylor catheter replaced in the ED - f/u urology as outpatient reports several months of urinary retention Enterobacter MDR only sensitive to merrem midline placed for IV merrem continue merrem (05/30-06/12) Patient to complete 2 weeks of merrem. (end date: ~06/12/24) Social service assisting with outpatient IV antibiotics arrangement. monitor hematuria, lovenox dc'd 06/04 improving, [place] coloring in tubing Diarrhea secondary to c.diff+ colitis (moderate) CT abdomen (06/05): moderate stool retention with moderate colitis in rectosigmoid colon. No free air/abscess/free fluid. Significantly elevated prostate gland C.diff+ confirmed 06/05 continue PO vanc for 10 days for c.diff (06/04-06/14) patient initially refused vanc due to concern for allergy / ineffectiveness. patient and agreeable to PO vanc after discussion /education has been tolerating vanc here without issues diarrhea improving; less volume and frequency Nonsustained Vtach hx CAD s/p CABG had 5 sec run of nonsustained vtach earlier this week. Monitor on telemetry Cardiology consulted continue amiodarone; increased to 200 mg BID (06/05) consider echo to eval EF / stenosis - will defer to cardiology given infxn risk getting echo machine in room will need to f/u outpatient for stress test COPD; chronic Continue bronchodilators as needed stable VTE: Lovenox dc'd 06/04 d/t hematuria Code: Full Dispo: Home, ~2-3 days c.diff Time Spent Managing Pts Care (In Minutes): 37
--- NOTE | 2024-06-08 11:51 | P.PN ---
Subjective Date of Service: 06/08/24 Chief Complaint: NSVT Subjective: No new changes, No C/O voiced, Tolerating diet, Ambulating, Improving Review of Systems 10-point ROS is otherwise unremarkable Physical Examination - Vital Signs Temperature: 98.6 F Blood Pressure: 90/58 Pulse: 63 Respirations: 17 Pulse Ox (%): 96 - Physical Exam General: Alert, In no apparent distress HEENT: Atraumatic, PERRLA, EOMI Neck: Supple, JVD not distended Respiratory: Clear to auscultation bilaterally, Normal air movement Cardiovascular: Regular rate/rhythm, Normal S1 S2 Gastrointestinal: Normal bowel sounds, No tenderness Musculoskeletal: No tenderness Integumentary: No rashes Neurological: Normal speech, Normal tone, Normal affect Lymphatics: No axilla or inguinal lymphadenopathy - Studies Medications List Reviewed: Yes Assessment And Plan - Current Problems (Diagnosis) (1) NSVT (nonsustained ventricular tachycardia) Current Visit: Yes Status: Acute Plan: continue Amiodarone 200 mg po BID Metoprolol 25 mg po correct and monitor electrolytes Patient need to follow up with cardiology as outpatient for possible stress test continue to monitor on telemetery (2) CAD (coronary artery disease) of artery bypass graft Current Visit: Yes Status: Acute Plan: continue ASA 81 mg daily continue Lipitor 40 mg daily (3) Atrial fibrillation Current Visit: No Status: Acute Plan: Eliquis 5 mg po BID Echo shows normal EF.
--- NOTE | 2024-06-08 12:01 | ECHO ---
HEIGHT: 5 ft 10 in WEIGHT: 140 lb 12.8 oz DATE OF STUDY: 06/08/[address]: Anselmo Caldwell MD 2-DIMENSIONAL: YES M.MODE: YES DOPPLER: YES COLOR FLOW: YES TDS: YES PORTABLE: YES DEFINITY: BUBBLE STUDY: DIAGNOSIS: NON-SUSTAINED VENTRICULAR TACHYCARDIA CARDIAC HISTORY: CATHERIZATION: YES SURGERY: CABG PROSTHETIC VALVE: PACEMAKER: MEASUREMENTS (cm) DIASTOLIC (NORMALS) SYSTOLIC (NORMALS) IVSd 1.2 (0.6-1.2) LA Diam 3.9 (1.9-4.0) LVEF 63% LVIDd 3.5 (3.5-5.7) LVIDs 2.3 (2.0-3.5) %FS 33% LVPWd 1.2 (0.6-1.2) Ao Diam 3.4 (2.0-3.7) 2 DIMENSIONAL ASSESSMENT: RIGHT ATRIUM: NORMAL LEFT ATRIUM: MILD DILATED RIGHT VENTRICLE: NORMAL LEFT VENTRICLE: NORMAL TRICUSPID VALVE: MILD TRICUSPID REGURGITATION MITRAL VALVE: TRACE MITRAL REGURGITATION PULMONIC VALVE: NORMAL AORTIC VALVE: NORMAL PERICARDIAL EFFUSION: NONE AORTIC ROOT: NORMAL LEFT VENTRICULAR WALL MOTION: NORMAL DOPPLER/COLOR FLOW: NORMAL COMMENTS: 1. NORMAL LEFT VENTRICULAR SYSTOLIC FUNCTION, EJECTION FRACTION 55-60%, NORMAL DIASTOLIC FUNCTION 2. MILD PULMONARY HYPERTENSION (RIGHT VENTRICULAR SYSTOLIC PRESSURE 35 mmHg) TECHNOLOGIST: ROMAN MARTIN
--- NOTE | 2024-06-08 19:16 | P.PN ---
Subjective Date of Service: 06/08/24 Chief Complaint: NSVT Patient has no new complain. Tolerating his diet No reported fever He denies any pain. Physical Examination - Vital Signs Temperature: 97.0 F Blood Pressure: 106/63 Pulse: 58 Respirations: 16 Pulse Ox (%): 95 - Studies Medications List Reviewed: Yes Assessment And Plan - Plan Physical examination General: Alert and oriented x3, NAD, HEENT: Anicteric sclera Neck: Supple, no elevated JVD Heart: Heart sounds 1 and 2 normal, regular rhythm, normal rate, no pedal edema Lungs: Clear to auscultation bilaterally, adequate breath sounds bilaterally, no rhonchi or crackles. Abdomen: Soft, nondistended, nontender, normal bowel sounds. Extremities: No tenderness, no deformity Skin: Normal skin turgor, no rash, no nodules or ulcers. Neuro: No focal motor deficit. Normal speech. Psychiatry: Normal mood, no agitation. Problem List: UTI POA, secondary to indwelling Taylor catheter Hematuria, acute Diarrhea secondary to c.diff+ colitis (moderate) Nonsustained Vtach, acute hx CAD s/p CABG COPD; chronic Hx lung cancer UTI POA, secondary to indwelling Taylor catheter Hematuria urine culture from ER visit 05/24 grew multiple organisms - Enterococcus faecalis, Enterobacter cloaecae and Pseudomonas aeruginosa taylor initially placed ~3 weeks ago due to urinary retention. had taylor catheter replaced in the ED - f/u urology as outpatient reports several months of urinary retention Enterobacter MDR only sensitive to merrem midline placed for IV merrem continue merrem (05/30-06/12) Patient to complete 2 weeks of merrem. (end date: ~06/12/24) Social service assisting with outpatient IV antibiotics arrangement. Hematuria resolved. Diarrhea secondary to c.diff+ colitis (moderate) CT abdomen (06/05): moderate stool retention with moderate colitis in rectosigmoid colon. No free air/abscess/free fluid. Significantly elevated prostate gland C.diff+ confirmed 06/05 continue PO vanc for 10 days for c.diff (06/04-06/14) diarrhea improved. Nonsustained Vtach hx CAD s/p CABG had 5 sec run of nonsustained vtach earlier this week. Cardiology consulted and recommended continue amiodarone; increased to 200 mg BID (06/05) and echo Patient is on metoprolol will need to f/u outpatient for stress test per cardiology. COPD; chronic Continue bronchodilators as needed stable Hypotension Intermittent Obtain echocardiogram. VTE: SCD Code: Full Dispo: Home.
--- NOTE | 2024-06-09 10:48 | P.DS ---
Admission Date: 05/29/24 Discharge Date: 06/09/24 Disposition: DC HOME/HOME HEALTH CARE Discharge Condition: FAIR Reason for Admission: NSVT Hospital Course: Diagnosis UTI POA, secondary to indwelling Taylor catheter Hematuria, acute Diarrhea secondary to c.diff+ colitis (moderate) Nonsustained Vtach, acute hx CAD s/p CABG COPD; chronic Hx lung cancer Patient presented to ED with dysuria and was found to have a multi-drug resistant UTI. Patient was recently seen in ED on 05/24 for UTI/hematuria and was given 1 week prescription of Cipro. Final urine culture resulted 05/29 with multiple organisms including Pseudomonas Aeruginosa, Enterococcus faecalis, and MDR Enterobacter Cloacae only sensitive to merrem. Patient had taylor replaced in ED and was started on merrem and had improvement of his symptoms. Patient is to complete 2 weeks of IV merrem. (end date: 06/12/24) Patient was feeling better, dysuria improved, afebrile without leukocytosis, and deemed stable for discharge. During his hospitalization, patient was noted to have multiple episodes of diarrhea, secondary to C.diff colitis. Patient was started on oral vanc and had improvement of his symptoms. Patient is to complete 14 days total of oral vancomycin. (end date: 06/16) Medications: Merrem 1000 mg q8h (end date: ~06/12/24) Vancomycin 125 mg q6h (end date: 06/14/24) Follow up: PCP 3-5 days Please call to schedule / confirm appointments Vital Signs/Physical Exam: Temp Pulse Resp BP Pulse Ox 98.5 F 67 21 H 110/70 94 06/09/24 08:00 06/09/24 08:00 06/09/24 08:00 06/09/24 08:00 06/09/24 08:00 General: Alert, In no apparent distress, Oriented x3 HEENT: Mucous membr. moist/pink Neck: JVD not distended Respiratory: Clear to auscultation bilaterally, Normal air movement Cardiovascular: No edema, Regular rate/rhythm, Normal S1 S2 Gastrointestinal: Soft and benign, Non-distended, No tenderness Musculoskeletal: No swelling Integumentary: No cyanosis Neurological: Normal speech, Normal strength at 5/5 x4 extr Laboratory Data at Discharge: WBC 16.40 thou/uL (4.3-10.9) H 06/07/24 06:22 Hgb 12.4 g/dL (13.6-17.9) L 06/07/24 06:22 Hct 36.3 % (39.6-49.0) L 06/07/24 06:22 Plt Count 226 thou/uL (152-406) 06/07/24 06:22 Sodium 133 mEq/L (136-145) L 06/07/24 06:22 Potassium 3.8 mEq/L (3.5-5.1) 06/07/24 06:22 BUN 17 mg/dL (7-18) 06/07/24 06:22 Creatinine 0.77 mg/dL (0.70-1.30) 06/07/24 06:22 Glucose 97 mg/dL (74-106) 06/07/24 06:22 Magnesium 1.9 mg/dL (1.6-2.4) 06/07/24 06:22 Total Bilirubin 1.9 mg/dL (0.2-1.0) H 06/07/24 06:22 AST 14 U/L (15-37) L 06/07/24 06:22 ALT 15 U/L (16-61) L 06/07/24 06:22 Alkaline Phosphatase 63 U/L (45-117) 06/07/24 06:22 Home Medications: Amiodarone HCl [Cordarone*] 200 mg PO BID #60 tab 06/09/24 Carboxymethylcellulose Sodium [Refresh Tears] 2 drops OPTH Q8H #1 bottle 06/09/24 Vancomycin HCl 125 mg PO Q6HR #36 cap 06/09/24 New Medications: Vancomycin HCl 125 mg PO Q6HR #36 cap Amiodarone HCl [Cordarone*] 200 mg PO BID #60 tab Carboxymethylcellulose Sodium [Refresh Tears] 2 drops OPTH Q8H #1 bottle Physician Discharge Instructions: Physician discharge instructions: Patient presented to ED with dysuria and was found to have a multi-drug resistant UTI. Patient was recently seen in ED on 05/24 for UTI/hematuria and was given 1 week prescription of Cipro. Final urine culture resulted 05/29 with multiple organisms including Pseudomonas Aeruginosa, Enterococcus faecalis, and MDR Enterobacter Cloacae only sensitive to merrem. Patient had taylor replaced in ED and was started on merrem and had improvement of his symptoms. Patient is to complete 2 weeks of IV merrem. (end date: 06/12/24) Patient was feeling better, dysuria improved, afebrile without leukocytosis, and deemed stable for discharge. During his hospitalization, patient was noted to have multiple episodes of diarrhea, secondary to C.diff colitis. Patient was started on oral vanc and had improvement of his symptoms. Patient is to complete 10 days total of oral vancomycin. (end date: 06/14) Medications: Merrem 1000 mg q8h (end date: ~06/12/24) Vancomycin 125 mg q6h (end date: 06/14/24) Follow up: PCP 3-5 days Please call to schedule / confirm appointments Home Health/Home IV Infusion arranged by the CT: [facility] Maite keenan ph: [phone] ph: [phone], Ext [phone] Diet: AHA Activity: Fall precautions Followup: NONE,NONE [Primary Care Provider] - Time spent managing pt's care (in minutes): 36
[2024-06-09 12:05] LABS: Absolute Basophils 0.1 K/uL (0-0.5); Absolute Eosinophils 0.3 K/uL (0-0.5); Absolute Lymphocytes (CBC) 0.9 K/uL (0.7-4.9); Absolute Monocytes 0.9 K/uL (0.1-1.3); Absolute Neutrophil 4.4 K/uL (1.8-8.0); Basophils % 1.2 % (0-1.3); Eosinophils % 4.6 % (0-4.4); Hematocrit 37.7 % (39.6-49.0); Hemoglobin 12.5 g/dL (13.6-17.9); Lymphocytes % 13.3 % (15.3-44.8); MCH 30.8 pg (27.0-35.0); MCHC 33.1 g/dL (32.0-36.0); MCV 92.8 fL (80-100); MPV 6.8 fL (7.6-11.3); Neutrophils % 66.9 % (41.7-73.7); Nucleated Red Blood Cells % 0.1 % (0-0); Platelets 248 thou/uL (152-406); RBC Red Blood Cell Count 4.06 M/uL (4.33-5.43); Red Cell Distribution Width 13.3 % (12.1-15.2)
[2024-06-09 12:12] LABS: Anion Gap 7.5 mEq/L (5.0-15.0); Potassium 3.5 mEq/L (3.5-5.1)
[2024-06-09 14:45] VITALS: O2SAT 95
[2024-06-09 16:30] VITALS: BP 117/64; TEMP 98.8
== END 2024-06-09 19:50 | disposition home health service (06) | DRG 699 ==
LOC: ER 16:19 → ERHOLD 19:12 → 4TH 19:42
PROVIDERS: ADMIT Family Medicine; ATTEND Internal Medicine
PROC: 0T9B70Z Drainage of Bladder with Drainage Device, Via Natural or Artificial Opening (ICD-10-PCS; principal; 2024-05-29)
PROC: 02HV33Z Insertion of Infusion Device into Superior Vena Cava, Percutaneous Approach (ICD-10-PCS; 2024-05-29)
DX: T83.518A Infection and inflammatory reaction due to other urinary catheter, initial encounter (principal); A04.72 Enterocolitis due to Clostridium difficile, not specified as recurrent; I47.20 Ventricular tachycardia, unspecified; N39.0 Urinary tract infection, site not specified; R64 Cachexia; Z16.24 Resistance to multiple antibiotics; I10 Essential (primary) hypertension; I48.91 Unspecified atrial fibrillation; I95.9 Hypotension, unspecified; J44.9 Chronic obstructive pulmonary disease, unspecified; K21.9 Gastro-esophageal reflux disease without esophagitis; I25.10 Atherosclerotic heart disease of native coronary artery without angina pectoris; B95.2 Enterococcus as the cause of diseases classified elsewhere; B96.89 Other specified bacterial agents as the cause of diseases classified elsewhere; B96.5 Pseudomonas (aeruginosa) (mallei) (pseudomallei) as the cause of diseases classified elsewhere; R31.9 Hematuria, unspecified; Z95.1 Presence of aortocoronary bypass graft; Z88.8 Allergy status to other drugs, medicaments and biological substances; Z79.01 Long term (current) use of anticoagulants; Z68.20 Body mass index [BMI] 20.0-20.9, adult; Z90.49 Acquired absence of other specified parts of digestive tract; Z87.891 Personal history of nicotine dependence; Z79.899 Other long term (current) drug therapy; Z85.118 Personal history of other malignant neoplasm of bronchus and lung; Y84.8 Other medical procedures as the cause of abnormal reaction of the patient, or of later complication, without mention of misadventure at the time of the procedure
CPT/HCPCS: 36415; 51702; 74177; 80048; 80053; 81001; 83605; 83735; 84132; 85025; 87040; 87086; 87088; 87324; 93306; 96365; 96366; 99285; J1650; J2185; J3420; J7030; J7040; Q9967

== ENCOUNTER 2024-06-14 18:24 | Inpatient (IN) | payer OTHER ==
[2024-06-14] MEDS ORDERED: HYDROCODONE/APAP 10/325 TAB ONE (18:57)
[2024-06-14] MEDS ORDERED: NA CHLORIDE 0.9% 1,000 ML ONE (18:57)
[2024-06-14 19:06] LABS: Absolute Basophils 0.1 K/uL (0-0.5); Absolute Eosinophils 0.7 K/uL (0-0.5); Absolute Lymphocytes (CBC) 0.9 K/uL (0.7-4.9); Absolute Monocytes 0.7 K/uL (0.1-1.3); Absolute Neutrophil 8.8 K/uL (1.8-8.0); Basophils % 0.7 % (0-1.3); Eosinophils % 6.1 % (0-4.4); Hematocrit 34.9 % (39.6-49.0); Hemoglobin 11.7 g/dL (13.6-17.9); Lymphocytes % 8.4 % (15.3-44.8); MCH 30.6 pg (27.0-35.0); MCHC 33.5 g/dL (32.0-36.0); MCV 91.3 fL (80-100); MPV 6.1 fL (7.6-11.3); Monocytes % 6.1 % (3.3-12.3); Neutrophils % 78.7 % (41.7-73.7); Nucleated Red Blood Cells % 0.1 % (0-0); Platelets 401 thou/uL (152-406); RBC Red Blood Cell Count 3.82 M/uL (4.33-5.43); Red Cell Distribution Width 13.5 % (12.1-15.2)
[2024-06-14 19:14] LABS: Sqamous Epithelial None Seen /HPF (None Seen); Urine Bacteria None Seen /HPF (<20); Urine Culture Reflex Order REFLEXED; Urine Mucus 4+ /HPF (None Seen); Urine RBC >50 /HPF (None Seen); Urine WBC >50 /HPF (<5); Urine Yeast (Budding) Trace /HPF (None Seen)
[2024-06-14 19:15] LABS: Urine Bilirubin NEGATIVE (Negative); Urine Blood 3+ (OVER) (Negative); Urine Clarity Extremely Turbid (Clear); Urine Color Light-Orange (Yellow); Urine Glucose NEGATIVE (Negative); Urine Ketones NEGATIVE (Negative); Urine Microscopic Reflex YN NO UMIC; Urine Nitrite NEGATIVE (Negative); Urine Protein 2+ (Negative); Urine Urobilinogen Normal (Normal)
[2024-06-14 19:20] LABS: Albumin 2.5 g/dL (3.4-5.0); Albumin/Globulin Ratio 0.8 (1.1-1.8); Bilirubin Total 1.8 mg/dL (0.2-1.0); Globulin 3.2 g/dL (2.3-3.5); Protein, Total 5.7 g/dL (6.4-8.2)
--- NOTE | 2024-06-14 21:21 | RAD REPORT ---
EXAM DESCRIPTION: CT - Abdomen Pelvis W Contrast - 06/14/2024 8:56 pm CLINICAL HISTORY: Abdominal pain COMPARISON: June 05, 2024 TECHNIQUE: Computed axial tomography of the abdomen pelvis was obtained. 100 cc Isovue-300 was admin istered intravenously. Oral contrast was not requested which limits evaluation of bowel and appendix All CT scans are performed using dose optimization technique as appropriate and may include automated exposure control or mA/KV adjustment according to patient size. FINDINGS: Small area of atelectasis left lower lobe Multiple small hepatic cysts Spleen, adrenals, pancreas and left kidney are unremarkable 6.2 cm right renal cyst There is no evidence of diverticulitis. Prostate gland is markedly enlarged. Hall catheter within the bladder Large amount stool within the colon. No evidence of diverticulitis Mild chronic compression deformity L2 vertebral body IMPRESSION: Large amount stool within the colon
--- NOTE | 2024-06-14 22:12 | P.HP ---
Certification for Inpatient Patient admitted to: Inpatient With expected LOS: <2 Midnights Practitioner: I am a practitioner with admitting privileges, knowledge of patient current condition, hospital course, and medical plan of care. Services: Services provided to patient in accordance with Admission requirements found in Title 42 Section 412.3 of the Code of Federal Regulations Patient History Date of Service: 06/15/24 Reason for admission: Hematuria, History of Present Illness: 78 yrs old Male with past medical history of hypertension, CAD status post quadruple bypass, GERD, lung cancer, COPD, hernia repair brought to ER with blood in his urine,. He reports he was recently discharged, treated with IV antibiotics, Hall was replaced in the emergency room. UA sent. Started on IV meropenem. No fever or chills. No nausea vomiting or diarrhea. Plan to admit for pyelonephritis, hematuria, IV antibiotics, IV fluids, Allergies albuterol Allergy (Verified 01/09/23 11:57) Anaphylaxis barium sulfate Allergy (Verified 01/09/23 11:57) Anaphylaxis gabapentin Allergy (Verified 01/09/23 11:57) Itching mycin drugs Allergy (Uncoded 01/09/23 11:57) Nausea/Vomiting Home Medications: Amiodarone HCl [Cordarone*] 200 mg PO BID #60 tab 06/09/24 Carboxymethylcellulose Sodium [Refresh Tears] 2 drops OPTH Q8H #1 bottle 06/09/24 Vancomycin HCl 125 mg PO Q6HR #36 cap 06/09/24 - Past Medical/Surgical History Diabetic: No -: COPD -: CAD -: Lung Cancer -: CABG -: gallbladder - Family History Brother -: Heart disease, Diabetes - Social History Alcohol use: No CD- Drugs: No Caffeine use: No Physical Examination - Physical Exam General: Alert, In no apparent distress, Oriented x3, Other (Cachectic) HEENT: Atraumatic, Normocephalic Neck: Supple, JVD not distended Respiratory: Normal air movement, Diminished Cardiovascular: Normal pulses, Regular rate/rhythm Gastrointestinal: Normal bowel sounds, Soft and benign Musculoskeletal: Other (Moderate generalized weakness) Integumentary: No rashes, No breakdown Neurological: Normal speech, Cranial nerves 3-12 intact, Abnormal gait, Abnormal strength Urinary: Hall catheter - Studies Laboratory Data (last 24 hrs) 06/14/24 06/14/24 18:49 18:49 WBC 11.10 H Hgb 11.7 L Hct 34.9 L Plt Count 401 Sodium 141 Potassium 3.0 L BUN 19 H Creatinine 1.11 Glucose 92 Total Bilirubin 1.8 H AST 20 ALT 19 Alkaline Phosphatase 75 Lipase 16 Assessment and Plan - Plan Assessment and Plan - Problems (Diagnosis) Acute cystitis Hematuria Chronic indwelling Hall catheter Blood, urine cultures ordered History of Pseudomonas in the urine Started on meropenem Monitor closely. Supportive management Continue antibiotics Monitor closely Consider infectious disease consult Hypokalemia Hypocalcemia Trend electrolytes replace as needed Microcytic anemia Trend H&H COPD History of lung CA Chronic pain Continue bronchodilators as needed Pain control Resume home meds History of C. difficile Monitor antibiotics GI/DVT prophylaxis Advanced directive full code - Advance Directives Does patient have a Living Will: No Does patient have a Durable POA for Healthcare: No - Code Status/Comfort Care Code Status: Full Code Time Spent Managing Pts Care (In Minutes): 55
--- NOTE | 2024-06-14 22:20 | EDPHYS ---
Physician Documentation [facility] Name: David Kumar Age: 78 yrs Sex: Male : 1945 Arrival Date: 06/14/2024 Time: 18:24 Bed 16 Private MD: ED Physician Andrew Dougherty HPI: 06/14 20:36 This 78 yrs old Male presents to ER via EMS with complaints of Blood In Catheter. rt 20:36 Patient presents to the ED with blood in the catheter. Patient had a recent admission rt to the hospital for an ESBL UTI, meropenem. Patient also found to have C. difficile. Unclear if the patient has been compliant with medications. Since discharge, he has had blood in the urine. The patient reports a pain "all over.". Denies other acute complaints at this time, symptoms are moderate in severity, no other aggravating or elevating factors.. Historical: - Allergies: 18:22 Albuterol; db 18:22 barium sulfate; db 18:22 GABAPENTIN; db - Home Meds: 21:53 aspirin 81 mg Oral tab [Active]; atorvastatin 20 mg Oral tab [Active]; tl4 carboxymethylcellulose-citric acid Oral [Active]; folic acid 1 mg Oral tab [Active]; terbinafine hcl 1% cream [Active]; tamsulosin 0.4 mg Oral cap [Active]; omeprazole 20 mg Oral TbEC [Active]; nitroglycerin 0.4 mg SL subl [Active]; montelukast 10 mg Oral tab [Active]; ketoconazole 2 % Topical sham [Active]; galantamine 16 mg Oral C24P [Active]; cyanocobalamin (vitamin B-12) Oral [Active]; - PMHx: 18:22 CAD; COPD; stage 1 lung cancer; Ulcers; db - PSHx: 18:22 Cholecystectomy; hernia repair; quadruple bypass (Ulce); db - Immunization history:: Adult Immunizations unknown. - Infectious Disease History:: CDIFF, . - Social history:: Smoking status: Patient/guardian denies using tobacco, the patient reports quitting approximately 16 years ago. - Family history:: not pertinent. ROS: 20:36 Cardiovascular: Negative for chest pain, palpitations, and edema, Respiratory: Negative rt for shortness of breath, cough, wheezing, and pleuritic chest pain, Abdomen/GI: Negative for abdominal pain, nausea, vomiting, diarrhea, and constipation, MS/Extremity: Negative for injury and deformity, Skin: Negative for injury, rash, and discoloration, Neuro: Negative for headache, weakness, numbness, tingling, and seizure, 20:36 Constitutional: Positive for body aches, Negative for fever, 20:36 : Positive for hematuria, Exam: 20:36 Constitutional: This is a well developed, well nourished patient who is awake, alert, rt and in no acute distress. Head/Face: Normocephalic, atraumatic. Chest/axilla: Normal chest wall appearance and motion. Nontender with no deformity. No lesions are appreciated. Cardiovascular: Regular rate and rhythm with a normal S1 and S2. No gallops, murmurs, or rubs. Normal PMI, no JVD. No pulse deficits. Respiratory: Lungs have equal breath sounds bilaterally, clear to auscultation and percussion. No rales, rhonchi or wheezes noted. No increased work of breathing, no retractions or nasal flaring. Skin: Warm, dry with normal turgor. Normal color with no rashes, no lesions, and no evidence of cellulitis. MS/ Extremity: Pulses equal, no cyanosis. Neurovascular intact. Full, normal range of motion. Neuro: Awake and alert, GCS 15, oriented to person, place, time, and situation. Cranial nerves II-XII grossly intact. Motor strength 5/5 in all extremities. Sensory grossly intact. Cerebellar exam normal. Normal gait. 20:36 Abdomen/GI: Mild tenderness diffusely without rebound, guarding, distention, Vital Signs: 18:22 BP 113 / 78; Pulse 68; Resp 18; Temp 98; Pulse Ox 92% ; Weight 68.04 kg; Height 5 ft. db 10 in. ; 18:30 BP 102 / 74; Pulse 65; Resp 18; Pulse Ox 92% on R/A; db 19:30 BP 123 / 68; Pulse 62; Resp 22; Pulse Ox 94% on R/A; tl4 20:30 BP 108 / 68; Pulse 57; Resp 22; Pulse Ox 93% on R/A; tl4 21:30 BP 102 / 69; Pulse 62; Resp 24; Pulse Ox 92% on 2 lpm NC; tl4 22:30 BP 107 / 68; Pulse 55; Resp 20; Pulse Ox 96% on 2 lpm NC; tl4 23:19 BP 128 / 71; Pulse 54; Resp 20; Temp 97.9(O); Pulse Ox 98% on R/A; tl4 18:22 Body Mass Index 21.52 (68.04 kg, 177.8 cm) db MDM: 18:30 Patient medically screened. rt 22:19 Differential Diagnosis altered mental status, sepsis, flu. Data reviewed: vital signs, sp4 nurses notes, EMS record, lab test result(s), radiologic studies, CT scan. Consideration of Admission/Observation Patient was admitted/placed on observation. Escalation of care including admission/observation considered. Management of patient was discussed with the following: Hospitalist: Admitting team . 06/14 18:34 Order name: CBC with Diff; Complete Time: 20:04 rt 06/14 18:34 Order name: CMP; Complete Time: 20:04 rt 06/14 18:34 Order name: Lipase; Complete Time: 20:04 rt 06/14 18:34 Order name: Urinalysis w/ reflexes; Complete Time: 20:04 rt 06/14 19:18 Order name: Urine Culture EDDE 06/14 22:21 Order name: Blood Culture Adult (2) 4 06/14 18:34 Order name: CT Abd/Pelvis - IV Contrast Only; Complete Time: 21:45 rt 06/14 18:34 Order name: IV Saline Lock; Complete Time: 18:53 rt 06/14 18:34 Order name: Labs collected and sent; Complete Time: 18:53 rt 06/14 22:01 Order name: Hall; Complete Time: 22:54 sp4 06/14 22:21 Order name: Misc. Order: Hall exchanged by ; Complete Time: 22:44 sp4 Administered Medications: 19:00 Drug: NS 0.9% IV 1000 ml IV at 1 bolus Per protocol; 1000 mL bolus Route: IV; Rate: 1 db bolus; Site: left forearm; 21:55 Follow up: Response: No adverse reaction; IV Status: Completed infusion; IV Intake: tl4 1000ml 19:00 Drug: HYDROcodone-acetaminophen PO 10 mg-325 mg 1 tabs PO once Route: PO; db 21:54 Follow up: Response: No adverse reaction; Pain is decreased tl4 22:08 CANCELLED (Physician Discretion): Rocephin - rocephin (ceftriaxone)1 grams IVPB once sp4 over 30 mins; (mix in 50 mL NS) 23:12 Drug: NS 0.9% IV 1000 ml IV at 125 ml/hr continuous Route: IV; Rate: 125 ml/hr; Site: tl4 left antecubital; Delivery: Dial-a-flow; 23:39 Follow up: IV Status: Infusion continued tl4 23:12 Drug: NS 0.9% IV 1000 ml IV at 1 bolus Per protocol; 1000 mL bolus Route: IV; Rate: 1 tl4 bolus; Site: left antecubital; Delivery: Primary tubing; 23:39 Follow up: IV Status: Infusion continued tl4 23:13 Drug: metroNIDAZOLE IVPB 500 mg 100 ml IVPB at 200 ml/hr once over 30 mins Volume: 100 tl4 ml; Route: IVPB; Rate: 200 ml/hr; Infused Over: 30 mins; Site: left antecubital; 23:37 Follow up: IV Status: Completed infusion tl4 23:13 Drug: Meropenem IV 1 grams IV at calculated rate once; (mix in NS 100 mL) {Note: mixed tl4 in 100 mL NS.} Route: IV; Rate: calculated rate; Site: left antecubital; Delivery: Dial-a-flow; 23:38 Follow up: IV Status: Completed infusion tl4 Disposition Summary: 06/14/24 22:19 Hospitalization Ordered Notes: Hospitalization Status: Inpatient Admission sp4 Provider: Anselmo Caldwell Location: Telemetry/[facility] (Inpatient) sp4 Condition: Stable sp4 Problem: new sp4 Symptoms: have improved sp4 Bed/Room Type: Standard sp4 Room Assignment: [facility](06/14/24 22:43) [facility] Diagnosis - Pyelonephritis acute sp4 - Gross hematuria sp4 Forms: - Medication Reconciliation Form sp4 - SBAR form sp4 - Leadership Thank You Letter sp4 Signatures: Dispatcher Mirna Martinez RN RN Kendall Sawant MD MD rt Potepalov, Sergey, MD MD sp4 Milady Vang [facility] Willi Montano RN RN tl4 Corrections: (The following items were deleted from the chart) 18:34 18:34 CBC+H.LAB.BRZ ordered. EDMS EDMS 18:34 18:34 COMPREHENSIVE METABOLIC PANEL+C.LAB.BRZ ordered. EDMS EDMS 18:34 18:34 LIPASE+C.LAB.BRZ ordered. EDMS EDMS 18:34 18:34 Urinalysis+U.LAB.BRZ ordered. EDMS EDMS 18:34 18:34 Abdomen Pelvis W Con+CT.RAD.BRZ ordered. EDMS EDMS 22:08 22:02 Rocephin - Rocephin (cefTRIAXone) IVPB 1 grams IVPB once over 30 mins; (mix in 50 sp4 mL NS) ordered. sp4 22:43 22:19 sp4 kmf
--- NOTE | 2024-06-14 22:20 | ER ---
Nurse's Notes [facility] Name: David Kumar Age: 78 yrs Sex: Male : 1945 Arrival Date: 06/14/2024 Time: 18:24 Bed 16 Private MD: Diagnosis: Pyelonephritis acute;Gross hematuria Presentation: 06/14 18:22 Chief complaint: EMS states: PT FROM HOME RECENT HOSPITALIZATION FOR CDIFF. HERE TODAY db FOR BLOOD IN MAHMOOD X 1 WEEK. Coronavirus screen: Client denies travel out of the [place] in the last 14 days. At this time, the client does not indicate any symptoms associated with coronavirus-19. Ebola Screen: Patient negative for fever greater than or equal to 101.5 degrees Fahrenheit, and additional compatible Ebola Virus Disease symptoms Patient denies exposure to infectious person. Patient denies travel to an Ebola-affected area in the 21 days before illness onset. No symptoms or risks identified at this time. Initial Sepsis Screen: Does the patient meet any 2 criteria? No. Patient's initial sepsis screen is negative. Does the patient have a suspected source of infection? No. Patient's initial sepsis screen is negative. Risk Assessment: Do you want to hurt yourself or someone else? Patient reports no desire to harm self or others. Onset of symptoms was June 14, 2024. 18:22 Method Of Arrival: EMS: [facility] db 18:22 Acuity: CHRISTIANO 3 db 18:22 Care prior to arrival: IV initiated. 20 GA, in the left antecubital area. db Triage Assessment: 18:22 General: Appears in no apparent distress. comfortable, Behavior is calm, cooperative. db Pain: Denies pain. Neuro: Level of Consciousness is awake, alert, obeys commands, Oriented to person, place, time, situation. Cardiovascular: No deficits noted. Respiratory: Airway is patent Respiratory effort is even, unlabored, Respiratory pattern is regular, symmetrical. : Mahmood in place Urine is cloudy, blood tinged, Reports. Historical: - Allergies: 18:22 Albuterol; db 18:22 barium sulfate; db 18:22 GABAPENTIN; db - Home Meds: 21:53 aspirin 81 mg Oral tab [Active]; atorvastatin 20 mg Oral tab [Active]; tl4 carboxymethylcellulose-citric acid Oral [Active]; folic acid 1 mg Oral tab [Active]; terbinafine hcl 1% cream [Active]; tamsulosin 0.4 mg Oral cap [Active]; omeprazole 20 mg Oral TbEC [Active]; nitroglycerin 0.4 mg SL subl [Active]; montelukast 10 mg Oral tab [Active]; ketoconazole 2 % Topical sham [Active]; galantamine 16 mg Oral C24P [Active]; cyanocobalamin (vitamin B-12) Oral [Active]; - PMHx: 18:22 CAD; COPD; stage 1 lung cancer; Ulcers; db - PSHx: 18:22 Cholecystectomy; hernia repair; quadruple bypass (Ulce); db - Immunization history:: Adult Immunizations unknown. - Infectious Disease History:: CDIFF, . - Social history:: Smoking status: Patient/guardian denies using tobacco, the patient reports quitting approximately 16 years ago. - Family history:: not pertinent. Screenin:[facility] ED Fall Risk Assessment (Adult) History of falling in the last 3 months, db including since admission No falls in past 3 months (0 pts) Confusion or Disorientation No (0 pts) Intoxicated or Sedated No (0 pts) Impaired Gait Yes (1 pt) Mobility Assist Device Used Yes (1 pt) Altered Elimination Yes (1 pt) Score/Fall Risk Level 3 or more points = High Risk Oriented to surroundings, Maintained a safe environment, Hourly rounding (assess needs \T\ fall precautionary measures) done. Abuse screen: Denies threats or abuse. Denies injuries from another. Nutritional screening: No deficits noted. Tuberculosis screening: No symptoms or risk factors identified. Assessment: 18:32 Reassessment: SEE TRIAGE FOR INITIAL ASSESSMENT. Neuro: Level of Consciousness is db awake, alert, obeys commands, Oriented to person, place, time, situation. 19:32 Reassessment: Patient and/or family updated on plan of care and expected duration. Pain tl4 level reassessed. Patient is alert, oriented x 3, equal unlabored respirations, skin warm/dry/pink. Pt denies any needs at this time. Call nieto in reach, family at bedside. Will continue to monitor. 19:59 Reassessment: Patients , Laurel Kumar, would like to be call with updates to [phone] [id number]. 21:50 Reassessment: Patient and/or family updated on plan of care and expected duration. Pain tl4 level reassessed. Patient is alert, oriented x 3, equal unlabored respirations, skin warm/dry/pink. Pt denies any needs. Call nieto in reach. Will continue to monitor. Vital Signs: 18:22 BP 113 / 78; Pulse 68; Resp 18; Temp 98; Pulse Ox 92% ; Weight 68.04 kg; Height 5 ft. db 10 in. ; 18:30 BP 102 / 74; Pulse 65; Resp 18; Pulse Ox 92% on R/A; db 19:30 BP 123 / 68; Pulse 62; Resp 22; Pulse Ox 94% on R/A; tl4 20:30 BP 108 / 68; Pulse 57; Resp 22; Pulse Ox 93% on R/A; tl4 21:30 BP 102 / 69; Pulse 62; Resp 24; Pulse Ox 92% on 2 lpm NC; tl4 22:30 BP 107 / 68; Pulse 55; Resp 20; Pulse Ox 96% on 2 lpm NC; tl4 23:19 BP 128 / 71; Pulse 54; Resp 20; Temp 97.9(O); Pulse Ox 98% on R/A; tl4 18:22 Body Mass Index 21.52 (68.04 kg, 177.8 cm) db ED Course: 18:22 Arm band placed on Patient placed in an exam room. db 18:28 Patient arrived in ED. db 18:29 Kendall Kirk MD is Attending Physician. rt 18:30 Triage completed. db 18:33 Patient has correct armband on for positive identification. Placed in gown. Bed in low db position. Call light in reach. Side rails up X 1. Pulse ox on. NIBP on. Warm blanket given. Pillow given. 18:33 Maintain EMS IV. Dressing intact. Good blood return noted. Site clean \T\ dry. Gauge \T\ db site: 20 LAC. 18:40 Mirna Gonsalves RN is Primary Nurse. db 19:08 Report given to YUNIER ROTHMAN. db 20:04 Attending Physician role handed off by Kendall Kirk MD sp4 20:04 Andrew Dougherty MD is Attending Physician. sp4 20:58 CT Abd/Pelvis - IV Contrast Only In Process Unspecified. EDMS 21:52 Provided Education on: call ania nieto. tl4 21:52 No provider procedures requiring assistance completed. tl4 22:18 Anselmo aCldwell is Hospitalizing Provider. sp4 23:39 Patient admitted, IV remains in place. tl4 Administered Medications: 19:00 Drug: NS 0.9% IV 1000 ml IV at 1 bolus Per protocol; 1000 mL bolus Route: IV; Rate: 1 db bolus; Site: left forearm; 21:55 Follow up: Response: No adverse reaction; IV Status: Completed infusion; IV Intake: tl4 1000ml 19:00 Drug: HYDROcodone-acetaminophen PO 10 mg-325 mg 1 tabs PO once Route: PO; db 21:54 Follow up: Response: No adverse reaction; Pain is decreased tl4 22:08 CANCELLED (Physician Discretion): Rocephin - rocephin (ceftriaxone)1 grams IVPB once sp4 over 30 mins; (mix in 50 mL NS) 23:12 Drug: NS 0.9% IV 1000 ml IV at 125 ml/hr continuous Route: IV; Rate: 125 ml/hr; Site: tl4 left antecubital; Delivery: Dial-a-flow; 23:39 Follow up: IV Status: Infusion continued tl4 23:12 Drug: NS 0.9% IV 1000 ml IV at 1 bolus Per protocol; 1000 mL bolus Route: IV; Rate: 1 tl4 bolus; Site: left antecubital; Delivery: Primary tubing; 23:39 Follow up: IV Status: Infusion continued tl4 23:13 Drug: metroNIDAZOLE IVPB 500 mg 100 ml IVPB at 200 ml/hr once over 30 mins Volume: 100 tl4 ml; Route: IVPB; Rate: 200 ml/hr; Infused Over: 30 mins; Site: left antecubital; 23:37 Follow up: IV Status: Completed infusion tl4 23:13 Drug: Meropenem IV 1 grams IV at calculated rate once; (mix in NS 100 mL) {Note: mixed tl4 in 100 mL NS.} Route: IV; Rate: calculated rate; Site: left antecubital; Delivery: Dial-a-flow; 23:38 Follow up: IV Status: Completed infusion tl4 Medication: 18:33 VIS not applicable for this client. db Intake: 21:55 IV: 1000ml; Total: 1000ml. tl4 Outcome: 22:19 Decision to Hospitalize by Provider. sp4 06/15 01:16 Patient left the ED. sb4 Signatures: Dispatcher [employer] EDMirna Diane, RN RN Keren Beatty PA-C PA-C sb4 Kendall Kirk MD MD rt Andrew Dougherty MD MD sp4 Reny Swenson RN RN nj1 Willi Montano RN RN tl4 Corrections: (The following items were deleted from the chart) 06/14 23:13 23:12 Meropenem IV 1 grams IV at calculated rate in left antecubital via Primary tubing tl4 tl4
[2024-06-14] MEDS ORDERED: Meropenem 500 MG VIAL IV ONE (22:49)
[2024-06-14] MEDS ORDERED: METRONIDAZOLE 500mg IVPB 500 MG/100 ML BAG IV ONE (22:50)
[2024-06-14] MEDS ORDERED: NA CHLORIDE 0.9% 2,000 ML ONE (22:50)
[2024-06-14] MEDS ORDERED: NA CHLORIDE 0.9% 100 ML ONE (22:50)
[2024-06-15 01:27] VITALS: O2SAT 98
[2024-06-15] MEDS: NA CHLORIDE 0.9% 1,000 ML IV SCH (01:46)
[2024-06-15] MEDS ORDERED: ONDANSETRON 4 MG/2 ML VIAL IV PRN (01:46)
[2024-06-15] MEDS ORDERED: ACETAMINOPHEN 500 MG TAB PO PRN (01:46)
[2024-06-15 02:28] VITALS: BMI 21.4
[2024-06-15 06:28] LABS: Absolute Basophils 0.1 K/uL (0-0.5); Absolute Eosinophils 0.8 K/uL (0-0.5); Absolute Lymphocytes (CBC) 0.8 K/uL (0.7-4.9); Absolute Monocytes 0.6 K/uL (0.1-1.3); Absolute Neutrophil 8.1 K/uL (1.8-8.0); Basophils % 0.8 % (0-1.3); Eosinophils % 7.8 % (0-4.4); Hematocrit 30.8 % (39.6-49.0); Hemoglobin 10.7 g/dL (13.6-17.9); Lymphocytes % 7.7 % (15.3-44.8); MCH 31.7 pg (27.0-35.0); MCHC 34.7 g/dL (32.0-36.0); MCV 91.3 fL (80-100); MPV 6.2 fL (7.6-11.3); Monocytes % 5.6 % (3.3-12.3); Neutrophils % 78.1 % (41.7-73.7); Nucleated Red Blood Cells % 0.1 % (0-0); Platelets 365 thou/uL (152-406); RBC Red Blood Cell Count 3.38 M/uL (4.33-5.43); Red Cell Distribution Width 13.4 % (12.1-15.2)
[2024-06-15 06:31] LABS: Magnesium 2.1 mg/dL (1.6-2.4)
[2024-06-15] MEDS: Meropenem 1,000 MG in NA CHLORIDE 0.9% 100 ML IV SCH (09:37)
[2024-06-15] MEDS: POTASSIUM 25 MEQ EFFERV TAB PO SCH (09:38)
--- NOTE | 2024-06-15 10:08 | P.PN ---
Date of Service: 06/15/24 Subjective: No acute events overnight Complains of lower extremity edema and mild hematuria ROS: 10 point ROS as noted above, otherwise negative Physical exam GEN: Alert, oriented, NAD HEENT: Normal conjunctiva, sclera anicteric CV: Regular rate and rhythm, no edema Pulm: Nonlabored respirations on room air ABD: Soft, nontender, nondistended, Hall catheter in place with tea colored urine, small clots MSK: No joint tenderness Integumentary: No rashes Neuro: Normal speech, normal affect Vitals reviewed Assessment and Plan Acute cystitis Hematuria Chronic indwelling Hall catheter History of C. difficile Completed course of antibiotics recently with oral vancomycin for C. difficile Reports diarrhea has significantly improved, having 1 bowel movement a day, soft/jellylike Blood and urine cultures ordered History of Pseudomonas in the urine Started on meropenem 06/14 overnight Consider infectious disease consult Hypokalemia Hypocalcemia Trend electrolytes replace as needed Microcytic anemia Trend H&H COPD History of lung CA Chronic pain Continue bronchodilators as needed Pain control Resume home meds GI/DVT prophylaxis-SCD Advanced directive full code Time Spent Managing Pts Care (In Minutes): 35
--- NOTE | 2024-06-15 11:45 | CON ---
History Of Present Illness: This is a 78-year-old male who was brought into the hospital with signif icant past medical history of hypertension, coronary artery disease with the quadruple bypass, gastro esophageal reflux disease, lung cancer, COPD, hernia repair, was brought into the emergency room for blood in urine. Patient denies any headache, nausea, vomiting, chest pain, abdominal pain, constipat ion, diarrhea. Currently, on IV meropenem. Past Medical History: As per HPI. Social History: Nonsmoker. Nondrinker. Family History: Noncontributory. Medications: Meropenem. See MARs for other medications. Allergies: ALBUTEROL, BARIUM SULFATE, GABAPENTIN. Review of Systems: A 10-point review was performed. Physical Examination: General: This is a 78-year-old male, lying in bed, not in any acute cardiopulmonary distress. Vital Signs: Temperature 98.8, pulse 70, respirations 16, blood pressure 90/53. HEENT: Unremarkable. Neck: Supple. Lungs: Basal crackles, right more than left. Heart: S1, S2. Regular. Abdomen: Soft, nontender. Bowel sounds present. Extremity: Left lower extremity with the 1+ edema. Imaging: CT scan of abdomen and pelvis shows large amount of stool within colon. Laboratory Data: Shows WBC 11.1, down to 10.4, hemoglobin 10.7, platelets are 365. Chemistry shows BUN of 19, creatinine 1, total bilirubin of 1.8, albumin of 2.5. Urinalysis shows wbc more than 50 w ith leukocyte esterase of 500. Micro data shows blood cultures and urine cultures are pending. Assessment And Plan: 78-year-old male with multiple medical problems, coming in with the hematuria a nd possible cystitis with the elevated leukocytes in the urine, currently being given meropenem, pend ing culture results. Continue current treatment. We will readjust medication after we get the cultu res back. Consider getting a chest x-ray. Leukocytosis, improving. Anemia of chronic disease. Mon itor protein-calorie malnourishment. We will follow the patient as needed. NF/MODL Voice ID: [id number] Report ID: [id number]
--- NOTE | 2024-06-15 11:53 | RAD REPORT ---
EXAM DESCRIPTION: US - Extrem Venous W Compress Luciano - 06/15/2024 11:22 am CLINICAL HISTORY: luciano le edema COMPARISON: No comparisons TECHNIQUE: Real-time sonographic evaluation of the lower extremity deep venous systems was performed using color Doppler, grayscale, and compression. FINDINGS: Bilateral lower extremities. Normal compressibility, flow augmentation, phasic flow and spontaneous flow is identified in both the left and right lower extremity deep venous systems. No intraluminal filling defects seen. IMPRESSION: No DVT in either lower extremity.
[2024-06-15 15:23] LABS: Calcium Oxalate Crystals- Ur Few /HPF (None Seen); Specific Gravity > 1.030 (1.005-1.030); Sqamous Epithelial None Seen /HPF (None Seen); Urine Bacteria <20 /HPF (<20); Urine Bilirubin NEGATIVE (Negative); Urine Blood 3+ (OVER) (Negative); Urine Clarity Extremely Turbid (Clear); Urine Color Yellow (Yellow); Urine Culture Reflex Order REFLEXED; Urine Glucose NEGATIVE (Negative); Urine Ketones TRACE (Negative); Urine Microscopic Reflex YN ORDER UMIC; Urine Mucus Slight /HPF (None Seen); Urine Nitrite NEGATIVE (Negative); Urine Protein 2+ (Negative); Urine RBC >50 /HPF (None Seen); Urine Urobilinogen 1+ (Normal); Urine WBC >50 /HPF (<5); Urine Yeast (Budding) Trace /HPF (None Seen); Urine pH 6.5 (5.0-7.0)
[2024-06-15] MEDS: POTASSIUM 25 MEQ EFFERV TAB PO ONE (17:17)
[2024-06-16 05:25] LABS: Absolute Basophils 0.1 K/uL (0-0.5); Absolute Eosinophils 0.9 K/uL (0-0.5); Absolute Lymphocytes (CBC) 1.3 K/uL (0.7-4.9); Absolute Monocytes 0.5 K/uL (0.1-1.3); Basophils % 0.6 % (0-1.3); Hematocrit 31.8 % (39.6-49.0); Hemoglobin 10.9 g/dL (13.6-17.9); Lymphocytes % 13.6 % (15.3-44.8); MCH 31.2 pg (27.0-35.0); MCHC 34.4 g/dL (32.0-36.0); MCV 90.9 fL (80-100); MPV 6.3 fL (7.6-11.3); Monocytes % 5.6 % (3.3-12.3); Neutrophils % 71.2 % (41.7-73.7); Platelets 351 thou/uL (152-406); Red Cell Distribution Width 13.5 % (12.1-15.2)
[2024-06-16 05:37] LABS: Anion Gap 6.6 mEq/L (5.0-15.0); Magnesium 2.2 mg/dL (1.6-2.4); Potassium 3.6 mEq/L (3.5-5.1)
[2024-06-16] MEDS: POTASSIUM 25 MEQ EFFERV TAB PO ONE (08:00)
--- NOTE | 2024-06-16 11:54 | PN ---
Subjective: The patient is lying in bed. No new acute event. Chart reviewed. Objective: Vital Signs: Reviewed. Lungs: Basal crackles. Heart: S1, S2. Regular. Abdomen: Soft, nontender. Bowel sounds present. Extremity: No edema. Laboratory Data: Reviewed. Micro data shows mixed shanna in the urine. Blood cultures are negative for 24 hours. Assessment And Plan: Urinary tract infection, currently on meropenem. Continue 5 days worth of anti biotic. Continue supportive care. Leukocytosis has resolved. Anemia of chronic disease. Continue on treatment. NF/MODL Voice ID: [id number] Report ID: [id number]
[2024-06-16] MEDS: NA CHLORIDE 0.9% 500 ML IV ONE (11:59)
[2024-06-16] MEDS: ALBUMIN HUM 5% 500 ML IV SCH (12:25)
--- NOTE | 2024-06-16 13:25 | P.PN ---
Date of Service: 06/16/24 Subjective: No acute events overnight Hematuria improved ROS: 10 point ROS as noted above, otherwise negative Physical exam GEN: Alert, oriented, NAD HEENT: Normal conjunctiva, sclera anicteric CV: Regular rate and rhythm, no edema Pulm: Nonlabored respirations on room air ABD: Soft, nontender, nondistended, Hall catheter in place with tea colored urine MSK: No joint tenderness Integumentary: No rashes Neuro: Normal speech, normal affect Vitals reviewed Assessment and Plan Acute cystitis Hematuria Chronic indwelling Hall catheter History of C. difficile Completed course of antibiotics recently with oral vancomycin for C. difficile Reports diarrhea has significantly improved, having 1 bowel movement a day, soft/jellylike Blood culture with no growth in 24 hours Urine culture pending History of Pseudomonas in the urine Started on meropenem 06/14 overnight ID following Hypotension Blood pressures reviewed including previous hospitalization Tends to run soft in the low 100s/90s systolic Given IV fluid/albumin today Monitor blood pressures closely If persistently low will consider starting midodrine Hypoalbuminemia Monitor albumin level, encourage oral intake given dose of albumin today for relatively low blood pressure Hypokalemia Hypocalcemia Trend electrolytes replace as needed Microcytic anemia Trend H&H COPD History of lung CA Chronic pain Continue bronchodilators as needed Pain control Resume home meds GI/DVT prophylaxis-SCD Advanced directive full code Time Spent Managing Pts Care (In Minutes): 35
[2024-06-16] MEDS ORDERED: Meropenem 1,000 MG in NA CHLORIDE 0.9% 100 ML IV SCH (17:00)
[2024-06-16] MEDS: FLUCONAZOLE 100 MG TAB PO SCH (17:40)
[2024-06-17 06:20] LABS: Hematocrit 34.2 % (39.6-49.0); Hemoglobin 11.9 g/dL (13.6-17.9); MCH 31.8 pg (27.0-35.0); MCHC 34.8 g/dL (32.0-36.0); MCV 91.4 fL (80-100); MPV 6.6 fL (7.6-11.3); Platelets 424 thou/uL (152-406); RBC Red Blood Cell Count 3.75 M/uL (4.33-5.43); Red Cell Distribution Width 13.6 % (12.1-15.2)
[2024-06-17 06:50] LABS: Albumin 2.6 g/dL (3.4-5.0); Albumin/Globulin Ratio 0.8 (1.1-1.8); Anion Gap 6.2 mEq/L (5.0-15.0); Bilirubin Total 1.2 mg/dL (0.2-1.0); Globulin 3.1 g/dL (2.3-3.5); Potassium 4.2 mEq/L (3.5-5.1); Protein, Total 5.7 g/dL (6.4-8.2)
[2024-06-17] MEDS: POTASSIUM CL SA 10 MEQ TAB PO ONE (08:00)
--- NOTE | 2024-06-17 09:55 | P.PN ---
Date of Service: 06/17/24 Subjective: No acute events overnight Hematuria improved Still very weak requiring mod/max assist, only able to take a few steps with w niccier ROS: 10 point ROS as noted above, otherwise negative Physical exam GEN: Alert, oriented, NAD HEENT: Normal conjunctiva, sclera anicteric CV: Regular rate and rhythm, no edema Pulm: Nonlabored respirations on room air ABD: Soft, nontender, nondistended, Hall catheter in place with clear/yellow urine MSK: No joint tenderness Integumentary: No rashes Neuro: Normal speech, normal affect Vitals reviewed Assessment and Plan Acute cystitis Hematuria Chronic indwelling Hall catheter History of C. difficile Completed course of antibiotics recently with oral vancomycin for C. difficile Reports diarrhea has significantly improved, having 1 bowel movement a day, soft/jellylike Blood culture with no growth in 24 hours Urine culture with 3+ yeast History of Pseudomonas in the urine Started on meropenem 06/14 overnight, discontinued on 06/16 Started on diflucan for fungal UTI ID following Hypotension Blood pressures reviewed including previous hospitalization Tends to run soft in the low 100s/90s systolic Given IV fluid/albumin today Monitor blood pressures closely If persistently low will consider starting midodrine Hypoalbuminemia Monitor albumin level, encourage oral intake given dose of albumin 06/16 for relatively low blood pressure Hypokalemia Hypocalcemia Trend electrolytes replace as needed Microcytic anemia Trend H&H COPD History of lung CA Chronic pain Continue bronchodilators as needed Pain control Resume home meds GI/DVT prophylaxis-SCD Advanced directive full code Time Spent Managing Pts Care (In Minutes): 35
--- NOTE | 2024-06-17 11:14 | RAD REPORT ---
EXAM DESCRIPTION: RAD - Foot Left 3 View - 06/17/2024 10:58 am CLINICAL HISTORY: Left Foot pain FINDINGS: No fracture or dislocation is seen. Mild hallux valgus deformity. Mild arthritis involves DIP and PIP joints. Soft tissue swelling A radiopaque foreign body not seen
--- NOTE | 2024-06-17 11:14 | RAD REPORT ---
EXAM DESCRIPTION: RAD - Foot Right 3 View - 06/17/2024 10:58 am CLINICAL HISTORY: Right foot pain FINDINGS: No fracture or dislocation is seen Mild hallux valgus deformity Mild arthritis DIP PIP joints. A radiopaque foreign body not seen.
[2024-06-18 05:59] LABS: Hematocrit 36.2 % (39.6-49.0); Hemoglobin 12.5 g/dL (13.6-17.9); MCH 31.4 pg (27.0-35.0); MCHC 34.5 g/dL (32.0-36.0); MCV 91.1 fL (80-100); MPV 6.5 fL (7.6-11.3); Platelets 437 thou/uL (152-406); RBC Red Blood Cell Count 3.97 M/uL (4.33-5.43); Red Cell Distribution Width 13.4 % (12.1-15.2)
[2024-06-18 06:23] LABS: Albumin 2.8 g/dL (3.4-5.0); Albumin/Globulin Ratio 0.8 (1.1-1.8); Bilirubin Total 0.8 mg/dL (0.2-1.0); Globulin 3.5 g/dL (2.3-3.5); Protein, Total 6.3 g/dL (6.4-8.2)
[2024-06-18] MEDS ORDERED: ACETAMINOPHEN 325 MG TABLET PO PRN (07:40)
[2024-06-18] MEDS ORDERED: CYANOCOBALAMIN 1000MCG/ML INJ IM SCH (08:00)
[2024-06-18] MEDS: CHOLECALCIFEROL 25 MCG PO SCH (08:09)
[2024-06-18] MEDS: GALANTAMINE HBR 16 MG PO SCH (08:11)
[2024-06-18] MEDS: ASPIRIN 81 MG CHEWABLE TABLET PO SCH (08:12)
[2024-06-18] MEDS: AMIODARONE HCL 200 MG TAB PO SCH (08:12)
[2024-06-18] MEDS: FOLIC ACID 1 MG TABLET PO SCH (08:12)
--- NOTE | 2024-06-18 09:54 | P.DS ---
Admission Date: 06/14/24 Discharge Date: 06/18/24 Disposition: TRANSFER TO SNF - REHAB Discharge Condition: GOOD Reason for Admission: Hematuria,UTI Brief History of Present Illness: 78 yrs old Male with past medical history of hypertension, CAD status post quadruple bypass, GERD, lung cancer, COPD, hernia repair brought to ER with blood in his urine,. He reports he was recently discharged, treated with IV antibiotics, Hall was replaced in the emergency room. UA sent. Started on IV meropenem. No fever or chills. No nausea vomiting or diarrhea. Plan to admit for UTI, hematuria, IV antibiotics, IV fluids, Hospital Course: Assessment Acute cystitis Hematuria Chronic indwelling Hall catheter History of C. difficile Hypotension Hypoalbuminemia Hypokalemia Hypocalcemia Microcytic anemia COPD History of lung CA Chronic pain Patient was admitted to the hospital for weakness, hematuria, concern for urinary tract infection with recent MDR UTI, C. difficile treatment. He was recently admitted to the hospital from 05/29 to 06/09 and treated for UTI, C. difficile with IV meropenem, oral vancomycin. He had previously completed these treatments prior to coming back into the hospital, he reported he was very weak and had been having some blood in his urine. His urine was concerning initially for recurrent urinary tract infection and his culture resulted in 3+ yeast. Patient was started on oral Diflucan, hematuria has resolved. Patient worked with physical therapy and was indeed very weak. He was requiring max assist with transfers and limited to standing about 3 times. He is appropriate for SNF level of care and he has been accepted to [facility] for further PT prior to returning home. He has remained afebrile white blood cell count is within normal limits vital signs are stable. He does have a indwelling Hall catheter that was present on each admission and will need to follow-up with urology to determine if this can be removed Please continue your home indications as previously prescribed with the addition of fluconazole 20 mg daily for another 12 days Please follow-up with urologyDrJosué Ellis regarding your Hall catheter Vital Signs/Physical Exam: Temp Pulse Resp BP Pulse Ox 97.1 F 62 16 129/78 95 06/18/24 08:00 06/18/24 08:00 06/18/24 08:00 06/18/24 08:00 06/18/24 08:00 General: Alert, In no apparent distress, Oriented x3 HEENT: Atraumatic, PERRLA Neck: Supple, JVD not distended Respiratory: Clear to auscultation bilaterally, Normal air movement Cardiovascular: Regular rate/rhythm, Normal S1 S2 Gastrointestinal: Normal bowel sounds, No tenderness Musculoskeletal: No tenderness Integumentary: No rashes Neurological: Normal speech, Normal tone, Normal affect Urinary: Hall catheter Laboratory Data at Discharge: WBC 10.50 thou/uL (4.3-10.9) 06/18/24 05:42 Hgb 12.5 g/dL (13.6-17.9) L 06/18/24 05:42 Hct 36.2 % (39.6-49.0) L 06/18/24 05:42 Plt Count 437 thou/uL (152-406) H 06/18/24 05:42 Sodium 134 mEq/L (136-145) L 06/18/24 05:42 Potassium 5.0 mEq/L (3.5-5.1) D 06/18/24 05:42 BUN 18 mg/dL (7-18) 06/18/24 05:42 Creatinine 0.98 mg/dL (0.70-1.30) 06/18/24 05:42 Glucose 100 mg/dL (74-106) 06/18/24 05:42 Magnesium 2.2 mg/dL (1.6-2.4) 06/16/24 04:55 Total Bilirubin 0.8 mg/dL (0.2-1.0) 06/18/24 05:42 AST 13 U/L (15-37) L 06/18/24 05:42 ALT 19 U/L (16-61) 06/18/24 05:42 Alkaline Phosphatase 76 U/L (45-117) 06/18/24 05:42 Lipase 16 U/L (13-75) 06/14/24 18:49 Home Medications: Acetaminophen [Tylenol] 650 mg PO TIDP PRN 06/16/24 Amiodarone HCl [Pacerone] 200 mg PO BID 06/16/24 Aspirin Chewable [Aspirin Chewable*] 81 mg PO DAILY 06/16/24 Atorvastatin Calcium [Lipitor*] 40 mg PO BEDTIME 06/16/24 Carboxymethylcellulose Sodium [Refresh Tears] 3 drops EACH EYE Q8HP PRN 06/16/24 Cholecalciferol (Vitamin D3) [Vitamin D3] 25 mcg PO DAILY 06/16/24 Cyanocobalamin (Vitamin B-12) [Cyanocobalamin Injection] 1,000 mcg IM SEECOM 06/16/24 Folic Acid 1 mg PO DAILY 06/16/24 Galantamine HBr [Galantamine ER] 16 mg PO DAILY 06/16/24 Ketoconazole 1 appl TP SEECOM 06/16/24 Ketoconazole [Nizoral Cream*] 1 appl TOP DAILY 06/16/24 Montelukast Sodium [Singulair] 10 mg PO DAILY 6PM 06/16/24 Omeprazole 20 mg PO DAILY 06/16/24 Polyethyl Gly 3350 [Glycolax*] 17 gm PO DAILY 06/16/24 Tacrolimus 1 appl TP DAILY 06/16/24 Tamsulosin HCl [Flomax] 0.4 mg PO BEDTIME 06/16/24 Triamcinolone 0.1% Oint [Kenalog 0.1% Ointment*] 15 appl TOP BIDP PRN 06/16/24 Fluconazole 200 mg PO DAILY 12 Days #12 tab 06/18/24 New Medications: Fluconazole 200 mg PO DAILY 12 Days #12 tab Physician Discharge Instructions: Patient was admitted to the hospital for weakness, hematuria, concern for urinary tract infection with recent MDR UTI, C. difficile treatment. He was recently admitted to the hospital from 05/29 to 06/09 and treated for UTI, C. difficile with IV meropenem, oral vancomycin. He had previously completed these treatments prior to coming back into the hospital, he reported he was very weak and had been having some blood in his urine. His urine was concerning initially for recurrent urinary tract infection and his culture resulted in 3+ yeast. Patient was started on oral Diflucan, hematuria has resolved. Patient worked with physical therapy and was indeed very weak. He was requiring max assist with transfers and limited to standing about 3 times. He is appropriate for SNF level of care and he has been accepted to [facility] for further PT prior to returning home. He has remained afebrile white blood cell count is within normal limits vital signs are stable. He does have a indwelling Hall catheter that was present on each admission and will need to follow-up with urology to determine if this can be removed Please continue your home indications as previously prescribed with the addition of fluconazole 200 mg daily for another 12 days Please follow-up with urologyDr. Caleb regarding your Hall catheter Diet: Regular Activity: Fall precautions Followup: [facility] [Primary Care Provider] - 1-2 Weeks Evelio Ellis [ACTIVE - CAN ADMIT] - 1-2 Weeks Time spent managing pt's care (in minutes): 35
[2024-06-18 14:53] VITALS: BP 116/70; TEMP 97.3
[2024-06-18] MEDS ORDERED: MONTELUKAST 10 MG TAB PO SCH (18:00)
[2024-06-18] MEDS ORDERED: TAMSULOSIN 0.4 MG SR CAP PO SCH (21:00)
[2024-06-18] MEDS ORDERED: ATORVASTATIN 40 MG TAB PO SCH (21:00)
[2024-06-19] MEDS ORDERED: PANTOPRAZOLE 40MG TABLET PO SCH (06:30)
== END 2024-06-18 12:35 | DRG 699 ==
LOC: ER 18:24 → 2ND 22:12
PROVIDERS: ADMIT Internal Medicine; ATTEND Hospitalist
PROC: 0T9B70Z Drainage of Bladder with Drainage Device, Via Natural or Artificial Opening (ICD-10-PCS; principal; 2024-06-14)
DX: T83.518A Infection and inflammatory reaction due to other urinary catheter, initial encounter (principal); N10 Acute pyelonephritis; R64 Cachexia; I10 Essential (primary) hypertension; E87.6 Hypokalemia; E83.51 Hypocalcemia; G89.29 Other chronic pain; I95.9 Hypotension, unspecified; D50.9 Iron deficiency anemia, unspecified; K21.9 Gastro-esophageal reflux disease without esophagitis; J44.9 Chronic obstructive pulmonary disease, unspecified; E88.09 Other disorders of plasma-protein metabolism, not elsewhere classified; I25.10 Atherosclerotic heart disease of native coronary artery without angina pectoris; R31.0 Gross hematuria; Z95.1 Presence of aortocoronary bypass graft; Z88.8 Allergy status to other drugs, medicaments and biological substances; Z79.82 Long term (current) use of aspirin; Z90.49 Acquired absence of other specified parts of digestive tract; Z68.21 Body mass index [BMI] 21.0-21.9, adult; Z79.899 Other long term (current) drug therapy; Z87.891 Personal history of nicotine dependence; Z85.118 Personal history of other malignant neoplasm of bronchus and lung; Y84.8 Other medical procedures as the cause of abnormal reaction of the patient, or of later complication, without mention of misadventure at the time of the procedure
CPT/HCPCS: 36415; 74177; 80048; 80053; 81001; 81003; 83690; 83735; 84132; 85025; 85027; 87040; 87086; 87088; 93970; 96361; 96365; 96368; 97110; 97161; 97530; 99284; J2185; J7030; J7040; P9045; Q9967

== ENCOUNTER 2024-07-01 15:41 | Emergency (ER) | payer OTHER ==
[2024-07-01] MEDS ORDERED: NA CHLORIDE 0.9% 1,000 ML ONE (16:08)
[2024-07-01 16:28] LABS: Absolute Basophils 0.1 K/uL (0-0.5); Absolute Eosinophils 0.1 K/uL (0-0.5); Absolute Lymphocytes (CBC) 1.3 K/uL (0.7-4.9); Absolute Monocytes 0.6 K/uL (0.1-1.3); Basophils % 0.9 % (0-1.3); Eosinophils % 1.6 % (0-4.4); Hematocrit 38.8 % (39.6-49.0); Hemoglobin 12.8 g/dL (13.6-17.9); Lymphocytes % 18.3 % (15.3-44.8); MCV 90.9 fL (80-100); MPV 6.6 fL (7.6-11.3); Monocytes % 8.1 % (3.3-12.3); Neutrophils % 71.1 % (41.7-73.7); Platelets 317 thou/uL (152-406); RBC Red Blood Cell Count 4.27 M/uL (4.33-5.43)
[2024-07-01 16:47] LABS: Albumin 3.3 g/dL (3.4-5.0); Albumin/Globulin Ratio 0.8 (1.1-1.8); Anion Gap 8.8 mEq/L (5.0-15.0); Bilirubin Total 0.7 mg/dL (0.2-1.0); Globulin 4.2 g/dL (2.3-3.5); Protein, Total 7.5 g/dL (6.4-8.2); Troponin High Sensitivity 40.1 pg/mL (<58.9)
[2024-07-01 16:48] LABS: Potassium 3.8 mEq/L (3.5-5.1)
--- NOTE | 2024-07-01 16:52 | RAD REPORT ---
EXAM DESCRIPTION: CT - Abdomen Pelvis Wo Contrast - 07/01/2024 4:35 pm CLINICAL HISTORY: Abdominal pain COMPARISON: June 14, 2024 TECHNIQUE: Computed axial tomography of the abdomen and pelvis was obtained. IV and oral contrast we re not requested. All CT scans are performed using dose optimization technique as appropriate and may include automated exposure control or mA/KV adjustment according to patient size. FINDINGS: The evaluation of solid organs, vessels and bowel is limited secondary to the lack of con trast administration. Small area of atelectasis left lower lobe Multiple small hepatic cysts Spleen, adrenals, pancreas and left kidney are unremarkable 6.2 cm right renal cyst There is no evidence of diverticulitis. Prostate gland is markedly enlarged. Hall catheter within the bladder Large amount stool within the colon. No evidence of diverticulitis Mild chronic compression deformity L2 vertebral body Small to moderate right inguinal hernia contains a loop of nondilated bowel IMPRESSION: Small to moderate right inguinal hernia contains a loop of nondilated bowel Large amount stool within the colon
[2024-07-01 17:18] LABS: Specific Gravity 1.009 (1.005-1.030); Sqamous Epithelial None Seen /HPF (None Seen); Urine Bacteria <20 /HPF (<20); Urine Bilirubin NEGATIVE (Negative); Urine Blood 3+ (OVER) (Negative); Urine Clarity Extremely Turbid (Clear); Urine Color Brown (Yellow); Urine Culture Reflex Order REFLEXED; Urine Glucose NEGATIVE (Negative); Urine Ketones NEGATIVE (Negative); Urine Micro Reflex YN NO BILL MICROSCOPIC; Urine Mucus Slight /HPF (None Seen); Urine Nitrite NEGATIVE (Negative); Urine Protein 1+ (Negative); Urine RBC >50 /HPF (None Seen); Urine Urobilinogen Normal (Normal); Urine WBC >50 /HPF (<5); Urine pH 5.5 (5.0-7.0)
--- NOTE | 2024-07-01 17:53 | EDPHYS ---
Physician Documentation [facility] Name: David Kumar Age: 78 yrs Sex: Male : 1945 Arrival Date: 07/01/2024 Time: 15:41 Bed 15 Private MD: ED Physician Andrew Dougherty HPI: 07/01 17:32 This 78 yrs old Male presents to ER via EMS with complaints of Blood In Catheter. rt 17:32 Patient presents to the ED with reported hematuria. Patient reports having chronic rt hematuria for the past month. States that is unchanged. Patient reported to pull at his catheter last night. Reports that he has not had much to eat or drink for the past 1 days. Denies other acute complaints at this time, symptoms are moderate in severity, no other aggravating or elevating factors.. Historical: - Allergies: 15:44 Albuterol; rs5 15:44 barium sulfate; rs5 15:44 GABAPENTIN; rs5 - PMHx: 15:44 CAD; COPD; stage 1 lung cancer; Ulcers; rs5 - PSHx: 15:44 Cholecystectomy; hernia repair; quadruple bypass (Ulce); rs5 - Immunization history:: Adult Immunizations up to date. - Infectious Disease History:: Denies. - Social history:: Smoking status: Patient/guardian denies using tobacco, but has a distant history of tobacco abuse. - Family history:: not pertinent. ROS: 17:32 Constitutional: Negative for fever, chills, and weight loss, Cardiovascular: Negative rt for chest pain, palpitations, and edema, Respiratory: Negative for shortness of breath, cough, wheezing, and pleuritic chest pain, Abdomen/GI: Negative for abdominal pain, nausea, vomiting, diarrhea, and constipation, 17:32 : Positive for hematuria, Negative for Urinary retention, 17:32 Neuro: Positive for dizziness, Negative for loss of consciousness, Exam: 17:32 Constitutional: This is a well developed, well nourished patient who is awake, alert, rt and in no acute distress. Head/Face: Normocephalic, atraumatic. Chest/axilla: Normal chest wall appearance and motion. Nontender with no deformity. No lesions are appreciated. Cardiovascular: Regular rate and rhythm with a normal S1 and S2. No gallops, murmurs, or rubs. Normal PMI, no JVD. No pulse deficits. Respiratory: Lungs have equal breath sounds bilaterally, clear to auscultation and percussion. No rales, rhonchi or wheezes noted. No increased work of breathing, no retractions or nasal flaring. Abdomen/GI: Soft, non-tender, with normal bowel sounds. No distension or tympany. No guarding or rebound. No evidence of tenderness throughout. MS/ Extremity: Pulses equal, no cyanosis. Neurovascular intact. Full, normal range of motion. 17:32 ENT: Dry mucous membrane. 17:32 ECG was reviewed by the Attending Physician. Vital Signs: 15:42 BP 140 / 83; Pulse 88; Resp 18; Temp 97.9(O); Pulse Ox 97% on R/A; rs5 17:43 BP 125 / 63; Pulse 57; Resp 17; Pulse Ox 99% on R/A; rs5 18:01 BP 122 / 70; Pulse 80; Resp 17; Pulse Ox 98% on R/A; rs5 19:15 BP 102 / 67; Pulse 88; Resp 19; Pulse Ox 99% ; jj7 20:10 BP 124 / 67; Pulse 79; Resp 16; Pulse Ox 94% ; jj7 21:10 BP 112 / 66; Pulse 54; Resp 17; Pulse Ox 100% on 2 lpm NC; jj7 22:18 BP 109 / 57; Pulse 60; Resp 19; Temp 98.1; Pulse Ox 100% on NC; jj7 MDM: 15:45 Patient medically screened. rt 17:51 Differential Diagnosis UTI, RADHA, hematuria, recurrent infection. Data reviewed: vital rt signs, nurses notes, lab test result(s), EKG, radiologic studies. Consideration of Admission/Observation Escalation of care including admission/observation considered. Management of patient was discussed with the following: Hospitalist: Discussed with hospitalist, he request transfer due to lack of urology coverage.. I considered the following discharge prescriptions or medication management in the emergency department Medications were administered in the Emergency Department. See MAR. Independent interpretation of the following test(s) in the Emergency Department CT Scan: My interpretation is Taylor catheter in appropriate position on my interpretation of CT scan image. Care significantly affected by the following chronic conditions: Chronic Obstructive Pulmonary Disease. Counseling: I had a detailed discussion with the patient and/or guardian regarding the historical points, exam findings, and any diagnostic results supporting the discharge/admit diagnosis, lab results, radiology results, the need to transfer to another facility. Response to treatment: There is no appreciated change of the patient's symptoms at this time. 17:53 ED course: [facility]:28 ED course: Signed out to me by Dr. Kirk, pending transfer, still have not heard rn back from [place]. Care transferred to Dr. Dougherty. . 21:12 ED course: EXAM DESCRIPTION: CT - Abdomen Pelvis Wo Contrast - 07/01/2024 4:35 pm sp4 CLINICAL HISTORY: Abdominal pain COMPARISON: June 14, 2024 TECHNIQUE: Computed axial tomography of the abdomen and pelvis was obtained. IV and oral contrast were not requested. All CT scans are performed using dose optimization technique as appropriate and may include automated exposure control or mA/KV adjustment according to patient size. FINDINGS: The evaluation of solid organs, vessels and bowel is limited secondary to the lack of contrast administration. Small area of atelectasis left lower lobe Multiple small hepatic cysts Spleen, adrenals, pancreas and left kidney are unremarkable 6.2 cm right renal cyst There is no evidence of diverticulitis. Prostate gland is markedly enlarged. Taylor catheter within the bladder Large amount stool within the colon. No evidence of diverticulitis Mild chronic compression deformity L2 vertebral body Small to moderate right inguinal hernia contains a loop of nondilated bowel IMPRESSION: Small to moderate right inguinal hernia contains a loop of nondilated bowel Large amount stool within the colon. . 21:13 ED course: Catheter was exchanged by APOLINAR PRADO collected from fresh catheter . sp4 07/01 15:45 Order name: UAM; Complete Time: 17:20 rt 07/01 15:45 Order name: CBC with Diff; Complete Time: 17:20 rt 07/01 15:45 Order name: CMP; Complete Time: 17:20 rt 07/01 15:45 Order name: Lipase; Complete Time: 17:20 rt 07/01 15:45 Order name: Troponin High Sensitivity; Complete Time: 17:20 rt 07/01 17:21 Order name: Urine Culture EDMS 07/01 21:13 Order name: Urinalysis W/Microscopic sp4 07/01 15:45 Order name: CT Abd/Pelvis - Without Contrast rt 07/01 15:45 Order name: EKG; Complete Time: 15:46 rt 07/01 15:45 Order name: IV Saline Lock; Complete Time: 16:29 rt 07/01 15:45 Order name: Labs collected and sent; Complete Time: 16: rt 07/01 15:45 Order name: EKG - Nurse/Tech; Complete Time: 16:29 rt EC:32 Rate is 55 beats/min. Rhythm is regular, 1st Degree Block with No ectopy. QRS Peel is rt Normal. ND interval is normal. QRS interval is normal. QT interval is normal. No Q waves. No ST changes noted. Interpreted by me. Administered Medications: 16:29 Drug: NS 0.9% IV 1000 ml IV at 1 bolus Per protocol; 1000 mL bolus Route: IV; Rate: 1 rs5 bolus; Site: left forearm; 19:10 Follow up: IV Status: Completed infusion jj7 18:00 Drug: Meropenem IV 1 grams IV at 1 calculated rate once; (mix in NS 100 mL) Route: IV; rs5 Rate: 1 calculated rate; Site: left forearm; 19:10 Follow up: IV Status: Completed infusion jj7 21:46 Drug: Piperacillin-Tazobactam IVPB 3.375 grams IVPB once over 60 mins; (mix in NS 100 jj7 mL) Route: IVPB; Infused Over: 60 mins; Site: left forearm; 22:19 Follow up: IV Status: Infusion continued upon transfer jj7 Disposition Summary: 07/01/24 17:52 Transfer Ordered Notes: Transfer Location: [facility] rt Reason: Higher level of care rt Condition: Stable rt Problem: an ongoing problem rt Symptoms: are unchanged rt Accepting Physician: (07/01/24 22:22) jj7 Diagnosis - Gross hematuria rt - Acute kidney injury rt - Confusion rt - Indwelling taylor catheter with UTI sp4 Forms: - Medication Reconciliation Form rt - SBAR form rt Signatures: Dispatcher [employer] EDAdalid Sebastian MD MD rn Johnson, Juwairiyah, RN RN jj7 Kendall Kirk MD MD rt Eduardo Doyle RN RN rs5 Andrew Dougherty MD MD sp4 Corrections: (The following items were deleted from the chart) 15:44 15:44 Social history: Smoking status: Patient denies any tobacco usage or history of. rs5 rs5 15:46 15:46 Abdomen Pelvis Wo Con+CT.RAD.BRZ ordered. EDMS EDMS : 17:52 Dr. washington sp4 : 21:11 Dr. molina jj7
--- NOTE | 2024-07-01 17:53 | ER ---
Nurse's Notes [facility] Name: David Kumar Age: 78 yrs Sex: Male : 1945 Arrival Date: 07/01/2024 Time: 15:41 Bed 15 Private MD: Diagnosis: Gross hematuria;Acute kidney injury;Confusion;Indwelling mahmood catheter with UTI Presentation: 07/01 15:42 Chief complaint: EMS states: [facility] toned out EMS for blood in urine rs5 and altered mental status. Pt also tested positive for covid 7 days ago. Coronavirus screen: At this time, the client does not indicate any symptoms associated with coronavirus-19. Ebola Screen: No symptoms or risks identified at this time. Initial Sepsis Screen: Does the patient meet any 2 criteria? Altered Mental Status. Yes Does the patient have a suspected source of infection? No. Patient's initial sepsis screen is negative. Risk Assessment: Do you want to hurt yourself or someone else? Patient reports no desire to harm self or others. Onset of symptoms was July 01, 2024. 15:42 Method Of Arrival: EMS: [facility] rs5 15:42 Acuity: CHRISTIANO 3 rs5 15:42 Care prior to arrival: IV initiated. 20 [place], in the left forearm. rs5 Historical: - Allergies: 15:44 Albuterol; rs5 15:44 barium sulfate; rs5 15:44 GABAPENTIN; rs5 - PMHx: 15:44 CAD; COPD; stage 1 lung cancer; Ulcers; rs5 - PSHx: 15:44 Cholecystectomy; hernia repair; quadruple bypass (Ulce); rs5 - Immunization history:: Adult Immunizations up to date. - Infectious Disease History:: Denies. - Social history:: Smoking status: Patient/guardian denies using tobacco, but has a distant history of tobacco abuse. - Family history:: not pertinent. Screenin:45 [facility] ED Fall Risk Assessment (Adult) History of falling in the last 3 months, rs5 including since admission No falls in past 3 months (0 pts) Confusion or Disorientation No (0 pts) Intoxicated or Sedated No (0 pts) Impaired Gait Yes (1 pt) Mobility Assist Device Used Yes (1 pt) Altered Elimination Yes (1 pt) Score/Fall Risk Level 3 or more points = High Risk Oriented to surroundings, Maintained a safe environment. Abuse screen: Denies threats or abuse. Nutritional screening: No deficits noted. Tuberculosis screening: No symptoms or risk factors identified. Assessment: 15:45 General: Appears in no apparent distress. uncomfortable, Behavior is calm, cooperative. rs5 Pain: Denies pain. Neuro: Level of Consciousness is awake, alert, obeys commands, Oriented to person, place, time, situation. Cardiovascular: Patient's skin is warm and dry. Respiratory: Airway is patent Respiratory effort is even, unlabored, Respiratory pattern is regular, symmetrical. GI: Abdomen is round non-distended, Abd is soft and non tender X 4 quads. : Mahmood in place to gravity drainage dark blood noted in catheter, provider notified. 15:45 EENT: No signs and/or symptoms were reported regarding the EENT system. Derm: Skin is rs5 intact, Skin is pink, warm \T\ dry. Musculoskeletal: Range of motion: intact in all extremities. 16:01 Reassessment: 500 cc dark red blood emptied from mahmood catheter, provider notified . rs5 16:52 Reassessment: Patient and/or family updated on plan of care and expected duration. Pain rs5 level reassessed. Patient is alert, oriented x 3, equal unlabored respirations, skin warm/dry/pink. 18:01 Reassessment: Patient and/or family updated on plan of care and expected duration. Pain rs5 level reassessed. Patient is alert, oriented x 3, equal unlabored respirations, skin warm/dry/pink. 19:15 General: Appears in no apparent distress. comfortable, Behavior is calm, cooperative, jj7 appropriate for age. Pain: Denies pain. : Mahmood in place to gravity drainage DARK RED BLOOD NOTED IN CATHETER. 21:22 Reassessment: REPORT CALLED TO LINDSAY FAYE AT [facility]. jj7 Vital Signs: 15:42 BP 140 / 83; Pulse 88; Resp 18; Temp 97.9(O); Pulse Ox 97% on R/A; rs5 17:43 BP 125 / 63; Pulse 57; Resp 17; Pulse Ox 99% on R/A; rs5 18:01 BP 122 / 70; Pulse 80; Resp 17; Pulse Ox 98% on R/A; rs5 19:15 BP 102 / 67; Pulse 88; Resp 19; Pulse Ox 99% ; jj7 20:10 BP 124 / 67; Pulse 79; Resp 16; Pulse Ox 94% ; jj7 21:10 BP 112 / 66; Pulse 54; Resp 17; Pulse Ox 100% on 2 lpm NC; jj7 22:18 BP 109 / 57; Pulse 60; Resp 19; Temp 98.1; Pulse Ox 100% on NC; jj7 ED Course: 15:42 Patient arrived in ED. rs5 15:43 Triage completed. rs5 15:43 Kendall Kirk MD is Attending Physician. rt 15:44 Eduardo Doyle, RN is Primary Nurse. rs5 15:45 Patient has correct armband on for positive identification. Placed in gown. Bed in low rs5 position. Call light in reach. Side rails up X2. 15:45 No provider procedures requiring assistance completed. rs5 16:37 CT Abd/Pelvis - Without Contrast In Process Unspecified. EDMS 18:35 spoke with Alexa at the [place] transfer center . faxed over all clinical's. bc6 19:15 Provided Education on: USE OF CATHETER. jj7 19:15 Maintain EMS IV. Dressing intact. Good blood return noted. Site clean \T\ dry. Gauge \T\ jj 7 site: 20G LEFT FOREARM. Flushed with 10 mL NS. 19:[address] FULL OF DARK RED BLOOD. PT ARRIVED TO ER WITH MAHMOOD. jj7 20:55 Attending Physician role handed off by Kendall Kirk MD sp4 20:55 Andrew Dougherty MD is Attending Physician. sp4 21:07 Mahmood cath removed intact, balloon deflated, OLD MAHMOOD REMOVED BY DR WILSON. jj7 21:08 Mahmood cath inserted, using sterile technique, 18 Fr., by ED staff, balloon inflated, to jj7 gravity drainage, urine specimen collected. other INSERTED BY DR WILSON Patient tolerated well. 21:22 Patient transferred, IV remains in place. jj7 21:47 SOCKS PROVIDED. jj7 Administered Medications: 16:29 Drug: NS 0.9% IV 1000 ml IV at 1 bolus Per protocol; 1000 mL bolus Route: IV; Rate: 1 rs5 bolus; Site: left forearm; 19:10 Follow up: IV Status: Completed infusion jj7 18:00 Drug: Meropenem IV 1 grams IV at 1 calculated rate once; (mix in NS 100 mL) Route: IV; rs5 Rate: 1 calculated rate; Site: left forearm; 19:10 Follow up: IV Status: Completed infusion jj7 21:46 Drug: Piperacillin-Tazobactam IVPB 3.375 grams IVPB once over 60 mins; (mix in NS 100 jj7 mL) Route: IVPB; Infused Over: 60 mins; Site: left forearm; 22:19 Follow up: IV Status: Infusion continued upon transfer jj7 Medication: 17:43 VIS not applicable for this client. rs5 Outcome: 17:52 ER care complete, transfer ordered by . rt 21:21 Transferred by ground EMS to [facility] Transfer form completed. jj7 X-rays sent w/ patient. 21:21 Condition: good 22:18 Transferred [facility]. jj7 22:22 Patient left the ED. jj7 Addendum: 07/04/2024 07:20 Addendum: Culture Results: Positive urine culture. faxed positive culture results to hayes Santos at the [place] [facility]/ fax number [phone]. Signatures: Dispatcher [employer] EDMS Shaye Winters Juwairiyah, RN RN jj7 Kendall Kirk MD MD rt Eduardo Doyle RN RN rs5 Eloina Rossi 6 Andrew Dougherty MD MD sp4 Corrections: (The following items were deleted from the chart) 07/01 15:44 15:44 Social history: Smoking status: Patient denies any tobacco usage or history of. rs5 rs5 21:08 19:[address] FULL OF DARK RED BLOOD jj7 jj7 21:10 21:08 Mahmood cath inserted, using sterile technique, 18 Fr., by ED staff, balloon jj7 inflated, to gravity drainage, other INSERTED BY DR WILSON Patient tolerated well. jj7
[2024-07-01] MEDS ORDERED: NA CHLORIDE 0.9% 100 ML ONE ×2 (17:56→21:31)
[2024-07-01] MEDS ORDERED: Meropenem 1000 MG/VIAL IV ONE (17:56)
[2024-07-01] MEDS ORDERED: PIPERACIL/TAZO 3.375 GM VIAL IV ONE (21:32)
[2024-07-01 21:38] LABS: Sqamous Epithelial None Seen /HPF (None Seen); Urine Bacteria None Seen /HPF (<20); Urine Culture Reflex Order REFLEXED; Urine Micro Reflex YN NO BILL MICROSCOPIC; Urine RBC >50 /HPF (None Seen); Urine WBC >50 /HPF (<5); Urine WBC Clump Many /HPF (None Seen)
[2024-07-01 21:39] LABS: Specific Gravity 1.028 (1.005-1.030); Urine Bilirubin Negative (Negative); Urine Clarity Extremely Turbid (Clear); Urine Color Dark-Brown (Yellow); Urine Glucose Negative (Negative); Urine Ketones Negative (Negative)
[2024-07-01 21:40] LABS: Urine Blood 3+ (OVER) (Negative); Urine Nitrite Negative (Negative); Urine Protein 2+ (Negative); Urine Urobilinogen Normal (Normal); Urine pH 5.5 (5.0-7.0)
[2024-07-01 22:35] VITALS: O2SAT 100
[2024-07-01 22:37] VITALS: BP 109/57; TEMP 98.1
--- NOTE | 2024-07-02 14:38 | EKG ---
Test Date: 2024-07-01 Test Time: 16:21:57 Sales Administration Specialist: THAI MEASUREMENT RESULTS: Intervals: Rate: 55 VA: 240 QRSD: 90 QT: 406 QTc: 388 [place]: P: VA: 240 QRS: -20 T: 58 INTERPRETIVE STATEMENTS: Sinus bradycardia with marked sinus arrhythmia with 1st degree AV block Anterior infarct, age undetermined Abnormal ECG Compared to ECG 07/01/2024 16:16:10 First degree AV block now present Myocardial infarct finding now present Junctional rhythm no longer present Electronically Signed On 07-02-24 14:38:02 CDT by Arnie Graham
--- NOTE | 2024-07-02 14:39 | EKG ---
Test Date: 2024-07-01 Test Time: 16:16:10 Control Room Technician: THAI MEASUREMENT RESULTS: Intervals: Rate: 57 CA: QRSD: 86 QT: 410 QTc: 399 [place]: P: CA: QRS: -17 T: 24 INTERPRETIVE STATEMENTS: Junctional rhythm Abnormal ECG Compared to ECG 12/21/2022 05:22:49 Junctional rhythm now present Sinus rhythm no longer present Sinus arrhythmia no longer present Left-axis deviation no longer present Myocardial infarct finding no longer present Electronically Signed On 07-02-24 14:38:14 CDT by Arnie Graham
== END 2024-07-01 22:22 ==
LOC: ER 15:41
DX: N17.9 Acute kidney failure, unspecified (principal); N39.0 Urinary tract infection, site not specified; R41.0 Disorientation, unspecified; K40.90 Unilateral inguinal hernia, without obstruction or gangrene, not specified as recurrent; J44.9 Chronic obstructive pulmonary disease, unspecified; Z95.1 Presence of aortocoronary bypass graft
CPT/HCPCS: 96365; 96367; 96361; 93005 ×2; 87088; 85025; 81001 ×2; 87086; 36415; 87077; 87186; 84484; 83690; 80053; 74176; 51702; 99285; J2543; J2185; J7030